=== PATIENT | female | born 1950 | race Caucasian/White ===

== ENCOUNTER 2018-01-11 10:46 | Emergency (ER) | payer OTHER, SELFPAY ==
[~2018-01-11] VITALS: Ht 165.1 cm; Wt 59.0 kg
[~2018-01-11 10:46] MED LIST: ACETAMINOPHEN; ALBU90OI6 INH; AMITRIPTYLINE 150 MG; ASCO500 PO; ASPI81CH PO; ASPI81EC; ASPI81EC PO; AZO; BISA5EC PO; BUTALBITAL; CAFFEINE; CELE200; CELE200 PO; CEPH500 PO; CETI10 PO; CHOL10002 PO; CLOP75 PO; CRANBERRY PO; CYAN1000 PO; CYCL10 PO; DIAZ5 PO; DICL75ER PO; DOXY100 PO; DULO60 PO; ERGO50000 PO; ESCI10 PO; ESCI20; ESCI20 PO; FISH1000 PO; GABA300 PO; GABA400 PO; GLIP10 PO; GLIP10ER; GLIP10ER PO; GLIP5 PO; GLYB5 PO; HYDCHL25 PO; HYDGUAL120 PO; LOSHYD100 PO; METF500; METF500 PO; METPRE4DP PO; MULVITMINF PO; NAPR500 PO; Norco 5-325 Ta1 EACH PO; OMEG1CAP30 PO; OXYACE5T PO; OXYACE7.5T PO; OXYC1TAB11 PO; OXYCODONE; PANT40 PO; PAXIL 37.5 MG; PHENA100 PO; PROACE100 PO; PROC10 PO; PROM25 PO; Percocet 10-321 EACH PO; RXPROM25 PO; SEROQUEL 50 MG; SITA100T2 PO; SOLI5 PO; VALS80; VALS80 PO; VIT B 12; VITAMIN B12; VITB100 PO
[2018-01-11 11:23] LABS: BASOPHILS ABSOLUTE AUTO 0.01 K/mm3 (0.00-0.23); BASOPHILS PERCENT AUTO 0 % (0-2); EOSINOPHILS ABSOLUTE AUTO 0.01 K/mm3 (0.00-0.68); EOSINOPHILS PERCENT AUTO 0 % (0-6); Hematocrit 36.9 % (33.0-51.0); Hemoglobin 12.4 g/dL (11.5-16.0); IMMATURE GRAN ABSOLUTE AUTO 0.12 K/mm3 (0.00-0.10); IMMATURE GRAN PERCENT AUTO 1 % (0-1); LYMPHOCYTES ABSOLUTE AUTO 2.57 K/mm3 (0.84-5.20); LYMPHOCYTES PERCENT AUTO 19 % (21-46); MONOCYTES ABSOLUTE AUTO 0.92 K/mm3 (0.16-1.47); MONOCYTES PERCENT AUTO 7 % (4-13); Mean Corpuscular HGB 28.5 pg (26.0-34.0); Mean Corpuscular HGB Conc 33.6 g/dL (31.5-36.5); Mean Corpuscular Volume 85 fL (80-100); Mean Platelet Volume 9.7 fL (9.1-12.4); NEUTROPHILS ABSOLUTE AUTO 10.01 K/mm3 (1.96-9.15); NEUTROPHILS PERCENT AUTO 73 % (41-73); Platelet Count 389 K/mm3 (150-400); RDW Coefficient Variation 12.4 % (11.7-14.2); RDW Standard Deviation 37.9 fL (35.1-46.3); Red Blood Cell Count 4.35 M/mm3 (3.80-5.20); White Blood Cell Count 13.64 K/mm3 (4.00-11.30)
[2018-01-11 11:43] LABS: Alanine Aminotransfer (ALT/SGP 19 U/L (12-78); Albumin, Blood 3.7 g/dL (3.4-5.0); Albumin/Globulin Ratio 0.9 (0.8-1.8); Alk Phos 81 U/L (50-136); Anion Gap 11 mmol/L (6-16); Aspartate Aminotrans (AST/SGOT 8 U/L (12-37); Bilirubin, Total 0.4 mg/dL (0.1-1.0); Blood Urea Nitrogen 55 mg/dL (8-24); Bun/Creatinine Ratio 30.9 (12.0-20.0); CO2, Blood 23 mmol/L (21-32); Calcium, Blood 9.5 mg/dL (8.5-10.1); Chloride, Blood 103 mmol/L (98-108); Creatinine, Blood 1.78 mg/dL (0.40-1.00); Globulin, Blood 3.9 g/dL (2.2-4.0); Glomerular Filtration Rate 30 (60-); Glucose, Blood 274 mg/dL (70-99); Potassium, Blood 4.4 mmol/L (3.5-5.5); Sodium, Blood 137 mmol/L (136-145); Total Protein, Blood 7.6 g/dL (6.4-8.2); Troponin I <0.015 ng/mL (0.000-0.040)
[2018-01-11 11:58] LABS: Influenza A Negative (NEGATIVE); Influenza B Negative (NEGATIVE)
[2018-01-11] MEDS ORDERED: ALBU90OI INH (12:08)
[2018-01-11] MEDS ORDERED: Prednisone20 MG PO (12:08)
== END 2018-01-11 13:24 | disposition home or self-care (01) ==
LOC: ER 10:46
PROVIDERS: Physician Assistant
DX: J44.1 Chronic obstructive pulmonary disease with (acute) exacerbation (principal); E11.9 Type 2 diabetes mellitus without complications; F17.200 Nicotine dependence, unspecified, uncomplicated; Z79.84 Long term (current) use of oral hypoglycemic drugs
CPT/HCPCS: 36415; 71046; 80053; 84484; 85025; 87070; 87186; 87205; 87804; 93005; 93010; 99284-25

== ENCOUNTER → 2018-10-29 | Outpatient (CLI) | payer OTHER ==
[~2018-10-29] MED LIST changes: +ACET325 PO; +ALBU90OI INH; +BISA10S PR; +BUDE10.22 INH; +FLUC150A PO; +GAVILAX17 GM PO; +Humulin R500 UNIT/1 SC; +INSULANPEN SC; +LEVFLO500; +LOSARTAN-HCTZ1 EAC2 PO; +ONDA4 PO; +Percocet 7.5-31 EACH PO; +Prednisone20 MG PO; +Synthroid75 MCG PO
[2018-10-29 18:55] LABS: Creatinine Urine 84.2 mg/dL (27.00-270.00); Protein, Urine Quantitative 11.9 mg/dL (0.0-11.9)
== END | disposition home or self-care (01) ==
LOC: LAB SRC 14:34 → LAB SHORT 14:34
PROVIDERS: Internal Medicine Nephrology
DX: N18.3 Chronic kidney disease, stage 3 (moderate) (principal); D63.1 Anemia in chronic kidney disease; N25.81 Secondary hyperparathyroidism of renal origin; E55.9 Vitamin D deficiency, unspecified; E78.00 Pure hypercholesterolemia, unspecified; D51.8 Other vitamin B12 deficiency anemias; D52.8 Other folate deficiency anemias; D50.9 Iron deficiency anemia, unspecified; R76.9 Abnormal immunological finding in serum, unspecified; R94.5 Abnormal results of liver function studies; R94.6 Abnormal results of thyroid function studies
CPT/HCPCS: 81050; 82043; 82570; 84156

== ENCOUNTER → 2019-01-27 | Outpatient (CLI) | payer OTHER | END | disposition home or self-care (01) | LOC: LAB SHORT 10:20 → LAB 10:20 | DX: N39.0 Urinary tract infection, site not specified (principal) | CPT/HCPCS: 87077; 87086; 87186 ==

== ENCOUNTER 2020-05-26 16:02 | Observation (INO) | payer OTHER ==
[~2020-05-26] VITALS: Ht 165.1 cm; Wt 61.3 kg
[~2020-05-26 16:02] MED LIST changes: -BUDE10.22 INH; -GAVILAX17 GM PO; +HUMULIN R100 UNIT/2 SC; -Humulin R500 UNIT/1 SC; +MIRALAX17 GM PO; +SYMBICORT 80-10.2 GM INH
[2020-05-26 16:26] LABS: Source, Urine Catheter
[2020-05-26 16:43] LABS: BASOPHILS ABSOLUTE AUTO 0.03 K/mm3 (0.00-0.23); BASOPHILS PERCENT AUTO 0 % (0-2); EOSINOPHILS ABSOLUTE AUTO 0.01 K/mm3 (0.00-0.68); EOSINOPHILS PERCENT AUTO 0 % (0-6); IMMATURE GRAN ABSOLUTE AUTO 0.09 K/mm3 (0.00-0.10); IMMATURE GRAN PERCENT AUTO 1 % (0-1); LYMPHOCYTES PERCENT AUTO 8 % (21-46); MONOCYTES ABSOLUTE AUTO 0.49 K/mm3 (0.16-1.47); MONOCYTES PERCENT AUTO 5 % (4-13); Mean Corpuscular HGB 27.8 pg (26.0-34.0); Mean Corpuscular HGB Conc 33.3 g/dL (31.5-36.5); Mean Corpuscular Volume 83 fL (80-100); Mean Platelet Volume 10.2 fL (9.1-12.4); NEUTROPHILS ABSOLUTE AUTO 8.15 K/mm3 (1.96-9.15); NEUTROPHILS PERCENT AUTO 85 % (41-73); Platelet Count 242 K/mm3 (150-400); RDW Coefficient Variation 12.7 % (11.7-14.2); Red Blood Cell Count 4.32 M/mm3 (3.80-5.20); White Blood Cell Count 9.57 K/mm3 (4.00-11.30)
[2020-05-26 16:55] LABS: Albumin, Blood 3.7 g/dL (3.4-5.0); Albumin/Globulin Ratio 0.9 (0.8-1.8); Bilirubin, Total 0.6 mg/dL (0.1-1.0); Bun/Creatinine Ratio 15.7 (12.0-20.0); Calcium, Blood 8.8 mg/dL (8.5-10.1); Creatinine, Blood 1.66 mg/dL (0.40-1.00); Globulin, Blood 3.9 g/dL (2.2-4.0); Potassium, Blood 3.6 mmol/L (3.5-5.5); Total Protein, Blood 7.6 g/dL (6.4-8.2)
[2020-05-26 17:13] LABS: Appearance, Urine Clear (Clear); Bilirubin, Urine Neg (Neg); Blood, Urine 2+ (Neg); Color, Urine Yellow (P-Yellow); Glucose Qualitative, Urine 2+ (Neg); Ketones, Urine 1+ (Neg); Leukocyte Esterase, Urine Neg (Neg); Nitrite, Urine Neg (Neg); Protein, Urine 2+ (Neg); Specific Gravity, Urine 1.015 (1.003-1.022); Urobilinogen, Urine NORM (Normal)
[2020-05-26 17:29] LABS: Bacteria Many /hpf; Squamous Epithelial Cells Rare /hpf (Few); White Blood Cells, Urine 0-2 /hpf (0-5)
[2020-05-26] MEDS ORDERED: ESCI20 PO (19:53)
[2020-05-26] MEDS ORDERED: SYNTHROID50 MC1 PO (19:56)
[2020-05-26] MEDS ORDERED: OXYCODONE-ACET1 EAC3 PO (19:57)
[2020-05-26] MEDS ORDERED: LOSARTAN POTAS100 M1 PO (19:58)
[2020-05-26] MEDS ORDERED: PLAVIX75 MG PO (19:58)
[2020-05-26] MEDS ORDERED: GLIP5 PO (19:59)
[2020-05-26 20:30] LABS: Thyroid Stimulating Hormone 0.562 uIU/mL (0.360-4.800)
[2020-05-26 20:39] LABS: Influenza A, PCR NEGATIVE (NEGATIVE); Influenza B, PCR NEGATIVE (NEGATIVE); Resp Syncytial Virus, PCR NEGATIVE (NEGATIVE); SARS-Cov-2 (COVID-19) PCR, MMC NEGATIVE (NEGATIVE)
[2020-05-26 20:44] LABS: Creatine Kinase MB 1.6 ng/mL (0.0-3.6); Creatine Kinase MB Index 0.5 (0.0-4.0)
[2020-05-27 00:10] LABS: Troponin I 0.024 ng/mL (0.000-0.040)
[2020-05-27 01:34] LABS: Creatine Kinase MB 1.5 ng/mL (0.0-3.6); Creatine Kinase MB Index 0.4 (0.0-4.0)
--- NOTE | 2020-05-27 06:35 | NUR ---
SHIFT SUMMARY- PT. NEW ADMIT FROM ED. A&OX2 WITH CONFUSION. HAS HX OF CVA WITH RT SIDED DEFICITS. PT. WEAK AND ON BEDREST LAST NIGHT. NO COMPLAINTS DURING THE NIGHT. RESTED QUIETLY IN BED MOST OF THE NIGHT, NO APPARENT DISTRESS NOTED. INCONT, ATTENDS IN PLACE. IV FLUIDS INFUSING, VSS. CALL LIGHT WITHIN REACH, SIDE RAILS UPX2, AND BED ALARM ON FOR SAFETY. WILL CONT TO MONITOR.
[2020-05-27] MEDS ORDERED: HYDCHL25 PO (07:31)
[2020-05-27] MEDS ORDERED: Ventolin/Prove6.7 GM INH (07:33)
[2020-05-27 07:41] LABS: BASOPHILS ABSOLUTE AUTO 0.02 K/mm3 (0.00-0.23); BASOPHILS PERCENT AUTO 0 % (0-2); EOSINOPHILS PERCENT AUTO 0 % (0-6); Hemoglobin 10.5 g/dL (11.5-16.0); IMMATURE GRAN ABSOLUTE AUTO 0.02 K/mm3 (0.00-0.10); IMMATURE GRAN PERCENT AUTO 0 % (0-1); LYMPHOCYTES ABSOLUTE AUTO 0.79 K/mm3 (0.84-5.20); LYMPHOCYTES PERCENT AUTO 16 % (21-46); MONOCYTES ABSOLUTE AUTO 0.45 K/mm3 (0.16-1.47); MONOCYTES PERCENT AUTO 9 % (4-13); Mean Corpuscular HGB 27.4 pg (26.0-34.0); Mean Corpuscular HGB Conc 32.8 g/dL (31.5-36.5); Mean Corpuscular Volume 84 fL (80-100); NEUTROPHILS ABSOLUTE AUTO 3.68 K/mm3 (1.96-9.15); NEUTROPHILS PERCENT AUTO 74 % (41-73); Platelet Count 204 K/mm3 (150-400); Red Blood Cell Count 3.83 M/mm3 (3.80-5.20); White Blood Cell Count 4.96 K/mm3 (4.00-11.30)
[2020-05-27 07:57] LABS: Troponin I 0.03 ng/mL (0.000-0.040)
[2020-05-27 08:01] LABS: Albumin/Globulin Ratio 0.8 (0.8-1.8); Bilirubin, Total 0.3 mg/dL (0.1-1.0); Bun/Creatinine Ratio 15.2 (12.0-20.0); Calcium, Blood 7.8 mg/dL (8.5-10.1); Creatinine, Blood 1.65 mg/dL (0.40-1.00); Globulin, Blood 3.6 g/dL (2.2-4.0); Potassium, Blood 3.4 mmol/L (3.5-5.5); Total Protein, Blood 6.6 g/dL (6.4-8.2)
[2020-05-27 08:14] LABS: Creatine Kinase MB 1.6 ng/mL (0.0-3.6); Creatine Kinase MB Index 0.4 (0.0-4.0)
[2020-05-27 08:32] LABS: U Amphetamine Screen Not Detected; U Barbituate Screen Not Detected; U Benzodiazapine Screen DETECTED; U Buprenorphine Screen Not Detected; U Cannabinoids Screen Not Detected; U Cocaine Screen Not Detected; U Methadone Screen Not Detected; U Methamphetamine Screen Not Detected; U Opiates Screen Not Detected; U Oxycodone Screen Not Detected; U Phencyclidine Screen Not Detected; U Propoxyphene Screen Not Detected
--- NOTE | 2020-05-27 12:51 | NUR ---
ECHOCARDIOGRAM COMPLETED
--- NOTE | 2020-05-27 17:29 | NUR ---
SHIFT SUMMARY- PT HAS BEEN AWAKE AND ALERT T/O THE DAY, PT ORIENTED TO PERSON AND PLACE. SLOW TO RESPOND AT TIMES. PT DENIES ANY COMPLANTS T/O THE DAY. 1 ASSIST WITH FWW TO BATHROOM. LS CLEAR/ DIMINISHED, ON RA, OCCASIONAL NPC NOTED. TELE SR WITH FIRST DEGREE AT 75. PT TOLERATING PO INTAKE. PT/OT RECOMMENDING SNF AT THIS TIME. NO OTHER ACUTE CHANGES THIS SHIFT.
[2020-05-28 05:51] LABS: BASOPHILS ABSOLUTE AUTO 0.06 K/mm3 (0.00-0.23); BASOPHILS PERCENT AUTO 1 % (0-2); EOSINOPHILS ABSOLUTE AUTO 0.56 K/mm3 (0.00-0.68); EOSINOPHILS PERCENT AUTO 10 % (0-6); Hematocrit 31.3 % (33.0-51.0); Hemoglobin 10.4 g/dL (11.5-16.0); IMMATURE GRAN ABSOLUTE AUTO 0.02 K/mm3 (0.00-0.10); IMMATURE GRAN PERCENT AUTO 0 % (0-1); LYMPHOCYTES PERCENT AUTO 34 % (21-46); MONOCYTES ABSOLUTE AUTO 0.79 K/mm3 (0.16-1.47); MONOCYTES PERCENT AUTO 14 % (4-13); Mean Corpuscular HGB 27.3 pg (26.0-34.0); Mean Corpuscular HGB Conc 33.2 g/dL (31.5-36.5); Mean Corpuscular Volume 82 fL (80-100); Mean Platelet Volume 10.3 fL (9.1-12.4); NEUTROPHILS ABSOLUTE AUTO 2.39 K/mm3 (1.96-9.15); NEUTROPHILS PERCENT AUTO 41 % (41-73); Platelet Count 194 K/mm3 (150-400); RDW Coefficient Variation 12.8 % (11.7-14.2); Red Blood Cell Count 3.81 M/mm3 (3.80-5.20); White Blood Cell Count 5.82 K/mm3 (4.00-11.30)
--- NOTE | 2020-05-28 05:58 | NUR ---
SHIFT SUMMARY- NO ACUTE EVENTS OVERNIGHT. PT. A&OX3, MENTATION IMPROVING. AWAKE MOST OF THE NIGHT. UP TO BATHROOM WITH 1 ASSIST AND WALKER, TOLERATED WELL. C/O R ARM PAIN MEDICATED PER EMAR WITH GOOD EFFECT. NO ACUTE DISTRESS NOTED, VSS. CALL LIGHT WITHIN REACH, SIDE RAILS UPX2, AND BED ALARM. WILL CONT TO MONITOR
[2020-05-28 06:17] LABS: Albumin, Blood 2.9 g/dL (3.4-5.0); Albumin/Globulin Ratio 0.9 (0.8-1.8); Bilirubin, Total 0.4 mg/dL (0.1-1.0); Calcium, Blood 7.7 mg/dL (8.5-10.1); Creatinine, Blood 1.65 mg/dL (0.40-1.00); Globulin, Blood 3.4 g/dL (2.2-4.0); Potassium, Blood 3.3 mmol/L (3.5-5.5); Total Protein, Blood 6.3 g/dL (6.4-8.2)
--- NOTE | 2020-05-28 16:45 | NUR ---
SHIFT SUMMARY- PT A/OX3, PLEASANT AND COOPERATIVE. PT REPORTS 3/10 CHRONIC LEFT SHOULDER PAIN. LS CEAR/ DIMINISHED IN THE BASES, ON RA. OCCASIONAL NPC NOTED. PT UP WITH 1 ASSIST WITH FWW TO BATHROOM, PT APPEARS TO BE STRONGER TODAY BUT STILL SLIGHTLY UNSTEADY AT TIMES. PT NOTED TO HAVE SOME CONTRACTURE TO RIGHT HAND WHICH SHE REPORTS IS CHRONIC R/T HX OF CVA. TELE SB AT 58. PT AWAITING SNF AT THIS TIME. NO OTHER ACUTE CHANGES THIS SHIFT.
--- NOTE | 2020-05-28 16:54 | NUR ---
REDNESS TO ARM- PT REPORTED REDNRESS TO RIGHT UPPER ARM, PT STATES SHE JUST NOTICED IT TODAY BUT THIS IS THE ARM THE SHE RECEIVED HER COVID VACCINE IN. RIGHT UPPER ARM DOES APPEAR TO BE RED DOWN TO THE ELBOW, MILD WARMTH NOTED. AREA MARKED AT THIS TIME.
[2020-05-29 05:13] LABS: Hematocrit 31.1 % (33.0-51.0); Hemoglobin 10.1 g/dL (11.5-16.0); Mean Corpuscular HGB 27.2 pg (26.0-34.0); Mean Corpuscular HGB Conc 32.5 g/dL (31.5-36.5); Mean Corpuscular Volume 84 fL (80-100); Mean Platelet Volume 10.6 fL (9.1-12.4); Platelet Count 205 K/mm3 (150-400); RDW Coefficient Variation 12.7 % (11.7-14.2); RDW Standard Deviation 38.5 fL (35.1-46.3); Red Blood Cell Count 3.72 M/mm3 (3.80-5.20); White Blood Cell Count 5.59 K/mm3 (4.00-11.30)
--- NOTE | 2020-05-29 05:30 | NUR ---
SHIFT SUMMARY- PT. A&OX3, MENTATION APPEARES TO BE AT BASELINE. PT. C/O OF RT ARM PAIN LAST NIGHT. NOTED RT ARM RED, SWOLLEN, AND WARM TO THE TOUCH. PER PT. THIS IS THE SITE WHERE RECEIVED COVID VACCINE. MEDICATED PER EMAR WITH GOOD EFFECT. PT. APPEARED TO HAVE RESTED COMFORTABLY T/O THE NIGHT, NO APPARENT DISTRESS NOTED. VSS. CALL LIGHT WITHIN REACH, SIDE RAILS UPX2, AND BED ALARM ON FOR SAFETY. WILL CONT TO MONITOR.
[2020-05-29 05:36] LABS: Albumin, Blood 2.7 g/dL (3.4-5.0); Albumin/Globulin Ratio 0.8 (0.8-1.8); Bilirubin, Total 0.2 mg/dL (0.1-1.0); Bun/Creatinine Ratio 18.8 (12.0-20.0); Calcium, Blood 7.8 mg/dL (8.5-10.1); Creatinine, Blood 1.7 mg/dL (0.40-1.00); Globulin, Blood 3.3 g/dL (2.2-4.0); Potassium, Blood 4.7 mmol/L (3.5-5.5)
== END 2020-05-29 15:49 | disposition home health service (06) ==
LOC: ER 16:02 → MEDS 16:03 → ENPENDDIS 05-29 14:20 → MEDS 05-29 15:49
PROVIDERS: Emergency Medicine; Internal Medicine; ADMIT Internal Medicine
DX: G93.40 Encephalopathy, unspecified (principal); I12.9 Hypertensive chronic kidney disease with stage 1 through stage 4 chronic kidney disease, or unspecified chronic kidney disease; N18.30 Chronic kidney disease, stage 3 unspecified; E11.22 Type 2 diabetes mellitus with diabetic chronic kidney disease; E11.51 Type 2 diabetes mellitus with diabetic peripheral angiopathy without gangrene; I65.21 Occlusion and stenosis of right carotid artery; E87.6 Hypokalemia; E03.9 Hypothyroidism, unspecified; E86.0 Dehydration; R53.1 Weakness; I72.0 Aneurysm of carotid artery; I69.322 Dysarthria following cerebral infarction; I69.351 Hemiplegia and hemiparesis following cerebral infarction affecting right dominant side; Z20.822 Contact with and (suspected) exposure to COVID-19; J44.9 Chronic obstructive pulmonary disease, unspecified; Z79.02 Long term (current) use of antithrombotics/antiplatelets; Z79.4 Long term (current) use of insulin; Z88.1 Allergy status to other antibiotic agents; Z88.0 Allergy status to penicillin; Z88.2 Allergy status to sulfonamides; Z88.8 Allergy status to other drugs, medicaments and biological substances
CPT/HCPCS: 0241U; 36415; 70450; 70496; 70498; 71045; 80053; 81001; 82140; 82550; 82553; 82947; 83605; 83880; 84145; 84443; 84484; 85025; 85027; 87086; 93005; 93010; 93306; 94640; 94760; 96372; 96374; 97110; 97162; 97165; 97530; 97535; 99285-25; A9270; G0378; J1650; J1885; J7030; Q9967

== ENCOUNTER 2021-02-22 18:20 | Emergency (ER) | payer OTHER ==
[~2021-02-22] VITALS: Ht 165.1 cm; Wt 63.5 kg
[~2021-02-22 18:20] MED LIST changes: +LOSARTAN POTAS100 M1 PO; +OXYCODONE-ACET1 EAC3 PO; +PLAVIX75 MG PO; +SYNTHROID50 MC1 PO; +Ventolin/Prove6.7 GM INH
[2021-02-22] MEDS ORDERED: LIDO700A20 TOP (20:02)
== END 2021-02-22 20:06 | disposition home or self-care (01) ==
LOC: ER 18:20
DX: S00.03XA Contusion of scalp, initial encounter (principal); Z88.0 Allergy status to penicillin; Z88.8 Allergy status to other drugs, medicaments and biological substances; Z88.2 Allergy status to sulfonamides; Z88.1 Allergy status to other antibiotic agents; Z79.4 Long term (current) use of insulin; Z79.899 Other long term (current) drug therapy; E11.9 Type 2 diabetes mellitus without complications; Z86.73 Personal history of transient ischemic attack (TIA), and cerebral infarction without residual deficits; Z87.891 Personal history of nicotine dependence; W18.30XA Fall on same level, unspecified, initial encounter
CPT/HCPCS: 70450; 72125; 99283-25; A9270

== ENCOUNTER 2021-05-25 14:24 | Emergency (ER) | payer OTHER ==
[~2021-05-25] VITALS: Ht 165.1 cm; Wt 63.5 kg
[~2021-05-25 14:24] MED LIST changes: +LIDO700A20 TOP
[2021-05-25 15:38] LABS: BASOPHILS ABSOLUTE AUTO 0.07 K/mm3 (0.00-0.23); BASOPHILS PERCENT AUTO 1 % (0-2); EOSINOPHILS ABSOLUTE AUTO 0.51 K/mm3 (0.00-0.68); EOSINOPHILS PERCENT AUTO 6 % (0-6); Hemoglobin 12.9 g/dL (11.5-16.0); IMMATURE GRAN ABSOLUTE AUTO 0.02 K/mm3 (0.00-0.10); IMMATURE GRAN PERCENT AUTO 0 % (0-1); LYMPHOCYTES ABSOLUTE AUTO 2.54 K/mm3 (0.84-5.20); LYMPHOCYTES PERCENT AUTO 32 % (21-46); MONOCYTES ABSOLUTE AUTO 0.62 K/mm3 (0.16-1.47); MONOCYTES PERCENT AUTO 8 % (4-13); Mean Corpuscular HGB Conc 32.3 g/dL (31.5-36.5); Mean Corpuscular Volume 87 fL (80-100); Mean Platelet Volume 9.6 fL (9.1-12.4); NEUTROPHILS ABSOLUTE AUTO 4.24 K/mm3 (1.96-9.15); NEUTROPHILS PERCENT AUTO 53 % (41-73); Platelet Count 309 K/mm3 (150-400); RDW Coefficient Variation 12.3 % (11.7-14.2); RDW Standard Deviation 39.4 fL (35.1-46.3); Red Blood Cell Count 4.61 M/mm3 (3.80-5.20)
[2021-05-25 15:46] LABS: Albumin, Blood 3.9 g/dL (3.4-5.0); Bilirubin, Total 0.2 mg/dL (0.1-1.0); Bun/Creatinine Ratio 14.5 (12.0-20.0); Calcium, Blood 8.8 mg/dL (8.5-10.1); Creatinine, Blood 1.52 mg/dL (0.40-1.00); Potassium, Blood 4.2 mmol/L (3.5-5.5); Total Protein, Blood 7.9 g/dL (6.4-8.2)
== END 2021-05-25 20:46 | disposition home or self-care (01) ==
LOC: ER 14:24
PROVIDERS: Physician Assistant
DX: R42 Dizziness and giddiness (principal); E11.9 Type 2 diabetes mellitus without complications; I10 Essential (primary) hypertension; Z79.899 Other long term (current) drug therapy; Z79.4 Long term (current) use of insulin; Z88.8 Allergy status to other drugs, medicaments and biological substances; Z88.0 Allergy status to penicillin; Z86.73 Personal history of transient ischemic attack (TIA), and cerebral infarction without residual deficits; Z87.891 Personal history of nicotine dependence; Z88.2 Allergy status to sulfonamides; Z88.1 Allergy status to other antibiotic agents
CPT/HCPCS: 36415; 80053; 85025; 93005; 93010; 99284-25

== ENCOUNTER → 2022-03-27 | Outpatient (CLI) | payer OTHER ==
[~2022-03-27] MED LIST changes: +AMLO10 PO
[2022-03-27 13:47] LABS: Alanine Aminotransfer (ALT/SGP 24 U/L (12-78); Albumin, Blood 2.8 g/dL (3.4-5.0); Albumin/Globulin Ratio 0.9 (0.8-1.8); Alk Phos 65 U/L (50-136); Anion Gap 5 mmol/L (6-16); Aspartate Aminotrans (AST/SGOT 19 U/L (12-37); Bilirubin, Total 0.2 mg/dL (0.1-1.0); Blood Urea Nitrogen 38 mg/dL (8-24); Bun/Creatinine Ratio 23.6 (12.0-20.0); CHOL/HDL RATIO 3.2; CO2, Blood 29 mmol/L (21-32); Calcium, Blood 8.9 mg/dL (8.5-10.1); Chloride, Blood 104 mmol/L (98-108); Cholesterol 146 mg/dL (50-200); Creatinine, Blood 1.61 mg/dL (0.40-1.00); Free Thyroxine 0.95 ng/dL (0.70-1.60); Globulin, Blood 3.1 g/dL (2.2-4.0); Glomerular Filtration Rate 34 (60-); Glucose, Blood 57 mg/dL (70-99); HDL Cholesterol 46 mg/dL (>39); LDL/HDL RATIO 1.7; Low Density Lipoprotein Chol 77 mg/dL (0-110); Potassium, Blood 4.3 mmol/L (3.5-5.5); Sodium, Blood 138 mmol/L (136-145); T3 Uptake 36 % (30-39); Total Protein, Blood 5.9 g/dL (6.4-8.2); Triglycerides 114 mg/dL (30-160); Very Low Density Lipoprot Chol 23 mg/dL (6-32)
[2022-03-27 14:25] LABS: Creatinine, Urine Random 38.6 mg/dL (27.00-270.00); Microalb/Creat Ratio UR, Rand 77.202 mg/g (0.000-30.000); Microalbumin, Random Urine 29.8 mg/L (0.000-20.000)
== END | disposition home or self-care (01) ==
LOC: LAB SHORT 07:20
PROVIDERS: Internal Medicine Hematology & Oncology
DX: E11.59 Type 2 diabetes mellitus with other circulatory complications (principal); E11.22 Type 2 diabetes mellitus with diabetic chronic kidney disease; I12.9 Hypertensive chronic kidney disease with stage 1 through stage 4 chronic kidney disease, or unspecified chronic kidney disease; N18.9 Chronic kidney disease, unspecified; E03.4 Atrophy of thyroid (acquired); E78.2 Mixed hyperlipidemia; M85.80 Other specified disorders of bone density and structure, unspecified site
CPT/HCPCS: 80053; 80061; 82043; 82306; 82570; 83036; 84156; 84439; 84443; 84479

== ENCOUNTER 2022-08-29 17:32 | Emergency (ER) | payer OTHER ==
[~2022-08-29] VITALS: Ht 165.1 cm; Wt 65.3 kg
[~2022-08-29 17:32] MED LIST changes: +DULCOLAX400 MG/5 M PO; +GUAI200; +LOPE2C PO; +NYSTRIT TOP; +PERISHIELD OIN452 GM TP; +ROSU5 PO; +SENN187 PO; +TUMS500 MG PO
[2022-08-29 21:30] VITALS: BP 165/72
[2022-08-29] MEDS ORDERED: HYDR1TAB94 PO (21:38)
[2022-08-29] MEDS ORDERED: NARCAN4 M1 INH (21:38)
== END 2022-08-29 22:25 ==
LOC: ER 17:32
DX: S72.141A Displaced intertrochanteric fracture of right femur, initial encounter for closed fracture (principal); W05.0XXA Fall from non-moving wheelchair, initial encounter; E11.22 Type 2 diabetes mellitus with diabetic chronic kidney disease; I12.9 Hypertensive chronic kidney disease with stage 1 through stage 4 chronic kidney disease, or unspecified chronic kidney disease; J44.9 Chronic obstructive pulmonary disease, unspecified; N18.9 Chronic kidney disease, unspecified; E03.9 Hypothyroidism, unspecified; M19.90 Unspecified osteoarthritis, unspecified site; Z87.891 Personal history of nicotine dependence
CPT/HCPCS: 72192; 73502; 99284-25

== ENCOUNTER 2022-08-31 19:12 | Inpatient (IN) | payer OTHER ==
[~2022-08-31] VITALS: Ht 167.6 cm; Wt 86.2 kg
[~2022-08-31 19:12] MED LIST changes: +HYDR1TAB94 PO; +NARCAN4 M1 INH
[2022-08-31 20:41] LABS: BASOPHILS ABSOLUTE AUTO 0.05 K/mm3 (0.00-0.23); BASOPHILS PERCENT AUTO 0 % (0-2); EOSINOPHILS ABSOLUTE AUTO 0.09 K/mm3 (0.00-0.68); EOSINOPHILS PERCENT AUTO 1 % (0-6); Hematocrit 31.3 % (33.0-51.0); Hemoglobin 10.2 g/dL (11.5-16.0); IMMATURE GRAN ABSOLUTE AUTO 0.05 K/mm3 (0.00-0.10); IMMATURE GRAN PERCENT AUTO 0 % (0-1); LYMPHOCYTES ABSOLUTE AUTO 1.83 K/mm3 (0.84-5.20); LYMPHOCYTES PERCENT AUTO 14 % (21-46); MONOCYTES PERCENT AUTO 10 % (4-13); Mean Corpuscular HGB 27.6 pg (26.0-34.0); Mean Corpuscular HGB Conc 32.6 g/dL (31.5-36.5); Mean Corpuscular Volume 85 fL (80-100); Mean Platelet Volume 9.3 fL (9.1-12.4); NEUTROPHILS ABSOLUTE AUTO 9.54 K/mm3 (1.96-9.15); NEUTROPHILS PERCENT AUTO 74 % (41-73); Platelet Count 235 K/mm3 (150-400); RDW Coefficient Variation 12.9 % (11.7-14.2); RDW Standard Deviation 39.7 fL (35.1-46.3); Red Blood Cell Count 3.69 M/mm3 (3.80-5.20); White Blood Cell Count 12.86 K/mm3 (4.00-11.30)
[2022-08-31 20:59] LABS: Albumin, Blood 3.2 g/dL (3.4-5.0); Albumin/Globulin Ratio 0.8 (0.8-1.8); Bilirubin, Total 0.3 mg/dL (0.1-1.0); Bun/Creatinine Ratio 19.5 (12.0-20.0); Calcium, Blood 8.2 mg/dL (8.5-10.1); Globulin, Blood 3.8 g/dL (2.2-4.0); Potassium, Blood 4.8 mmol/L (3.5-5.5)
[2022-08-31 21:08] LABS: Base Excess Venous 0.8 mmol/L; Bicarbonate Venous 24.8 mmol/L (24.0-30.0); PCO2 Venous 43.1 mmHg (38-42); pH Blood Venous 7.39 (7.34-7.37)
[2022-08-31 21:35] LABS: Source, Urine Straight Cath
[2022-08-31 21:37] LABS: Bilirubin, Urine Neg (Neg); Blood, Urine 3+ (Neg); Glucose Qualitative, Urine 3+ (Neg); Ketones, Urine Neg (Neg); Leukocyte Esterase, Urine Neg (Neg); Nitrite, Urine Neg (Neg); Protein, Urine 3+ (Neg); Specific Gravity, Urine 1.015 (1.003-1.022); Urobilinogen, Urine NORM (Normal)
[2022-08-31 21:42] LABS: Appearance, Urine Hazy (Clear); Color, Urine Yellow (P-Yellow)
[2022-08-31 21:43] LABS: Bacteria Many /hpf; Hyaline Casts 0-2 /lpf (0-2); Red Blood Cells, Urine 0-2 /hpf (0-2); Squamous Epithelial Cells Not Seen /hpf (Few)
[2022-09-01 00:21] VITALS: BP 142/109
[2022-09-01 05:26] VITALS: BP 144/53
--- NOTE | 2022-09-01 05:58 | NUR ---
PT ARRIVED TO THE UNIT FROM ED. ORIENTED TO THE ROOM. PT WAS INC OF URINE UPON ARRIVAL. SHE WAS CLEANED AND ATTENDS CHANGED. PT SLEPT FOR THE THE DURATION OF THIS SHIFT. INC THIS MORNING, PUREWIC PLACED. PT MEDICATED FOR PAIN NEEDED.
[2022-09-01 07:49] VITALS: BP 135/50
[2022-09-01 15:56] VITALS: BP 135/53
--- NOTE | 2022-09-01 17:59 | NUR ---
SHIFT SUMMARY: NO ACUTE EVENTS. IS CONFUSED, THINKS SHE'S IN HER TRAILER, WANTED TO GET DRESSED AND GO SHOPPING. HAD TO REINFORCE MANY TIMES THAT SHE WAS IN THE HOSPITAL. HAS DECUB ON R MEDIAL HEEL LIKELY FROM INTERNALLY ROTATING HER HIP. NEW IV PLACED AFTER SHE REMOVED THE TWO SHE HAD, FLUIDS INFUSING. GAVE TYLENOL FOR PAIN, WHICH ONLY GAVE PARTIAL RELIEF. DID NOT WANT TO GIVE NARCOTICS THIS MAY BE AFFECTING HER MENTATION.
[2022-09-01 20:03] VITALS: BP 168/71
[2022-09-02 04:42] VITALS: BP 162/75
[2022-09-02 05:46] LABS: BASOPHILS ABSOLUTE AUTO 0.05 K/mm3 (0.00-0.23); BASOPHILS PERCENT AUTO 0 % (0-2); EOSINOPHILS ABSOLUTE AUTO 0.07 K/mm3 (0.00-0.68); EOSINOPHILS PERCENT AUTO 1 % (0-6); Hematocrit 30.4 % (33.0-51.0); Hemoglobin 10.2 g/dL (11.5-16.0); IMMATURE GRAN ABSOLUTE AUTO 0.08 K/mm3 (0.00-0.10); IMMATURE GRAN PERCENT AUTO 1 % (0-1); LYMPHOCYTES ABSOLUTE AUTO 1.07 K/mm3 (0.84-5.20); LYMPHOCYTES PERCENT AUTO 9 % (21-46); MONOCYTES PERCENT AUTO 8 % (4-13); Mean Corpuscular HGB 27.2 pg (26.0-34.0); Mean Corpuscular HGB Conc 33.6 g/dL (31.5-36.5); Mean Corpuscular Volume 81 fL (80-100); Mean Platelet Volume 10.1 fL (9.1-12.4); NEUTROPHILS ABSOLUTE AUTO 9.64 K/mm3 (1.96-9.15); NEUTROPHILS PERCENT AUTO 81 % (41-73); Platelet Count 270 K/mm3 (150-400); RDW Coefficient Variation 12.4 % (11.7-14.2); RDW Standard Deviation 37.1 fL (35.1-46.3); Red Blood Cell Count 3.75 M/mm3 (3.80-5.20); White Blood Cell Count 11.91 K/mm3 (4.00-11.30)
[2022-09-02 06:23] LABS: Bun/Creatinine Ratio 22.1 (12.0-20.0); Creatinine, Blood 1.54 mg/dL (0.40-1.00); Potassium, Blood 4.1 mmol/L (3.5-5.5)
--- NOTE | 2022-09-02 06:40 | NUR ---
AOX2, PLEASANTLY CONFUSED, VSS ON RA, TOLERATING CARES, PATIENT PULLED 2 IV'S LAST NIGHT. CURRENTLY RUNNING FLUIDS AGAIN. LAST BM ON 09/02. PUREWICK IN PLACE AND FUNCTIONAL. HYPERTENSIVE WITH SBP IN 160'S, HYDRALAZINE PRN ORDERED FOR SBP GREATER THAN 170.
[2022-09-02 07:51] VITALS: BP 166/71
--- NOTE | 2022-09-02 12:10 | NUR ---
NURSE NOTE PATIENTS CBG WAS OVER 500. LAB WAS CALLED AND DRAW WAS PERFORMED. DR MARCUS WAS NOTIFIED AND RECEIVED ADDITIONAL ORDERS. PATIENTS FAMILY BROUGHT PATIENT SNACKS.
[2022-09-02 12:20] LABS: Glucose, Blood 589 mg/dL (70-99)
--- NOTE | 2022-09-02 12:40 | NUR ---
NURSE NOTE THIS RN AGREES WITH SHIFT ASSESSMENT OF STUDENT NURSE.
[2022-09-02 16:36] VITALS: BP 162/70
--- NOTE | 2022-09-02 17:16 | NUR ---
PT&OX3, SHE DOES NOT KNOW THE DATE, BUT IS AWARE OF THE TIME OF DAY. SHE DOESNT USE HER CALL BUTTON APPROPRIATELY, REQUIRING STAFF TO CHECK ON HER TO ASSESS NEEDS. PT REPORTS PAIN WHEN STAFF REPOSITIONS HER IN BED. CBGS CONTINUE TO BE ELEVATED, HUMALOG GIVEN. AT 1153, LAB REPORTED THAT THE PT'S BLOOD SUGAR WAS 586, 10 UNITS OF HUMALOG GIVEN. PT IS AFEBRILE, BUT ALL OTHER VITAL SIGNS ARE STABLE. PLAN IS TO DISCHARGE PT BACK TO [facility] TOMORROW. WILL CONTINUE PLAN OF CARE.
[2022-09-02 20:09] VITALS: BP 145/70
--- NOTE | 2022-09-02 22:22 | NUR ---
START OF SHIFT THIS STUDENT NURSE ASSUMED CARE OF PT AT 1700 UNDER THE OBSERVATION OF NURSE FARTUN ARAUJO. PT SLEEPY BUT AROUSABLE, AND APPEARED TO BE IN NO DISTRESS OR DISCOMFORT. PT TEMP SLIGHTLY ELEVATED, TYLENOL PLANNED TO BE ADMINISTERED TO ADDRESS IT. BP ELEVATED, WILL MONITOR FOR S/S DURING SHIFT NO MEDICATION ORDERED FOR HS. 30 UNITS OF GLARGINE ADMINISTERED AND VERIFIED BY NURSE FARTUN ARAUJO AND MURALI WEIR. PT LEFT IN A POSITION OF COMFORT AND SAFETY WITH BED RAILS RAISED, NONSKID SOCKS IN PLACE, BED IN LOW POSITION, CALL LIGHT WITHIN REACH, AND BED ALARM ENABLED. WILL CONTINUE TO MONITOR.
--- NOTE | 2022-09-03 03:22 | NUR ---
SHIFT SUMMARY THIS STUDENT NURSE ADDRESSED THE PT'S CONDITION THROUGH THE ASSESSMENT AND MONITORING OF THE PT'S CONDITION THROUGHOUT MY SHIFT. SHE WAS ROUSABLE AND RESPONSIVE TO VERBAL STIMULI. SHE WAS A&O X3 FOR MOST OF THE SHIFT. LOOKING AT POSSIBLE D/C TO [facility] ON 09/03. HS MEDICATION ADMINISTERED, ASSESSENT COMPLETED. WILL CONTINUE TO MONITOR HER CONDITION THROUGHOUT THE SHIFT. PT KEPT IN A STATE OF COMFORT AND SAFETY WITH BED RAILS RAISED, BED IN LOW POSITION, CALL LIGHT WITHIN REACH, AND BED ALARM ACTIVATED.
[2022-09-03 04:04] VITALS: BP 159/57
--- NOTE | 2022-09-03 06:08 | NUR ---
I HAVE OBSERVED STUDENTS ASSESSMENTS, INTERACTIONS WITH PT AND HER DOCUMENTAION. I AGREE WITH THE ABOVE.
[2022-09-03 07:52] VITALS: BP 148/57
[2022-09-03 15:41] VITALS: BP 144/60
--- NOTE | 2022-09-03 18:12 | NUR ---
PT A&OX4, CALLS APPROPRIATELY. PT'S ORIENTATION HAS IMPROVED SINCE YESTERDAY. SHE DID NOT USE HER CALL LIGHT YESTERDAY BUT TODAY SHE CALLS EVERYTIME SHE NEEDS PAIN MEDS AND/OR NEEDS TO GET ON THE BEDPAN. CBGS CONTINUE TO RUN HIGH, NOTIFIED, 8 UNITS OF HUMALOG GIVEN BEFORE LUNCH WELL DINNER. PT REPORTS HIP PAIN, TYLENOL GIVEN AND EFFECTIVE. PT WILL BECOME NPO AT MIDNIGHT FOR POSSIBLE HIP SURGERY TOMORROW. WILL CONTINUE PLAN OF CARE.
[2022-09-03 21:04] VITALS: BP 150/56
--- NOTE | 2022-09-03 22:59 | NUR ---
JAZZ ODONNELL CALLED GLORIA BEARD TO REPORT PTS BS BEING 400. ONE TIME ORDER OF 6 UNITS OF HUMALOG ORDERED.
[2022-09-04] VITALS (12 sets, daily range): BP systolic 114–159; BP diastolic 53–87
--- NOTE | 2022-09-04 04:22 | NUR ---
SHIFT SUMMARY; NO ACUTE CHANGES OVERNIGHT. THE PT HAS BEEN SLEEPING IN BED FOR THE ENTIRETY OF THE NIGHT. THE PT WAS MADE NPO AT MIDNIGHT, PER REPORT THE PT IS HAVING A SURGICAL PROCEDURE DONE TODAY ON HER R HIP. THE PT DENIES ANY SOB, CHEST PAIN/PRESSURE, N/V OR NUMBNESS AND TINGLING. CURRENTLY THE PT IS SLEEPIING IN BED WITH THE BED IN THE LOWEST POSITION AND THE CALL LIGHT AT BEDSIDE.
--- NOTE | 2022-09-04 10:45 | NUR ---
TO OR FOR HIP SURG.
--- NOTE | 2022-09-04 12:46 | NUR ---
09/04/22 Rubin6 Norma Aragon PT RECEIVED PREOPERATIVE BLOCK PERFORMED BY DR. LOCKETT
--- NOTE | 2022-09-04 14:39 | NUR ---
PACU NOTE PT DENTURES ARE IN PLACE UPON TRANSFER TO MEDICAL FLOOR
--- NOTE | 2022-09-04 14:47 | NUR ---
RETURNED FROM PACU R HIP WITH 3 MIHAELA DRNGS, C/D/I. VSS. DENIES PAIN.
--- NOTE | 2022-09-04 18:43 | NUR ---
SHIFT SUMMARY PT REMAINS WITHDRAWN & QUIET. ANSWERS YES OR NO APPROPRIATELY TO QUESTIONS ASKED, OFFERS NO EXTRA DIALOGUE. IS ABLE TO MAKE HER NEEDS KNOWN. DRSNGS ON R HIP REMAIN C/D/I. PT EVAL WAS DONE TODAY, ALTHOUGH PT WAS UNABLE TO PARTICIPATE TODAY. WGHT BEARING STATUS IS TOE TOUCH ONLY WITH THE R FOOT. MEDICATED ONCE FOR C/O PAIN AFTER SURG. PT WAS HUNGRY AT DINNER, DIET ORDER ENTERED FOR ADA DIET. PROVIDED SANDWICH FOR DINNER. CALL LIGHT WITHIN REACH, BED IN LOW POSITION.
[2022-09-05 04:46] VITALS: BP 135/56
[2022-09-05 05:30] LABS: BASOPHILS ABSOLUTE AUTO 0.01 K/mm3 (0.00-0.23); BASOPHILS PERCENT AUTO 0 % (0-2); EOSINOPHILS PERCENT AUTO 0 % (0-6); Hematocrit 25.2 % (33.0-51.0); Hemoglobin 8.3 g/dL (11.5-16.0); IMMATURE GRAN ABSOLUTE AUTO 0.05 K/mm3 (0.00-0.10); IMMATURE GRAN PERCENT AUTO 1 % (0-1); LYMPHOCYTES ABSOLUTE AUTO 0.89 K/mm3 (0.84-5.20); LYMPHOCYTES PERCENT AUTO 9 % (21-46); MONOCYTES ABSOLUTE AUTO 0.46 K/mm3 (0.16-1.47); MONOCYTES PERCENT AUTO 5 % (4-13); Mean Corpuscular HGB 26.9 pg (26.0-34.0); Mean Corpuscular HGB Conc 32.9 g/dL (31.5-36.5); Mean Corpuscular Volume 82 fL (80-100); Mean Platelet Volume 9.5 fL (9.1-12.4); NEUTROPHILS PERCENT AUTO 85 % (41-73); Platelet Count 313 K/mm3 (150-400); RDW Coefficient Variation 13.1 % (11.7-14.2); RDW Standard Deviation 38.9 fL (35.1-46.3); Red Blood Cell Count 3.08 M/mm3 (3.80-5.20); White Blood Cell Count 9.61 K/mm3 (4.00-11.30)
[2022-09-05 07:32] VITALS: BP 130/59
[2022-09-05 15:24] VITALS: BP 142/49
--- NOTE | 2022-09-05 17:36 | NUR ---
SHIFT SUMMARY PATIENT IS ALERT AND ORIENTED. PATIENT HAS HAD NO ACUTE EVENTS THIS SHIFT. VITAL SIGNS REVIEWED. PATIENT HAS HAD PAIN THIS SHIFT. MEDICATED PER EMAR. PATIENT HAS NOT COMPLAINED OF SOB, NAUSEA OR VOMITTING THIS SHIFT. BED IN LOCKED AND LOWEST POSITION. CALL LIGHT IN PLACE. PATIENT IS LOOKING FORWARD TO DISCHARGING TOMORROW.
[2022-09-05 19:15] VITALS: BP 137/54
--- NOTE | 2022-09-06 03:43 | NUR ---
SHIFT UNREMARKABLE. PT TOOK 2100 MEDICATIONS WITHOUT DIFFICULTY AND HAS SLEPT THROUGH MUCH OF REMAINDER OF SHIFT. PUREWICK IN PLACE AND DRAINING WELL. PLENTY OF URINE OUTPUT OVER COURSE OF SHIFT. EARLY THIS MORNING PT COMPLAINED OF BURNING SENSATION IN FEET THAT WAS ALLEVIATED BY TEMPORARILY REMOVING STOCKINGS. OTHERWISE HAS HAD ONLY MILD PAIN WELL MANAGED VIA EMAR. PT HAS BEEN AOX3-4 THROUGHOUT SHIFT. PLEASANT, COOPERATIVE WITH CARE. BED LOCKED IN LOWEST POSITION. CALL LIGHT LEFT WITHIN REACH.
[2022-09-06 05:13] VITALS: BP 145/61
[2022-09-06 07:38] VITALS: BP 158/63
[2022-09-06 09:46] LABS: Influenza A, PCR NEGATIVE (NEGATIVE); Influenza B, PCR NEGATIVE (NEGATIVE); Resp Syncytial Virus, PCR NEGATIVE (NEGATIVE); SARS-Cov-2 (COVID-19) PCR, MMC NEGATIVE (NEGATIVE)
[2022-09-06] MEDS ORDERED: OXYC5 PO (12:23)
[2022-09-06 14:42] VITALS: BP 120/47
--- NOTE | 2022-09-06 15:44 | NUR ---
SHIFT/DISCHARGE SUMMARY: NO NEW ACUTE CHANGES IN PATIENT CONDITION THIS SHIFT. PATIENT A&OX3. CALM, PLEASANT AND COOPERATIVE c CARE. USES CALL LIGHT APPROPRIATELY AND ABLE TO MAKE NEEDS KNOWN. PATIENT REPORTS PAIN TO R HIP. MEDICATED X1 c PO OXYCODONE AND TYLENOL THIS SHIFT c ADEQUATE RELIEF. PATIENT BS RANGES [id number] THIS SHIFT. RECEIVED INSULIN COVERAGE PER SLIDING SCALE. REPOSITIONED, AND ORAL CARE DONE. MIPELEX HEEL PROTECTOR DRESSING TO BILAT HEEL CHANGED TODAY. VITAL SIGNS REVIEWED. IV TO L WRIST SL AND DC'D. PATIENT DISCHARGE TO [facility] FACILITY FOR REHABILATATION. DISCHARGE PACKET AND RX HARD SCRIPTS FOR OXYCODONE WAS SENT WITH THE PIN MACHINE TENDER PERSONNEL TO THE FACILITY. EDUCATE PT REGARDING ADMITTING DX, S/S, TX, PAIN TO HIP AND REPOSITIONING. PATIENT STATED UNDERSTADING AND NO FURTHER QUESTION. RX WAS FAXED TO [facility] BY HACKSAW INSPECTOR. ALL PATIENT PERSONAL BELONGINGS WERE SENT WITH THE PATIENT. PATIENT LEFT THE ROOM AT AROUND 1527 AND TRANSPORTED VIA WHEELCHAIR BY [employer] PIN MACHINE TENDER PERSONNEL TO [facility].
== END 2022-09-06 15:27 | DRG 480 ==
LOC: ER 19:12 → MEDS 19:13 → ENPENDDIS 09-06 10:31 → MEDS 09-06 15:27
PROVIDERS: Emergency Medicine; Internal Medicine; Orthopaedic Surgery; ADMIT Internal Medicine
PROC: 0QS634Z Reposition Right Upper Femur with Internal Fixation Device, Percutaneous Approach (ICD-10-PCS; principal; 2022-09-04 11:00)
DX: S72.144A Nondisplaced intertrochanteric fracture of right femur, initial encounter for closed fracture (principal); G92.8 Other toxic encephalopathy; N17.9 Acute kidney failure, unspecified; D62 Acute posthemorrhagic anemia; T40.2X5A Adverse effect of other opioids, initial encounter; E86.0 Dehydration; I12.9 Hypertensive chronic kidney disease with stage 1 through stage 4 chronic kidney disease, or unspecified chronic kidney disease; E11.22 Type 2 diabetes mellitus with diabetic chronic kidney disease; N18.30 Chronic kidney disease, stage 3 unspecified; J44.9 Chronic obstructive pulmonary disease, unspecified; E03.9 Hypothyroidism, unspecified; F41.9 Anxiety disorder, unspecified; F32.A Depression, unspecified; M21.851 Other specified acquired deformities of right thigh; B95.5 Unspecified streptococcus as the cause of diseases classified elsewhere; W19.XXXA Unspecified fall, initial encounter; F01.50 Vascular dementia, unspecified severity, without behavioral disturbance, psychotic disturbance, mood disturbance, and anxiety; M19.90 Unspecified osteoarthritis, unspecified site; Z90.710 Acquired absence of both cervix and uterus; Z99.3 Dependence on wheelchair; Z98.890 Other specified postprocedural states; Z87.891 Personal history of nicotine dependence; Z88.0 Allergy status to penicillin; Z88.8 Allergy status to other drugs, medicaments and biological substances; Z88.2 Allergy status to sulfonamides; Z88.1 Allergy status to other antibiotic agents; Z79.51 Long term (current) use of inhaled steroids; Z79.02 Long term (current) use of antithrombotics/antiplatelets; Z79.84 Long term (current) use of oral hypoglycemic drugs; Z79.4 Long term (current) use of insulin; Z79.899 Other long term (current) drug therapy; Z79.890 Hormone replacement therapy; Z79.891 Long term (current) use of opiate analgesic; Z86.16 Personal history of COVID-19; Z20.822 Contact with and (suspected) exposure to COVID-19
CPT/HCPCS: 0241U; 36415; 70450; 71045; 73502; 80048; 80053; 81001; 82565; 82803; 82947; 83880; 85025; 87086; 93005; 93010; 94762; 96361; 96372; 96374; 97110; 97112; 97162; 97530; 99285-25; A9270; C1713; G0378; J1650; J1815; J2704; J3010; J7030; J7120; P9612; S0077

== ENCOUNTER 2022-09-17 12:11 | Emergency (ER) | payer OTHER ==
[~2022-09-17] VITALS: Ht 165.1 cm; Wt 63.5 kg
[~2022-09-17 12:11] MED LIST changes: +OXYC5 PO
[2022-09-17 14:39] VITALS: BP 118/75
== END 2022-09-17 14:39 | disposition home or self-care (01) ==
LOC: ER 12:11
DX: Z48.01 Encounter for change or removal of surgical wound dressing (principal); E11.9 Type 2 diabetes mellitus without complications; Z79.890 Hormone replacement therapy; Z79.899 Other long term (current) drug therapy; Z79.4 Long term (current) use of insulin; Z88.0 Allergy status to penicillin; Z88.2 Allergy status to sulfonamides; Z88.1 Allergy status to other antibiotic agents; Z87.891 Personal history of nicotine dependence
CPT/HCPCS: 99281

== ENCOUNTER 2022-11-14 02:43 | Emergency (ER) | payer OTHER ==
[~2022-11-14] VITALS: Ht 162.6 cm; Wt 72.6 kg
[2022-11-14] MEDS ORDERED: Voltaren100 GM TOP ×2 (05:32→06:25)
[2022-11-14 06:04] VITALS: BP 141/51
== END 2022-11-14 07:25 | disposition home or self-care (01) ==
LOC: ER 02:43
DX: M79.652 Pain in left thigh (principal); M79.662 Pain in left lower leg; Z96.641 Presence of right artificial hip joint; I12.9 Hypertensive chronic kidney disease with stage 1 through stage 4 chronic kidney disease, or unspecified chronic kidney disease; E11.22 Type 2 diabetes mellitus with diabetic chronic kidney disease; N18.30 Chronic kidney disease, stage 3 unspecified; E03.9 Hypothyroidism, unspecified; J44.9 Chronic obstructive pulmonary disease, unspecified; Z88.0 Allergy status to penicillin; Z88.1 Allergy status to other antibiotic agents; Z88.2 Allergy status to sulfonamides; Z88.8 Allergy status to other drugs, medicaments and biological substances; Z79.4 Long term (current) use of insulin; Z79.84 Long term (current) use of oral hypoglycemic drugs; Z79.899 Other long term (current) drug therapy; Z87.891 Personal history of nicotine dependence
CPT/HCPCS: 93971; 99284-25; A9270

== ENCOUNTER 2022-11-21 04:03 | Emergency (ER) | payer OTHER ==
[~2022-11-21] VITALS: Ht 165.1 cm; Wt 72.6 kg
[~2022-11-21 04:03] MED LIST changes: +Voltaren100 GM TOP
[2022-11-21 04:34] LABS: BASOPHILS ABSOLUTE AUTO 0.06 K/mm3 (0.00-0.23); BASOPHILS PERCENT AUTO 1 % (0-2); EOSINOPHILS ABSOLUTE AUTO 0.56 K/mm3 (0.00-0.68); EOSINOPHILS PERCENT AUTO 7 % (0-6); Hematocrit 31.4 % (33.0-51.0); IMMATURE GRAN ABSOLUTE AUTO 0.03 K/mm3 (0.00-0.10); IMMATURE GRAN PERCENT AUTO 0 % (0-1); LYMPHOCYTES ABSOLUTE AUTO 2.31 K/mm3 (0.84-5.20); LYMPHOCYTES PERCENT AUTO 28 % (21-46); MONOCYTES ABSOLUTE AUTO 0.81 K/mm3 (0.16-1.47); MONOCYTES PERCENT AUTO 10 % (4-13); Mean Corpuscular HGB 26.5 pg (26.0-34.0); Mean Corpuscular HGB Conc 31.8 g/dL (31.5-36.5); Mean Corpuscular Volume 83 fL (80-100); Mean Platelet Volume 9.4 fL (9.1-12.4); NEUTROPHILS ABSOLUTE AUTO 4.38 K/mm3 (1.96-9.15); NEUTROPHILS PERCENT AUTO 54 % (41-73); Platelet Count 304 K/mm3 (150-400); RDW Coefficient Variation 13.6 % (11.7-14.2); RDW Standard Deviation 41.1 fL (35.1-46.3); Red Blood Cell Count 3.77 M/mm3 (3.80-5.20); White Blood Cell Count 8.15 K/mm3 (4.00-11.30)
[2022-11-21 04:46] LABS: Bun/Creatinine Ratio 21.4 (12.0-20.0); Calcium, Blood 8.6 mg/dL (8.5-10.1); Creatinine, Blood 1.68 mg/dL (0.40-1.00); Potassium, Blood 3.6 mmol/L (3.5-5.5)
[2022-11-21 06:40] VITALS: BP 154/75
== END 2022-11-21 06:48 | disposition home or self-care (01) ==
LOC: ER 04:03
PROVIDERS: Emergency Medicine
DX: T38.3X1A Poisoning by insulin and oral hypoglycemic [antidiabetic] drugs, accidental (unintentional), initial encounter (principal); E11.649 Type 2 diabetes mellitus with hypoglycemia without coma; E11.22 Type 2 diabetes mellitus with diabetic chronic kidney disease; I12.9 Hypertensive chronic kidney disease with stage 1 through stage 4 chronic kidney disease, or unspecified chronic kidney disease; N18.30 Chronic kidney disease, stage 3 unspecified; Z88.0 Allergy status to penicillin; Z88.8 Allergy status to other drugs, medicaments and biological substances; Z88.1 Allergy status to other antibiotic agents; Z79.899 Other long term (current) drug therapy; Z79.4 Long term (current) use of insulin; E03.9 Hypothyroidism, unspecified; J44.9 Chronic obstructive pulmonary disease, unspecified; Z87.891 Personal history of nicotine dependence
CPT/HCPCS: 80048; 82947; 85025; 99285

== ENCOUNTER 2022-11-27 16:09 | Emergency (ER) | payer OTHER ==
[~2022-11-27] VITALS: Ht 165.1 cm; Wt 72.6 kg
[2022-11-27] MEDS ORDERED: NOVOLOG FL100 UNIT/3 SC (17:28)
[2022-11-27] MEDS ORDERED: GABA300 PO (17:30)
[2022-11-27] MEDS ORDERED: PIOG15 PO (17:31)
[2022-11-27 18:02] LABS: BASOPHILS ABSOLUTE AUTO 0.07 K/mm3 (0.00-0.23); BASOPHILS PERCENT AUTO 1 % (0-2); EOSINOPHILS ABSOLUTE AUTO 0.45 K/mm3 (0.00-0.68); EOSINOPHILS PERCENT AUTO 5 % (0-6); Hematocrit 33.4 % (33.0-51.0); Hemoglobin 10.7 g/dL (11.5-16.0); IMMATURE GRAN ABSOLUTE AUTO 0.04 K/mm3 (0.00-0.10); IMMATURE GRAN PERCENT AUTO 1 % (0-1); LYMPHOCYTES ABSOLUTE AUTO 1.89 K/mm3 (0.84-5.20); LYMPHOCYTES PERCENT AUTO 22 % (21-46); MONOCYTES ABSOLUTE AUTO 0.89 K/mm3 (0.16-1.47); MONOCYTES PERCENT AUTO 10 % (4-13); Mean Corpuscular HGB 26.7 pg (26.0-34.0); Mean Corpuscular Volume 83 fL (80-100); Mean Platelet Volume 9.8 fL (9.1-12.4); NEUTROPHILS ABSOLUTE AUTO 5.39 K/mm3 (1.96-9.15); NEUTROPHILS PERCENT AUTO 62 % (41-73); Platelet Count 349 K/mm3 (150-400); RDW Coefficient Variation 13.8 % (11.7-14.2); RDW Standard Deviation 42.1 fL (35.1-46.3); Red Blood Cell Count 4.01 M/mm3 (3.80-5.20); White Blood Cell Count 8.73 K/mm3 (4.00-11.30)
[2022-11-27 18:04] LABS: Albumin, Blood 3.5 g/dL (3.4-5.0); Albumin/Globulin Ratio 0.9 (0.8-1.8); Bilirubin, Total 0.2 mg/dL (0.1-1.0); Bun/Creatinine Ratio 22.9 (12.0-20.0); Calcium, Blood 8.8 mg/dL (8.5-10.1); Creatinine, Blood 2.05 mg/dL (0.40-1.00); Globulin, Blood 3.9 g/dL (2.2-4.0); Potassium, Blood 4.2 mmol/L (3.5-5.5); Total Protein, Blood 7.4 g/dL (6.4-8.2)
[2022-11-27 18:10] LABS: International Normalized Ratio 0.97; Prothrombin Time Results 10.2 Sec (9.7-11.5)
[2022-11-27 20:57] VITALS: BP 135/58
== END 2022-11-27 21:13 | disposition home or self-care (01) ==
LOC: ER 16:09
PROVIDERS: Emergency Medicine
DX: S09.90XA Unspecified injury of head, initial encounter (principal); M54.2 Cervicalgia; M79.605 Pain in left leg; W05.0XXA Fall from non-moving wheelchair, initial encounter; Z88.0 Allergy status to penicillin; Z88.2 Allergy status to sulfonamides; Z88.1 Allergy status to other antibiotic agents; Z79.899 Other long term (current) drug therapy; Z79.4 Long term (current) use of insulin; M19.90 Unspecified osteoarthritis, unspecified site; E11.22 Type 2 diabetes mellitus with diabetic chronic kidney disease; N18.30 Chronic kidney disease, stage 3 unspecified; I12.9 Hypertensive chronic kidney disease with stage 1 through stage 4 chronic kidney disease, or unspecified chronic kidney disease; J44.9 Chronic obstructive pulmonary disease, unspecified; Z87.891 Personal history of nicotine dependence
CPT/HCPCS: 70450; 72125; 73522; 73552; 73590; 80053; 85025; 85610; 93005; 93010; 99285-25

== ENCOUNTER → 2022-12-02 | Outpatient (CLI) | payer OTHER ==
[~2022-12-02] MED LIST changes: +NOVOLOG FL100 UNIT/3 SC; +PIOG15 PO
[2022-12-02 11:12] LABS: BASOPHILS ABSOLUTE AUTO 0.07 K/mm3 (0.00-0.23); BASOPHILS PERCENT AUTO 1 % (0-2); EOSINOPHILS ABSOLUTE AUTO 0.31 K/mm3 (0.00-0.68); EOSINOPHILS PERCENT AUTO 4 % (0-6); Hematocrit 35.9 % (33.0-51.0); Hemoglobin 11.1 g/dL (11.5-16.0); IMMATURE GRAN ABSOLUTE AUTO 0.02 K/mm3 (0.00-0.10); IMMATURE GRAN PERCENT AUTO 0 % (0-1); LYMPHOCYTES ABSOLUTE AUTO 1.69 K/mm3 (0.84-5.20); LYMPHOCYTES PERCENT AUTO 22 % (21-46); MONOCYTES ABSOLUTE AUTO 0.53 K/mm3 (0.16-1.47); MONOCYTES PERCENT AUTO 7 % (4-13); Mean Corpuscular HGB 26.4 pg (26.0-34.0); Mean Corpuscular HGB Conc 30.9 g/dL (31.5-36.5); Mean Corpuscular Volume 85 fL (80-100); NEUTROPHILS ABSOLUTE AUTO 5.19 K/mm3 (1.96-9.15); NEUTROPHILS PERCENT AUTO 66 % (41-73); Platelet Count 363 K/mm3 (150-400); RDW Coefficient Variation 13.6 % (11.7-14.2); RDW Standard Deviation 42.7 fL (35.1-46.3); Red Blood Cell Count 4.21 M/mm3 (3.80-5.20); White Blood Cell Count 7.81 K/mm3 (4.00-11.30)
[2022-12-02 11:48] LABS: Alanine Aminotransfer (ALT/SGP 35 U/L (12-78); Albumin, Blood 3.3 g/dL (3.4-5.0); Albumin/Globulin Ratio 0.8 (0.8-1.8); Alk Phos 107 U/L (50-136); Anion Gap 3 mmol/L (6-16); Aspartate Aminotrans (AST/SGOT 27 U/L (12-37); Bilirubin, Total 0.4 mg/dL (0.1-1.0); Blood Urea Nitrogen 42 mg/dL (8-24); Bun/Creatinine Ratio 24.3 (12.0-20.0); CHOL/HDL RATIO 3.2; CO2, Blood 27 mmol/L (21-32); Calcium, Blood 8.4 mg/dL (8.5-10.1); Chloride, Blood 110 mmol/L (98-108); Cholesterol 186 mg/dL (50-200); Creatinine, Blood 1.73 mg/dL (0.40-1.00); Free Thyroxine 0.82 ng/dL (0.70-1.60); Glomerular Filtration Rate 31 (60-); Glucose, Blood 115 mg/dL (70-99); HDL Cholesterol 58 mg/dL (>39); LDL/HDL RATIO 1.9; Low Density Lipoprotein Chol 112 mg/dL (0-110); Potassium, Blood 4.4 mmol/L (3.5-5.5); Sodium, Blood 140 mmol/L (136-145); Total Protein, Blood 7.3 g/dL (6.4-8.2); Triglycerides 81 mg/dL (30-160); Very Low Density Lipoprot Chol 16 mg/dL (6-32)
== END ==
LOC: LAB 09:16 → LAB SHORT 09:16
PROVIDERS: Nurse Practitioner Family
DX: E11.22 Type 2 diabetes mellitus with diabetic chronic kidney disease (principal); N18.30 Chronic kidney disease, stage 3 unspecified; D63.1 Anemia in chronic kidney disease; D50.9 Iron deficiency anemia, unspecified; E03.4 Atrophy of thyroid (acquired)
CPT/HCPCS: 80053; 80061; 83036; 84439; 84443; 85025

== ENCOUNTER 2022-12-17 13:20 | Emergency (ER) | payer OTHER ==
[~2022-12-17] VITALS: Ht 165.1 cm; Wt 72.6 kg
[2022-12-17 13:48] VITALS: BP 145/54
== END 2022-12-17 19:10 | disposition home or self-care (01) ==
LOC: ER 13:20
DX: S93.402A Sprain of unspecified ligament of left ankle, initial encounter (principal); X50.1XXA Overexertion from prolonged static or awkward postures, initial encounter; I12.9 Hypertensive chronic kidney disease with stage 1 through stage 4 chronic kidney disease, or unspecified chronic kidney disease; E11.22 Type 2 diabetes mellitus with diabetic chronic kidney disease; N18.30 Chronic kidney disease, stage 3 unspecified; J44.9 Chronic obstructive pulmonary disease, unspecified; E03.9 Hypothyroidism, unspecified; Z88.0 Allergy status to penicillin; Z88.1 Allergy status to other antibiotic agents; Z88.8 Allergy status to other drugs, medicaments and biological substances; Z88.2 Allergy status to sulfonamides; Z79.899 Other long term (current) drug therapy; Z79.4 Long term (current) use of insulin; Z87.891 Personal history of nicotine dependence
CPT/HCPCS: 29515; 73610; 99283-25

== ENCOUNTER 2022-12-24 11:14 | Emergency (ER) | payer OTHER ==
[~2022-12-24] VITALS: Ht 162.6 cm; Wt 68.0 kg
[2022-12-24 12:27] LABS: BASOPHILS ABSOLUTE AUTO 0.12 K/mm3 (0.00-0.23); BASOPHILS PERCENT AUTO 2 % (0-2); EOSINOPHILS ABSOLUTE AUTO 0.71 K/mm3 (0.00-0.68); EOSINOPHILS PERCENT AUTO 9 % (0-6); Hematocrit 33.2 % (33.0-51.0); Hemoglobin 10.6 g/dL (11.5-16.0); IMMATURE GRAN ABSOLUTE AUTO 0.01 K/mm3 (0.00-0.10); IMMATURE GRAN PERCENT AUTO 0 % (0-1); LYMPHOCYTES ABSOLUTE AUTO 2.24 K/mm3 (0.84-5.20); LYMPHOCYTES PERCENT AUTO 30 % (21-46); MONOCYTES ABSOLUTE AUTO 0.86 K/mm3 (0.16-1.47); MONOCYTES PERCENT AUTO 11 % (4-13); Mean Corpuscular HGB Conc 31.9 g/dL (31.5-36.5); Mean Corpuscular Volume 81 fL (80-100); Mean Platelet Volume 9.4 fL (9.1-12.4); NEUTROPHILS ABSOLUTE AUTO 3.66 K/mm3 (1.96-9.15); NEUTROPHILS PERCENT AUTO 48 % (41-73); Platelet Count 328 K/mm3 (150-400); RDW Standard Deviation 40.8 fL (35.1-46.3); Red Blood Cell Count 4.08 M/mm3 (3.80-5.20)
[2022-12-24 12:52] LABS: Albumin/Globulin Ratio 0.8 (0.8-1.8); Bilirubin, Total 0.1 mg/dL (0.1-1.0); Bun/Creatinine Ratio 21.3 (12.0-20.0); Calcium, Blood 8.7 mg/dL (8.5-10.1); Creatinine, Blood 1.78 mg/dL (0.40-1.00); Globulin, Blood 3.6 g/dL (2.2-4.0); Potassium, Blood 4.5 mmol/L (3.5-5.5); Total Protein, Blood 6.6 g/dL (6.4-8.2)
[2022-12-24 15:16] LABS: Source, Urine Voided
[2022-12-24 15:23] LABS: Appearance, Urine Clear (Clear); Bilirubin, Urine Neg (Neg); Blood, Urine Neg (Neg); Glucose Qualitative, Urine Neg (Neg); Ketones, Urine Neg (Neg); Leukocyte Esterase, Urine 1+ (Neg); Nitrite, Urine Pos (Neg); Protein, Urine 1+ (Neg); Urobilinogen, Urine NORM (Normal); pH, Urine 6.5 (5.0-8.0)
[2022-12-24 15:36] LABS: Color, Urine Pale Yellow (P-Yellow)
[2022-12-24 15:38] LABS: Bacteria Many /hpf; Red Blood Cells, Urine 0-2 /hpf (0-2); Squamous Epithelial Cells Rare /hpf (Few)
[2022-12-24] MEDS ORDERED: NITR100CA PO (17:00)
[2022-12-24 18:05] VITALS: BP 161/71
== END 2022-12-24 18:05 | disposition home or self-care (01) ==
LOC: ER 11:14
PROVIDERS: Emergency Medicine
DX: E11.65 Type 2 diabetes mellitus with hyperglycemia (principal); I12.9 Hypertensive chronic kidney disease with stage 1 through stage 4 chronic kidney disease, or unspecified chronic kidney disease; E11.22 Type 2 diabetes mellitus with diabetic chronic kidney disease; N18.30 Chronic kidney disease, stage 3 unspecified; J44.9 Chronic obstructive pulmonary disease, unspecified; E03.9 Hypothyroidism, unspecified; Z88.0 Allergy status to penicillin; Z88.1 Allergy status to other antibiotic agents; Z88.8 Allergy status to other drugs, medicaments and biological substances; Z88.2 Allergy status to sulfonamides; Z79.899 Other long term (current) drug therapy; Z87.891 Personal history of nicotine dependence
CPT/HCPCS: 51701; 80053; 81001; 82947; 85025; 93005; 93010; 96360; 96361; 99284-25; A9270; J7030

== ENCOUNTER 2022-12-25 15:20 | Emergency (ER) | payer OTHER ==
[~2022-12-25] VITALS: Ht 165.1 cm; Wt 72.6 kg
[~2022-12-25 15:20] MED LIST changes: +NITR100CA PO
[2022-12-25 17:14] LABS: BASOPHILS ABSOLUTE AUTO 0.09 K/mm3 (0.00-0.23); BASOPHILS PERCENT AUTO 1 % (0-2); EOSINOPHILS ABSOLUTE AUTO 0.77 K/mm3 (0.00-0.68); EOSINOPHILS PERCENT AUTO 10 % (0-6); Hematocrit 37.3 % (33.0-51.0); Hemoglobin 11.8 g/dL (11.5-16.0); IMMATURE GRAN ABSOLUTE AUTO 0.02 K/mm3 (0.00-0.10); IMMATURE GRAN PERCENT AUTO 0 % (0-1); LYMPHOCYTES ABSOLUTE AUTO 2.35 K/mm3 (0.84-5.20); LYMPHOCYTES PERCENT AUTO 30 % (21-46); MONOCYTES ABSOLUTE AUTO 0.87 K/mm3 (0.16-1.47); MONOCYTES PERCENT AUTO 11 % (4-13); Mean Corpuscular HGB 25.9 pg (26.0-34.0); Mean Corpuscular HGB Conc 31.6 g/dL (31.5-36.5); Mean Corpuscular Volume 82 fL (80-100); Mean Platelet Volume 9.5 fL (9.1-12.4); NEUTROPHILS ABSOLUTE AUTO 3.69 K/mm3 (1.96-9.15); NEUTROPHILS PERCENT AUTO 47 % (41-73); Platelet Count 353 K/mm3 (150-400); RDW Standard Deviation 41.1 fL (35.1-46.3); Red Blood Cell Count 4.56 M/mm3 (3.80-5.20); White Blood Cell Count 7.79 K/mm3 (4.00-11.30)
[2022-12-25 17:35] LABS: Bun/Creatinine Ratio 17.6 (12.0-20.0); Calcium, Blood 9.4 mg/dL (8.5-10.1); Creatinine, Blood 2.16 mg/dL (0.40-1.00); Potassium, Blood 4.2 mmol/L (3.5-5.5)
[2022-12-25 19:45] VITALS: BP 150/76
== END 2022-12-25 22:42 | disposition home or self-care (01) ==
LOC: ER 15:20
PROVIDERS: Emergency Medicine
DX: N39.0 Urinary tract infection, site not specified (principal); E11.65 Type 2 diabetes mellitus with hyperglycemia; I12.9 Hypertensive chronic kidney disease with stage 1 through stage 4 chronic kidney disease, or unspecified chronic kidney disease; E11.22 Type 2 diabetes mellitus with diabetic chronic kidney disease; N18.30 Chronic kidney disease, stage 3 unspecified; E03.9 Hypothyroidism, unspecified; J44.9 Chronic obstructive pulmonary disease, unspecified; Z88.0 Allergy status to penicillin; Z88.1 Allergy status to other antibiotic agents; Z88.8 Allergy status to other drugs, medicaments and biological substances; Z88.2 Allergy status to sulfonamides; Z79.899 Other long term (current) drug therapy; Z79.4 Long term (current) use of insulin; Z87.891 Personal history of nicotine dependence
CPT/HCPCS: 70450; 80048; 85025; 96365; 96366; 99285-25; J0696

== ENCOUNTER 2023-01-15 12:01 | Emergency (ER) | payer OTHER ==
[~2023-01-15] VITALS: Ht 165.1 cm; Wt 72.6 kg
[2023-01-15] MEDS ORDERED: CLIN300 PO (13:14)
[2023-01-15 15:29] VITALS: BP 149/64
== END 2023-01-15 15:30 | disposition home or self-care (01) ==
LOC: ER 12:01
DX: S90.922A Unspecified superficial injury of left foot, initial encounter (principal); L03.116 Cellulitis of left lower limb; E11.9 Type 2 diabetes mellitus without complications; X58.XXXA Exposure to other specified factors, initial encounter; Z88.0 Allergy status to penicillin; Z88.8 Allergy status to other drugs, medicaments and biological substances; Z88.2 Allergy status to sulfonamides; Z88.1 Allergy status to other antibiotic agents; Z79.899 Other long term (current) drug therapy; Z79.4 Long term (current) use of insulin; M19.90 Unspecified osteoarthritis, unspecified site; E11.22 Type 2 diabetes mellitus with diabetic chronic kidney disease; N18.30 Chronic kidney disease, stage 3 unspecified; I12.9 Hypertensive chronic kidney disease with stage 1 through stage 4 chronic kidney disease, or unspecified chronic kidney disease; E03.9 Hypothyroidism, unspecified; J44.9 Chronic obstructive pulmonary disease, unspecified; Z87.891 Personal history of nicotine dependence
CPT/HCPCS: 99283

== ENCOUNTER 2023-01-23 13:14 | Emergency (ER) | payer OTHER ==
[~2023-01-23] VITALS: Ht 165.1 cm; Wt 113.4 kg
[~2023-01-23 13:14] MED LIST changes: +CLIN300 PO
[2023-01-23 20:00] VITALS: BP 120/56
== END 2023-01-23 20:05 | disposition home or self-care (01) ==
LOC: ER 13:14
DX: B34.9 Viral infection, unspecified (principal); M79.605 Pain in left leg; M79.604 Pain in right leg; S91.302A Unspecified open wound, left foot, initial encounter; E03.9 Hypothyroidism, unspecified; J44.9 Chronic obstructive pulmonary disease, unspecified; I12.9 Hypertensive chronic kidney disease with stage 1 through stage 4 chronic kidney disease, or unspecified chronic kidney disease; E11.22 Type 2 diabetes mellitus with diabetic chronic kidney disease; N18.30 Chronic kidney disease, stage 3 unspecified; Z88.0 Allergy status to penicillin; Z88.1 Allergy status to other antibiotic agents; Z88.8 Allergy status to other drugs, medicaments and biological substances; Z88.2 Allergy status to sulfonamides; Z79.02 Long term (current) use of antithrombotics/antiplatelets; Z79.4 Long term (current) use of insulin; Z79.899 Other long term (current) drug therapy; Z87.891 Personal history of nicotine dependence; X58.XXXA Exposure to other specified factors, initial encounter
CPT/HCPCS: 99283; A9270; J7030

== ENCOUNTER 2023-02-13 05:21 | Day surgery (SDC) | payer OTHER | END 2023-02-13 22:38 | disposition home or self-care (01) | LOC: WOUND 05:21 | DX: E11.621 Type 2 diabetes mellitus with foot ulcer (principal); E11.59 Type 2 diabetes mellitus with other circulatory complications; E11.22 Type 2 diabetes mellitus with diabetic chronic kidney disease; N18.4 Chronic kidney disease, stage 4 (severe); J44.9 Chronic obstructive pulmonary disease, unspecified; G89.29 Other chronic pain; I87.2 Venous insufficiency (chronic) (peripheral); E11.51 Type 2 diabetes mellitus with diabetic peripheral angiopathy without gangrene | CPT/HCPCS: A9270; G0463 ==

== ENCOUNTER 2023-02-17 11:40 | Emergency (ER) | payer OTHER ==
[~2023-02-17] VITALS: Ht 165.1 cm; Wt 52.2 kg
[2023-02-17 14:19] LABS: BASOPHILS ABSOLUTE AUTO 0.09 K/mm3 (0.00-0.23); BASOPHILS PERCENT AUTO 1 % (0-2); EOSINOPHILS ABSOLUTE AUTO 0.52 K/mm3 (0.00-0.68); EOSINOPHILS PERCENT AUTO 6 % (0-6); Hemoglobin 12.2 g/dL (11.5-16.0); IMMATURE GRAN ABSOLUTE AUTO 0.02 K/mm3 (0.00-0.10); IMMATURE GRAN PERCENT AUTO 0 % (0-1); LYMPHOCYTES ABSOLUTE AUTO 1.82 K/mm3 (0.84-5.20); LYMPHOCYTES PERCENT AUTO 20 % (21-46); MONOCYTES ABSOLUTE AUTO 0.93 K/mm3 (0.16-1.47); MONOCYTES PERCENT AUTO 10 % (4-13); Mean Corpuscular HGB 24.1 pg (26.0-34.0); Mean Corpuscular HGB Conc 31.3 g/dL (31.5-36.5); Mean Corpuscular Volume 77 fL (80-100); Mean Platelet Volume 9.8 fL (9.1-12.4); NEUTROPHILS ABSOLUTE AUTO 5.82 K/mm3 (1.96-9.15); NEUTROPHILS PERCENT AUTO 63 % (41-73); Platelet Count 379 K/mm3 (150-400); RDW Coefficient Variation 14.5 % (11.7-14.2); RDW Standard Deviation 39.4 fL (35.1-46.3); Red Blood Cell Count 5.07 M/mm3 (3.80-5.20)
[2023-02-17 14:36] LABS: Albumin, Blood 2.9 g/dL (3.4-5.0); Albumin/Globulin Ratio 0.7 (0.8-1.8); Bilirubin, Total 0.1 mg/dL (0.1-1.0); Bun/Creatinine Ratio 17.8 (12.0-20.0); Creatinine, Blood 1.69 mg/dL (0.40-1.00); Potassium, Blood 4.1 mmol/L (3.5-5.5); Total Protein, Blood 6.9 g/dL (6.4-8.2)
[2023-02-17 15:00] VITALS: BP 139/60
[2023-02-17] MEDS ORDERED: Cephalexin500 MG PO (17:05)
[2023-02-17] MEDS ORDERED: HYDR1TAB94 PO (17:05)
== END 2023-02-17 18:43 | disposition home or self-care (01) ==
LOC: ER 11:40
PROVIDERS: Emergency Medicine
DX: E11.621 Type 2 diabetes mellitus with foot ulcer (principal); L97.529 Non-pressure chronic ulcer of other part of left foot with unspecified severity; L03.116 Cellulitis of left lower limb; E11.9 Type 2 diabetes mellitus without complications; Z88.0 Allergy status to penicillin; Z88.8 Allergy status to other drugs, medicaments and biological substances; Z88.2 Allergy status to sulfonamides; Z88.1 Allergy status to other antibiotic agents; Z79.899 Other long term (current) drug therapy; Z79.4 Long term (current) use of insulin; E11.22 Type 2 diabetes mellitus with diabetic chronic kidney disease; N18.30 Chronic kidney disease, stage 3 unspecified; I12.9 Hypertensive chronic kidney disease with stage 1 through stage 4 chronic kidney disease, or unspecified chronic kidney disease; E03.9 Hypothyroidism, unspecified; J44.9 Chronic obstructive pulmonary disease, unspecified; M19.90 Unspecified osteoarthritis, unspecified site; Z87.891 Personal history of nicotine dependence
CPT/HCPCS: 73701; 80053; 85025; 90471; 90715; 99284-25; J7030; Q9967

== ENCOUNTER 2023-02-20 05:05 | Day surgery (SDC) | payer OTHER ==
[~2023-02-20 05:05] MED LIST changes: +Cephalexin500 MG PO
== END 2023-02-20 22:47 | disposition home or self-care (01) ==
LOC: WOUND 05:05
DX: E11.621 Type 2 diabetes mellitus with foot ulcer (principal); L97.522 Non-pressure chronic ulcer of other part of left foot with fat layer exposed; L89.890 Pressure ulcer of other site, unstageable; E11.22 Type 2 diabetes mellitus with diabetic chronic kidney disease; N18.4 Chronic kidney disease, stage 4 (severe); J44.9 Chronic obstructive pulmonary disease, unspecified; G89.29 Other chronic pain; I87.2 Venous insufficiency (chronic) (peripheral); E11.51 Type 2 diabetes mellitus with diabetic peripheral angiopathy without gangrene; E11.21 Type 2 diabetes mellitus with diabetic nephropathy; E11.42 Type 2 diabetes mellitus with diabetic polyneuropathy
CPT/HCPCS: 93922; 93970; A9270; G0463

== ENCOUNTER 2023-02-27 02:25 | Day surgery (SDC) | payer OTHER | END 2023-02-27 22:50 | disposition home or self-care (01) | LOC: WOUND 02:25 | DX: E11.621 Type 2 diabetes mellitus with foot ulcer (principal); L97.522 Non-pressure chronic ulcer of other part of left foot with fat layer exposed; L97.529 Non-pressure chronic ulcer of other part of left foot with unspecified severity; E11.59 Type 2 diabetes mellitus with other circulatory complications; E11.22 Type 2 diabetes mellitus with diabetic chronic kidney disease; N18.4 Chronic kidney disease, stage 4 (severe); J44.9 Chronic obstructive pulmonary disease, unspecified; G89.29 Other chronic pain; I87.2 Venous insufficiency (chronic) (peripheral); E11.51 Type 2 diabetes mellitus with diabetic peripheral angiopathy without gangrene; E11.21 Type 2 diabetes mellitus with diabetic nephropathy | CPT/HCPCS: G0463 ==

== ENCOUNTER 2023-03-20 01:13 | Day surgery (SDC) | payer OTHER | END 2023-03-20 22:46 | disposition home or self-care (01) | LOC: WOUND 01:13 | DX: E11.621 Type 2 diabetes mellitus with foot ulcer (principal); L97.523 Non-pressure chronic ulcer of other part of left foot with necrosis of muscle; L89.890 Pressure ulcer of other site, unstageable; E11.59 Type 2 diabetes mellitus with other circulatory complications; E11.22 Type 2 diabetes mellitus with diabetic chronic kidney disease; N18.4 Chronic kidney disease, stage 4 (severe); J44.9 Chronic obstructive pulmonary disease, unspecified; G89.29 Other chronic pain; I87.2 Venous insufficiency (chronic) (peripheral); E11.51 Type 2 diabetes mellitus with diabetic peripheral angiopathy without gangrene; E11.21 Type 2 diabetes mellitus with diabetic nephropathy | CPT/HCPCS: A9270 ==

== ENCOUNTER 2023-03-27 02:52 | Day surgery (SDC) | payer OTHER | END 2023-03-27 22:56 | disposition home or self-care (01) | LOC: WOUND 02:52 | DX: E11.621 Type 2 diabetes mellitus with foot ulcer (principal); L97.523 Non-pressure chronic ulcer of other part of left foot with necrosis of muscle; L89.890 Pressure ulcer of other site, unstageable; E11.51 Type 2 diabetes mellitus with diabetic peripheral angiopathy without gangrene; I70.245 Atherosclerosis of native arteries of left leg with ulceration of other part of foot; E11.59 Type 2 diabetes mellitus with other circulatory complications; E11.22 Type 2 diabetes mellitus with diabetic chronic kidney disease; N18.4 Chronic kidney disease, stage 4 (severe); J44.9 Chronic obstructive pulmonary disease, unspecified; G89.29 Other chronic pain; I87.2 Venous insufficiency (chronic) (peripheral); E11.21 Type 2 diabetes mellitus with diabetic nephropathy | CPT/HCPCS: 87071; 87075; 87077; 87147; 87186; 87205; A9270 ==

== ENCOUNTER 2023-04-15 11:19 | Day surgery (SDC) | payer OTHER ==
[~2023-04-15] VITALS: Ht 165.1 cm; Wt 72.0 kg
[2023-04-15] VITALS (8 sets, daily range): BP systolic 88–136; BP diastolic 50–114
[2023-04-15 13:26] LABS: Albumin, Blood 3.1 g/dL (3.4-5.0); Albumin/Globulin Ratio 0.7 (0.8-1.8); Bilirubin, Total 0.3 mg/dL (0.1-1.0); Bun/Creatinine Ratio 16.5 (12.0-20.0); Calcium, Blood 7.6 mg/dL (8.5-10.1); Creatinine, Blood 1.58 mg/dL (0.40-1.00); Globulin, Blood 4.3 g/dL (2.2-4.0); Potassium, Blood 4.2 mmol/L (3.5-5.5); Total Protein, Blood 7.4 g/dL (6.4-8.2)
[2023-04-15 13:41] LABS: BASOPHILS ABSOLUTE AUTO 0.08 K/mm3 (0.00-0.23); BASOPHILS PERCENT AUTO 1 % (0-2); EOSINOPHILS ABSOLUTE AUTO 0.58 K/mm3 (0.00-0.68); EOSINOPHILS PERCENT AUTO 6 % (0-6); Hematocrit 34.3 % (33.0-51.0); Hemoglobin 10.8 g/dL (11.5-16.0); IMMATURE GRAN ABSOLUTE AUTO 0.03 K/mm3 (0.00-0.10); IMMATURE GRAN PERCENT AUTO 0 % (0-1); LYMPHOCYTES ABSOLUTE AUTO 2.06 K/mm3 (0.84-5.20); LYMPHOCYTES PERCENT AUTO 21 % (21-46); MONOCYTES ABSOLUTE AUTO 0.86 K/mm3 (0.16-1.47); MONOCYTES PERCENT AUTO 9 % (4-13); Mean Corpuscular HGB 23.5 pg (26.0-34.0); Mean Corpuscular HGB Conc 31.5 g/dL (31.5-36.5); Mean Corpuscular Volume 75 fL (80-100); Mean Platelet Volume 8.9 fL (9.1-12.4); NEUTROPHILS ABSOLUTE AUTO 6.42 K/mm3 (1.96-9.15); NEUTROPHILS PERCENT AUTO 64 % (41-73); Platelet Count 255 K/mm3 (150-400); RDW Coefficient Variation 18.7 % (11.7-14.2); RDW Standard Deviation 49.1 fL (35.1-46.3); White Blood Cell Count 10.03 K/mm3 (4.00-11.30)
--- NOTE | 2023-04-15 16:00 | NUR ---
PT BACK TO RECOVERY FROM PROCEDURE. R GROIN OOZING SMALL AMOUNT OF BLOOD. SITE INJECTED /C LIDO /C EPI. R GROIN STOPPED OOZING POST INJECTION. GROIN SITE SOFT AND NONTENDER. R GROIN DRSG CHANGED. WARM BLACKET GIVEN.
--- NOTE | 2023-04-15 17:06 | NUR ---
took over care from Diogo Calhoun RN. site is soft no bleeding at this time. dressing D&I. bruising noted around site and pubic area. pulse doppler right foot. patient denies any disvcomfort.
--- NOTE | 2023-04-15 17:19 | NUR ---
cbg 134
--- NOTE | 2023-04-15 17:45 | NUR ---
RIGHT GROIN SITE UNCHANGED/STABLE
--- NOTE | 2023-04-15 18:45 | NUR ---
REPORT GIVEN TO [facility] STAFF. IV REMOVED. PT TAKEN OUT OF THE HRT CENTER VIA W/C.
== END 2023-04-15 18:47 | disposition home or self-care (01) ==
LOC: MHTC 11:19
PROVIDERS: Radiology Diagnostic Radiology
DX: E11.51 Type 2 diabetes mellitus with diabetic peripheral angiopathy without gangrene (principal); I70.223 Atherosclerosis of native arteries of extremities with rest pain, bilateral legs; L97.529 Non-pressure chronic ulcer of other part of left foot with unspecified severity; E11.22 Type 2 diabetes mellitus with diabetic chronic kidney disease; I12.9 Hypertensive chronic kidney disease with stage 1 through stage 4 chronic kidney disease, or unspecified chronic kidney disease; N18.4 Chronic kidney disease, stage 4 (severe); J44.9 Chronic obstructive pulmonary disease, unspecified; E03.9 Hypothyroidism, unspecified; Z88.2 Allergy status to sulfonamides; Z88.8 Allergy status to other drugs, medicaments and biological substances; Z79.899 Other long term (current) drug therapy; Z79.4 Long term (current) use of insulin
CPT/HCPCS: 76937; 80053; 82947; 85025; 85347; 99152; 99153; C1725; C1760; C1769; C1876; C1887; C1894; C2623; J1644; J2250; J3010; J7030; Q9967

== ENCOUNTER 2023-05-14 14:50 | Emergency (ER) | payer OTHER ==
[~2023-05-14] VITALS: Ht 167.6 cm; Wt 63.5 kg
[2023-05-14] MEDS ORDERED: Keflex500 MG PO (17:41)
[2023-05-14 18:30] VITALS: BP 137/59
== END 2023-05-14 19:16 | disposition home or self-care (01) ==
LOC: ER 14:50
DX: E11.621 Type 2 diabetes mellitus with foot ulcer (principal); L97.529 Non-pressure chronic ulcer of other part of left foot with unspecified severity; R41.82 Altered mental status, unspecified; M19.90 Unspecified osteoarthritis, unspecified site; I12.9 Hypertensive chronic kidney disease with stage 1 through stage 4 chronic kidney disease, or unspecified chronic kidney disease; E11.22 Type 2 diabetes mellitus with diabetic chronic kidney disease; N18.30 Chronic kidney disease, stage 3 unspecified; E03.9 Hypothyroidism, unspecified; J44.9 Chronic obstructive pulmonary disease, unspecified; Z88.0 Allergy status to penicillin; Z88.1 Allergy status to other antibiotic agents; Z88.8 Allergy status to other drugs, medicaments and biological substances; Z88.2 Allergy status to sulfonamides; Z79.02 Long term (current) use of antithrombotics/antiplatelets; Z79.4 Long term (current) use of insulin; Z79.899 Other long term (current) drug therapy; Z79.890 Hormone replacement therapy; Z87.891 Personal history of nicotine dependence
CPT/HCPCS: 82947; 93005; 93010; 99285-25; A9270

== ENCOUNTER → 2023-05-27 | Outpatient (CLI) | payer OTHER ==
[~2023-05-27] MED LIST changes: +Keflex500 MG PO
[2023-05-27 15:06] LABS: Albumin, Blood 3.1 g/dL (3.4-5.0); Anion Gap 2 mmol/L (6-16); Blood Urea Nitrogen 49 mg/dL (8-24); Bun/Creatinine Ratio 26.5 (12.0-20.0); CO2, Blood 32 mmol/L (21-32); Calcium, Blood 9.5 mg/dL (8.5-10.1); Chloride, Blood 97 mmol/L (98-108); Creatinine, Blood 1.85 mg/dL (0.40-1.00); Glomerular Filtration Rate 29 (60-); Glucose, Blood 419 mg/dL (70-99); Phosphorus, Blood 4.1 mg/dL (2.5-4.9); Potassium, Blood 5.2 mmol/L (3.5-5.5); Sodium, Blood 131 mmol/L (136-145)
== END ==
LOC: LAB 11:50 → LAB SHORT 11:50
PROVIDERS: Internal Medicine Nephrology
DX: N18.30 Chronic kidney disease, stage 3 unspecified (principal)
CPT/HCPCS: 80069

== ENCOUNTER 2023-08-02 19:35 | Emergency (ER) | payer OTHER ==
[~2023-08-02] VITALS: Ht 165.1 cm; Wt 68.0 kg
[~2023-08-02 19:35] MED LIST changes: +CEFP200 PO; +Zithromax250 MG PO
[2023-08-02 20:21] LABS: BASOPHILS ABSOLUTE AUTO 0.12 K/mm3 (0.00-0.23); BASOPHILS PERCENT AUTO 1 % (0-2); EOSINOPHILS PERCENT AUTO 4 % (0-6); Hematocrit 39.7 % (33.0-51.0); IMMATURE GRAN ABSOLUTE AUTO 0.05 K/mm3 (0.00-0.10); IMMATURE GRAN PERCENT AUTO 0 % (0-1); LYMPHOCYTES PERCENT AUTO 8 % (21-46); MONOCYTES ABSOLUTE AUTO 0.87 K/mm3 (0.16-1.47); MONOCYTES PERCENT AUTO 6 % (4-13); Mean Corpuscular HGB 23.1 pg (26.0-34.0); Mean Corpuscular HGB Conc 30.2 g/dL (31.5-36.5); Mean Corpuscular Volume 77 fL (80-100); Mean Platelet Volume 9.1 fL (9.1-12.4); NEUTROPHILS ABSOLUTE AUTO 11.97 K/mm3 (1.96-9.15); NEUTROPHILS PERCENT AUTO 81 % (41-73); Platelet Count 475 K/mm3 (150-400); RDW Standard Deviation 41.6 fL (35.1-46.3); Red Blood Cell Count 5.19 M/mm3 (3.80-5.20); White Blood Cell Count 14.81 K/mm3 (4.00-11.30)
[2023-08-02] MEDS ORDERED: CEFD300 PO (20:28)
[2023-08-02 20:34] LABS: Albumin, Blood 3.2 g/dL (3.4-5.0); Albumin/Globulin Ratio 0.7 (0.8-1.8); Bilirubin, Total 0.3 mg/dL (0.1-1.0); Bun/Creatinine Ratio 14.4 (12.0-20.0); Calcium, Blood 9.5 mg/dL (8.5-10.1); Creatinine, Blood 1.88 mg/dL (0.40-1.00); Globulin, Blood 4.5 g/dL (2.2-4.0); Total Protein, Blood 7.7 g/dL (6.4-8.2)
[2023-08-02] MEDS ORDERED: Lidocaine 4% 1 Patch TOP ONE (22:55)
[2023-08-03] VITALS: BP 131/59
== END 2023-08-03 00:28 | disposition home or self-care (01) ==
LOC: ER 19:35
PROVIDERS: Emergency Medicine
DX: R07.89 Other chest pain (principal); E11.649 Type 2 diabetes mellitus with hypoglycemia without coma; Z87.891 Personal history of nicotine dependence; I10 Essential (primary) hypertension; E03.9 Hypothyroidism, unspecified; J44.9 Chronic obstructive pulmonary disease, unspecified; Z79.4 Long term (current) use of insulin; Z79.02 Long term (current) use of antithrombotics/antiplatelets; Z79.899 Other long term (current) drug therapy; Z79.2 Long term (current) use of antibiotics; Z88.1 Allergy status to other antibiotic agents; Z88.2 Allergy status to sulfonamides; Z88.8 Allergy status to other drugs, medicaments and biological substances; Z88.0 Allergy status to penicillin
CPT/HCPCS: 71101; 80053; 82947; 85025; 93005; 93010; 99284-25; A9270

== ENCOUNTER 2023-10-08 12:08 | Emergency (ER) | payer OTHER ==
[~2023-10-08] VITALS: Ht 165.1 cm; Wt 68.0 kg
[~2023-10-08 12:08] MED LIST changes: +Acetaminophen650 M1 PO; +CEFD300 PO; +LACTOBACILLUS1 EAC4 PO; +OZEMPIC0.25 MG/02 SQ
[2023-10-08 12:39] LABS: BASOPHILS ABSOLUTE AUTO 0.08 K/mm3 (0.00-0.23); BASOPHILS PERCENT AUTO 1 % (0-2); EOSINOPHILS ABSOLUTE AUTO 0.25 K/mm3 (0.00-0.68); EOSINOPHILS PERCENT AUTO 2 % (0-6); Hematocrit 33.3 % (33.0-51.0); Hemoglobin 10.4 g/dL (11.5-16.0); IMMATURE GRAN ABSOLUTE AUTO 0.05 K/mm3 (0.00-0.10); IMMATURE GRAN PERCENT AUTO 0 % (0-1); LYMPHOCYTES PERCENT AUTO 10 % (21-46); MONOCYTES ABSOLUTE AUTO 1.15 K/mm3 (0.16-1.47); MONOCYTES PERCENT AUTO 9 % (4-13); Mean Corpuscular HGB 24.1 pg (26.0-34.0); Mean Corpuscular HGB Conc 31.2 g/dL (31.5-36.5); Mean Corpuscular Volume 77 fL (80-100); Mean Platelet Volume 9.7 fL (9.1-12.4); NEUTROPHILS PERCENT AUTO 78 % (41-73); Platelet Count 304 K/mm3 (150-400); RDW Coefficient Variation 21.6 % (11.7-14.2); RDW Standard Deviation 59.3 fL (35.1-46.3); Red Blood Cell Count 4.31 M/mm3 (3.80-5.20); White Blood Cell Count 12.93 K/mm3 (4.00-11.30)
[2023-10-08 12:56] LABS: Albumin, Blood 3.2 g/dL (3.4-5.0); Albumin/Globulin Ratio 0.7 (0.8-1.8); Bilirubin, Total 0.4 mg/dL (0.1-1.0); Bun/Creatinine Ratio 20.8 (12.0-20.0); Calcium, Blood 9.3 mg/dL (8.5-10.1); Creatinine, Blood 1.78 mg/dL (0.40-1.00); Globulin, Blood 4.4 g/dL (2.2-4.0); Potassium, Blood 4.2 mmol/L (3.5-5.5); Total Protein, Blood 7.6 g/dL (6.4-8.2)
[2023-10-08 16:45] VITALS: BP 158/66
== END 2023-10-08 17:06 | disposition home or self-care (01) ==
LOC: ER 12:08
PROVIDERS: Emergency Medicine
DX: G45.9 Transient cerebral ischemic attack, unspecified (principal); E11.9 Type 2 diabetes mellitus without complications; Z88.0 Allergy status to penicillin; Z88.2 Allergy status to sulfonamides; Z88.1 Allergy status to other antibiotic agents; Z88.8 Allergy status to other drugs, medicaments and biological substances; Z79.4 Long term (current) use of insulin; Z79.899 Other long term (current) drug therapy
CPT/HCPCS: 70450; 80053; 85025; 93005; 93010; 99285-25

== ENCOUNTER 2023-10-09 22:00 | Observation (INO) | payer OTHER ==
[~2023-10-09] VITALS: Ht 165.1 cm; Wt 64.5 kg
[2023-10-09 23:43] LABS: BASOPHILS ABSOLUTE AUTO 0.09 K/mm3 (0.00-0.23); BASOPHILS PERCENT AUTO 1 % (0-2); EOSINOPHILS ABSOLUTE AUTO 0.56 K/mm3 (0.00-0.68); EOSINOPHILS PERCENT AUTO 6 % (0-6); Hematocrit 30.9 % (33.0-51.0); Hemoglobin 9.5 g/dL (11.5-16.0); IMMATURE GRAN ABSOLUTE AUTO 0.06 K/mm3 (0.00-0.10); IMMATURE GRAN PERCENT AUTO 1 % (0-1); LYMPHOCYTES ABSOLUTE AUTO 1.59 K/mm3 (0.84-5.20); LYMPHOCYTES PERCENT AUTO 17 % (21-46); MONOCYTES ABSOLUTE AUTO 1.01 K/mm3 (0.16-1.47); MONOCYTES PERCENT AUTO 11 % (4-13); Mean Corpuscular HGB 23.8 pg (26.0-34.0); Mean Corpuscular HGB Conc 30.7 g/dL (31.5-36.5); Mean Corpuscular Volume 77 fL (80-100); Mean Platelet Volume 9.5 fL (9.1-12.4); NEUTROPHILS ABSOLUTE AUTO 6.23 K/mm3 (1.96-9.15); NEUTROPHILS PERCENT AUTO 65 % (41-73); Platelet Count 288 K/mm3 (150-400); RDW Standard Deviation 59.5 fL (35.1-46.3); Red Blood Cell Count 3.99 M/mm3 (3.80-5.20); White Blood Cell Count 9.54 K/mm3 (4.00-11.30)
[2023-10-10 00:01] LABS: Albumin, Blood 2.7 g/dL (3.4-5.0); Albumin/Globulin Ratio 0.6 (0.8-1.8); Bilirubin, Total 0.3 mg/dL (0.1-1.0); Bun/Creatinine Ratio 20.9 (12.0-20.0); Calcium, Blood 8.1 mg/dL (8.5-10.1); Creatinine, Blood 2.01 mg/dL (0.40-1.00); Globulin, Blood 4.4 g/dL (2.2-4.0); Potassium, Blood 4.1 mmol/L (3.5-5.5); Total Protein, Blood 7.1 g/dL (6.4-8.2)
[2023-10-10] MEDS ORDERED: Ipratropium/Albuterol SulF 2.5-0.5MG/3 ML Amp INH PRN (01:00)
[2023-10-10] MEDS ORDERED: Ondansetron HCl 2 MG / ML 2ML Vial IV PRN (01:00)
[2023-10-10 02:09] LABS: Influenza A, PCR NEGATIVE (NEGATIVE); Influenza B, PCR NEGATIVE (NEGATIVE); Resp Syncytial Virus, PCR NEGATIVE (NEGATIVE); SARS-Cov-2 (COVID-19) PCR, MMC NEGATIVE (NEGATIVE)
[2023-10-10 03:02] VITALS: BP 119/57
[2023-10-10] MEDS ORDERED: CALCIUM CIT 311 EAC7 PO (04:47)
[2023-10-10] MEDS ORDERED: Azithromycin 500 MG in NS 250 ML IV SCH (06:00)
[2023-10-10] MEDS ORDERED: Acetaminophen 325 MG TABLET PO PRN (06:30)
--- NOTE | 2023-10-10 06:42 | NUR ---
Patient arrived to room from ED at 0345, transferred to bed via slide sheet with assistance. Patient demonstrating alert and oriented x2-3, VSS, tolerating 2L oxygen via nasal cannula, requesting to keep oxygen overnight. PIV to left wrist placed in ED, IV azithromycin given per eMAR, tolerated well. Purewick system in place for voids, specimen cup at bedside for sputum sample. Patient requested code status update from DNR as ordered to preferred Full Code, orders received and entered from hospitalist.
[2023-10-10] MEDS ORDERED: Levothyroxine Sodium 0.075 MG Tab PO SCH (07:00)
[2023-10-10] MEDS ORDERED: Insulin Human Lispro 100 Units/ML 3ML Syringe SC SCH (07:30)
[2023-10-10 08:03] VITALS: BP 126/51
[2023-10-10] MEDS ORDERED: Sennosides 8.6 MG Tab PO SCH (09:00)
[2023-10-10] MEDS ORDERED: Heparin Sodium,Porcine 5,000 UNIT/0.5 ML SDV SC SCH (09:00)
[2023-10-10] MEDS ORDERED: Gabapentin 300 MG Cap PO SCH (09:00)
[2023-10-10] MEDS ORDERED: AmLODIPine Besylate 5 MG Tab PO SCH (09:00)
[2023-10-10] MEDS ORDERED: Insulin Glargine-Yfgn 100 Unit/mL 3 ML SYR SC SCH (09:00)
[2023-10-10] MEDS ORDERED: Citalopram Hydrobromide 20 MG Tab PO SCH (09:00)
[2023-10-10] MEDS ORDERED: Clopidogrel Bisulfate 75 MG Tab PO SCH (09:00)
[2023-10-10 10:20] LABS: BASOPHILS ABSOLUTE AUTO 0.07 K/mm3 (0.00-0.23); BASOPHILS PERCENT AUTO 1 % (0-2); EOSINOPHILS ABSOLUTE AUTO 0.69 K/mm3 (0.00-0.68); EOSINOPHILS PERCENT AUTO 9 % (0-6); Hemoglobin 10.3 g/dL (11.5-16.0); IMMATURE GRAN ABSOLUTE AUTO 0.04 K/mm3 (0.00-0.10); IMMATURE GRAN PERCENT AUTO 1 % (0-1); LYMPHOCYTES ABSOLUTE AUTO 1.48 K/mm3 (0.84-5.20); LYMPHOCYTES PERCENT AUTO 19 % (21-46); MONOCYTES ABSOLUTE AUTO 0.92 K/mm3 (0.16-1.47); MONOCYTES PERCENT AUTO 12 % (4-13); Mean Corpuscular HGB 23.9 pg (26.0-34.0); Mean Corpuscular HGB Conc 31.2 g/dL (31.5-36.5); Mean Corpuscular Volume 77 fL (80-100); Mean Platelet Volume 9.5 fL (9.1-12.4); NEUTROPHILS ABSOLUTE AUTO 4.53 K/mm3 (1.96-9.15); NEUTROPHILS PERCENT AUTO 59 % (41-73); Platelet Count 281 K/mm3 (150-400); RDW Coefficient Variation 20.8 % (11.7-14.2); RDW Standard Deviation 57.6 fL (35.1-46.3); Red Blood Cell Count 4.31 M/mm3 (3.80-5.20); White Blood Cell Count 7.73 K/mm3 (4.00-11.30)
[2023-10-10 10:58] LABS: Albumin, Blood 2.8 g/dL (3.4-5.0); Albumin/Globulin Ratio 0.7 (0.8-1.8); Bilirubin, Total 0.3 mg/dL (0.1-1.0); Bun/Creatinine Ratio 20.2 (12.0-20.0); Calcium, Blood 7.8 mg/dL (8.5-10.1); Creatinine, Blood 1.78 mg/dL (0.40-1.00); Globulin, Blood 4.2 g/dL (2.2-4.0); Potassium, Blood 4.1 mmol/L (3.5-5.5)
[2023-10-10] MEDS ORDERED: AZIT250 PO (12:54)
--- NOTE | 2023-10-10 14:51 | NUR ---
DISCHARGE SUMMARY: PT DISCHARGED BACK TO [facility] VIA WHEELCHAIR TRANSPORT. PT ASSISTED WITH GETTING DRESSED. PT BELONGINGS PACKED AND SENT WITH HER. PT REPORTED SHE HAD 2 PHONES, A RED ONE AND A BLUE ONE. BLUE PHONE WAS FOUND IN THE ROOM BUT RED PHONE WAS MISSING. PT ADAMENT SHE HAD THE PHONE IN THE ROOM WITH HER. PHONE WAS NOT FOUND AT THE [facility] DESK CHARGING AND WAS NOT IN ANY LOCKED DRAWERS. PT ADVISED TO CALL BACK TO HOSPITAL IF PHONE NOT FOUND AT HOME AND SPEAK TO PT ADVOCATE OR LOST AND FOUND. PT V/U.
--- NOTE | 2023-10-12 03:59 | NUR ---
REVIEWED PT'S INFORMATION FOR SCRIPT THAT WAS NOT FILLED AND NEEDED TO BE REFAXED TO PT'S PHARMACY TO GET FILLED.
== END 2023-10-10 14:37 | disposition hospice, inpatient (51) ==
LOC: ER 22:00 → MEDS 22:01 → ENPENDDIS 10-10 12:00 → MEDS 10-10 14:37
PROVIDERS: Emergency Medicine; ADMIT Internal Medicine
DX: J96.01 Acute respiratory failure with hypoxia (principal); J44.9 Chronic obstructive pulmonary disease, unspecified; E11.9 Type 2 diabetes mellitus without complications; E03.9 Hypothyroidism, unspecified; F32.9 Major depressive disorder, single episode, unspecified; I10 Essential (primary) hypertension; I21.4 Non-ST elevation (NSTEMI) myocardial infarction; N17.9 Acute kidney failure, unspecified; J20.9 Acute bronchitis, unspecified; M19.90 Unspecified osteoarthritis, unspecified site; Z66 Do not resuscitate; Z79.4 Long term (current) use of insulin; Z79.899 Other long term (current) drug therapy; Z86.73 Personal history of transient ischemic attack (TIA), and cerebral infarction without residual deficits; Z87.891 Personal history of nicotine dependence; Z88.0 Allergy status to penicillin; Z88.2 Allergy status to sulfonamides; Z88.8 Allergy status to other drugs, medicaments and biological substances
CPT/HCPCS: 0241U; 36415; 71046; 80053; 82947; 83605; 83880; 84145; 84484; 85025; 92610; 93005; 93010; 94761; 96372; 96374; 99285-25; A9270; G0378; J0456; J1644; J1815; J7050

== ENCOUNTER 2024-01-27 13:24 | Inpatient (IN) | payer OTHER ==
[~2024-01-27] VITALS: Ht 165.1 cm; Wt 68.5 kg
[~2024-01-27 13:24] MED LIST changes: +AZIT250 PO; +CALCIUM CIT 311 EAC7 PO
[2024-01-27 14:40] LABS: Bun/Creatinine Ratio 15.6 (12.0-20.0); Creatinine, Blood 2.12 mg/dL (0.40-1.00); Potassium, Blood 4.6 mmol/L (3.5-5.5)
[2024-01-27] MEDS ORDERED: AMLO10 PO (14:41)
[2024-01-27] MEDS ORDERED: LOSA50 PO (14:41)
[2024-01-27] MEDS ORDERED: GABA300 PO (14:41)
[2024-01-27] MEDS ORDERED: CLOP75 PO (14:41)
[2024-01-27] MEDS ORDERED: ESCI20 PO (14:41)
[2024-01-27] MEDS ORDERED: LEVSOD75 PO (14:41)
[2024-01-27] MEDS ORDERED: SEMGLEE (Y100 UNIT/2 SQ (14:42)
[2024-01-27] MEDS ORDERED: INSULIN AS100 UNIT/8 SQ (14:42)
[2024-01-27 15:06] LABS: BASOPHILS PERCENT AUTO 1 % (0-2); EOSINOPHILS ABSOLUTE AUTO 0.63 K/mm3 (0.00-0.68); EOSINOPHILS PERCENT AUTO 5 % (0-6); Hematocrit 38.5 % (33.0-51.0); Hemoglobin 12.8 g/dL (11.5-16.0); IMMATURE GRAN ABSOLUTE AUTO 0.07 K/mm3 (0.00-0.10); IMMATURE GRAN PERCENT AUTO 1 % (0-1); LYMPHOCYTES ABSOLUTE AUTO 1.57 K/mm3 (0.84-5.20); LYMPHOCYTES PERCENT AUTO 12 % (21-46); MONOCYTES ABSOLUTE AUTO 1.16 K/mm3 (0.16-1.47); MONOCYTES PERCENT AUTO 9 % (4-13); Mean Corpuscular HGB 27.8 pg (26.0-34.0); Mean Corpuscular HGB Conc 33.2 g/dL (31.5-36.5); Mean Corpuscular Volume 84 fL (80-100); Mean Platelet Volume 9.6 fL (9.1-12.4); NEUTROPHILS ABSOLUTE AUTO 9.48 K/mm3 (1.96-9.15); NEUTROPHILS PERCENT AUTO 73 % (41-73); Platelet Count 306 K/mm3 (150-400); RDW Standard Deviation 39.1 fL (35.1-46.3); Red Blood Cell Count 4.61 M/mm3 (3.80-5.20); White Blood Cell Count 13.01 K/mm3 (4.00-11.30)
[2024-01-27 15:26] LABS: Influenza A, PCR NEGATIVE (NEGATIVE); Influenza B, PCR NEGATIVE (NEGATIVE); Resp Syncytial Virus, PCR NEGATIVE (NEGATIVE); SARS-Cov-2 (COVID-19) PCR, MMC NEGATIVE (NEGATIVE)
[2024-01-27 16:52] LABS: Anti-Xa UFH, PHA Monitoring <0.10 IU/mL; International Normalized Ratio 0.99; Prothrombin Time Results 10.6 Sec (9.7-11.5)
[2024-01-27] MEDS ORDERED: Dose Adjust by Pharmacy XX STA (17:01)
[2024-01-27] MEDS ORDERED: Heparin Sodium,Porcine/0.5 NS 500 ML IV SCH (17:05)
[2024-01-27] MEDS ORDERED: Heparin Sodium 5000 Units/ML 1ML MDV IV ONE (17:05)
[2024-01-27] MEDS ORDERED: Acetaminophen 325 MG TABLET PO PRN (18:25)
[2024-01-27] MEDS ORDERED: NS 1,000 ML IV SCH (18:25)
[2024-01-27] MEDS ORDERED: Ondansetron HCl 2 MG / ML 2ML Vial IV PRN (18:30)
[2024-01-27] MEDS ORDERED: NS 1,000 ML IV ONE (19:00)
[2024-01-27] MEDS ORDERED: Azithromycin 500 MG in NS 250 ML IV SCH (19:00)
[2024-01-27] MEDS ORDERED: CefTRIAXone Sodium 1,000 MG in NS 100 ML IV SCH (19:00)
[2024-01-27] MEDS ORDERED: PIOG15 PO (20:31)
[2024-01-27] MEDS ORDERED: Insulin Glargine-Yfgn 100 Unit/mL 3 ML SYR SC SCH (21:00)
[2024-01-27] MEDS ORDERED: Lactobacil 2-S.Thermo-Bifido 1 1 Cap PO SCH (21:00)
[2024-01-27] MEDS ORDERED: Gabapentin 300 MG Cap PO SCH (21:00)
[2024-01-27 21:39] VITALS: BP 157/71
[2024-01-28] MEDS ORDERED: Dose Adjust by Pharmacy XX STA (01:12)
[2024-01-28 04:55] VITALS: BP 146/63
--- NOTE | 2024-01-28 05:39 | NUR ---
SHIFT SUMMARY NOC PT A/O X 4. PLEASANT AND COOPERATIVE WITH CARE. PT HAS RESIDUAL R SIDED DEFICTS/WEAKNESS FROM PRIOR CVA'S. PT ON HEPARIN DRIP DUE TO ELEVATED D DIMER AND SUSPICION OF POSSIBLE PE. IMAGING NEGATIVE FOR PE AT THIS TIME. PT IS ABLE TO ANSWER QUESTIONS YES OR NO, AND SOMETIMES CAN SPEAK IN FULL SENTENCES. PT HAS PRODUCTIVE COUGH WITH WHITE THICK SPUTUM. PT HAS PUREWICK IN PLACE DUE TO INCONTINENCE AND BEING BEDBOUND/WHEELCHAIR USE BASELINE. ON O2 1.5L/NC FOR COMFORT, PT SPO2 IS >94% ON RA. PT IS RESIDENT AT [facility], BUT PT SISTER STATES THAT PT WILL NOT BE RETURNING THERE DUE TO POOR PT CARE, SHE IS LOOKING FOR ALTERNATIVE CARE FACILITIES AND IS REQUESTING [employer] SOFTWARE DEVELOPER FOR HELP IN FINDING ALTERANATE ACCOMADATIONS. PT HAS STAGE 1 PI ON COCCYX WITH BARRIER CREAM AND MEPILEX IN PLACE C/D/I. NS INFUSING @ 100 ML/HR. HS CBG 137 20 UNITS GLARGINE GIVEN WITH SNACK. PT CURRENTLY RESTING WITH BED IN LOWEST POSITION, AND CALL LIGHT WITHIN REACH.
[2024-01-28] MEDS ORDERED: Levothyroxine Sodium 0.075 MG Tab PO SCH (06:00)
[2024-01-28] MEDS ORDERED: Insulin Human Lispro 100 Units/ML 3ML Syringe SC SCH (07:30)
[2024-01-28 07:57] VITALS: BP 167/63
[2024-01-28 07:59] LABS: BASOPHILS ABSOLUTE AUTO 0.07 K/mm3 (0.00-0.23); BASOPHILS PERCENT AUTO 1 % (0-2); EOSINOPHILS PERCENT AUTO 6 % (0-6); Hematocrit 32.1 % (33.0-51.0); Hemoglobin 10.6 g/dL (11.5-16.0); IMMATURE GRAN ABSOLUTE AUTO 0.03 K/mm3 (0.00-0.10); IMMATURE GRAN PERCENT AUTO 1 % (0-1); LYMPHOCYTES ABSOLUTE AUTO 1.61 K/mm3 (0.84-5.20); LYMPHOCYTES PERCENT AUTO 24 % (21-46); MONOCYTES ABSOLUTE AUTO 0.99 K/mm3 (0.16-1.47); MONOCYTES PERCENT AUTO 15 % (4-13); Mean Corpuscular HGB 27.7 pg (26.0-34.0); Mean Corpuscular Volume 84 fL (80-100); Mean Platelet Volume 9.4 fL (9.1-12.4); NEUTROPHILS ABSOLUTE AUTO 3.55 K/mm3 (1.96-9.15); NEUTROPHILS PERCENT AUTO 53 % (41-73); Platelet Count 236 K/mm3 (150-400); RDW Coefficient Variation 12.9 % (11.7-14.2); RDW Standard Deviation 39.4 fL (35.1-46.3); Red Blood Cell Count 3.83 M/mm3 (3.80-5.20); White Blood Cell Count 6.65 K/mm3 (4.00-11.30)
[2024-01-28 08:46] LABS: Bun/Creatinine Ratio 16.1 (12.0-20.0); Calcium, Blood 8.5 mg/dL (8.5-10.1); Creatinine, Blood 1.74 mg/dL (0.40-1.00); Magnesium, Blood 1.8 mg/dL (1.6-2.4); Potassium, Blood 3.9 mmol/L (3.5-5.5)
[2024-01-28] MEDS ORDERED: Citalopram Hydrobromide 20 MG Tab PO SCH (09:00)
[2024-01-28] MEDS ORDERED: Losartan Potassium 50 MG Tab PO SCH (09:00)
[2024-01-28] MEDS ORDERED: AmLODIPine Besylate 5 MG Tab PO SCH (09:00)
[2024-01-28] MEDS ORDERED: Enoxaparin 40 MG/0.4 ML SYR SC SCH (09:00)
[2024-01-28] MEDS ORDERED: Clopidogrel Bisulfate 75 MG Tab PO SCH (09:00)
[2024-01-28 15:44] VITALS: BP 145/112
--- NOTE | 2024-01-28 17:53 | NUR ---
SHIFT SUMMARY PT A&OX2-3, VSS, TOLERATING PO, VOIDING, AND DENIED PAIN. PT USED 1L O2 NC INTERMIT T/O SHIFT FOR COMFORT AND DENIED SOB. PT WORKED W/ PHYSICAL THERAPY THIS SHIFT AND WAS UNABLE TO AMB HERSELF INTO THE CHAIR W/ ASSIST. HEP DRIP D/C. NO OTHER ACUTE CHANGES. CALL LIGHT WITHIN REACH AND PT ABLE TO MAKE NEEDS KNOWN.
[2024-01-28 19:51] VITALS: BP 141/56
[2024-01-28] MEDS ORDERED: Heparin Sodium,Porcine 5,000 UNIT/0.5 ML SDV SC SCH (21:00)
[2024-01-28] MEDS ORDERED: Famotidine 20 MG Tab PO SCH (21:00)
[2024-01-29 03:56] VITALS: BP 125/56
[2024-01-29 05:35] LABS: BASOPHILS ABSOLUTE AUTO 0.07 K/mm3 (0.00-0.23); BASOPHILS PERCENT AUTO 1 % (0-2); EOSINOPHILS PERCENT AUTO 9 % (0-6); Hematocrit 32.9 % (33.0-51.0); Hemoglobin 10.6 g/dL (11.5-16.0); IMMATURE GRAN ABSOLUTE AUTO 0.01 K/mm3 (0.00-0.10); IMMATURE GRAN PERCENT AUTO 0 % (0-1); LYMPHOCYTES ABSOLUTE AUTO 1.82 K/mm3 (0.84-5.20); LYMPHOCYTES PERCENT AUTO 32 % (21-46); MONOCYTES ABSOLUTE AUTO 0.86 K/mm3 (0.16-1.47); MONOCYTES PERCENT AUTO 15 % (4-13); Mean Corpuscular HGB 27.5 pg (26.0-34.0); Mean Corpuscular HGB Conc 32.2 g/dL (31.5-36.5); Mean Corpuscular Volume 86 fL (80-100); Mean Platelet Volume 9.8 fL (9.1-12.4); NEUTROPHILS ABSOLUTE AUTO 2.43 K/mm3 (1.96-9.15); NEUTROPHILS PERCENT AUTO 43 % (41-73); Platelet Count 248 K/mm3 (150-400); RDW Coefficient Variation 12.8 % (11.7-14.2); RDW Standard Deviation 39.5 fL (35.1-46.3); Red Blood Cell Count 3.85 M/mm3 (3.80-5.20); White Blood Cell Count 5.69 K/mm3 (4.00-11.30)
[2024-01-29 05:54] LABS: Alanine Aminotransfer (ALT/SGP 14 U/L (12-78); Albumin, Blood 2.6 g/dL (3.4-5.0); Albumin/Globulin Ratio 0.7 (0.8-1.8); Alk Phos 64 U/L (50-136); Anion Gap 8 mmol/L (3-11); Aspartate Aminotrans (AST/SGOT 14 U/L (12-37); Bilirubin, Total 0.1 mg/dL (0.1-1.0); Blood Urea Nitrogen 25 mg/dL (8-24); Bun/Creatinine Ratio 13.1 (12.0-20.0); CHOL/HDL RATIO 3.9; CO2, Blood 26 mmol/L (21-32); Chloride, Blood 112 mmol/L (98-108); Cholesterol 220 mg/dL (50-200); Creatinine, Blood 1.91 mg/dL (0.40-1.00); Globulin, Blood 3.7 g/dL (2.2-4.0); Glomerular Filtration Rate 28 (60-); Glucose, Blood 75 mg/dL (70-99); HDL Cholesterol 57 mg/dL (>39); LDL/HDL RATIO 2.6; Low Density Lipoprotein Chol 148 mg/dL (0-110); Potassium, Blood 3.8 mmol/L (3.5-5.5); Sodium, Blood 142 mmol/L (136-145); Total Protein, Blood 6.3 g/dL (6.4-8.2); Triglycerides 75 mg/dL (30-160); Very Low Density Lipoprot Chol 15 mg/dL (6-32)
[2024-01-29 07:39] VITALS: BP 158/84
[2024-01-29] MEDS ORDERED: Albuterol 2.5 MG/3 ML VIAL INH PRN (10:35)
[2024-01-29] MEDS ORDERED: Ipratropium/Albuterol SulF 2.5-0.5MG/3 ML Amp INH SCH (11:25)
[2024-01-29 15:40] VITALS: BP 152/52
--- NOTE | 2024-01-29 16:03 | NUR ---
PT SITTING UP IN BED WATCHING TV, PT HAS BEEN PLEASANT AND COOPERATIVE WITH CARE T/O THE DAY, NOW ON ROOM AIR, PT DENIES SOB, VSS, WILL CONT TO MONITOR
[2024-01-29] MEDS ORDERED: Pioglitazone HCl 15 MG Tab PO SCH (18:00)
--- NOTE | 2024-01-29 19:23 | NUR ---
REPORT RECIEVED FROM BONITA AT 1621, THIS RN TO TAKE OVER CARE. PT A/O AND ABLE TO EXPRESS NEEDS. NO REPORT OF CHES PAIN/PRESSURE SINCE TAKING OVER CARE. PT BLOOD SUGARS ELEVATED, NOTIFIED AND NEW ORDERS PLACE. NO OTHER ACUTE EVENTS SINCE TAKING OVER IN CARE.
[2024-01-29 19:34] VITALS: BP 124/48
[2024-01-29] MEDS ORDERED: Insulin Human Lispro 100 Units/ML 3ML Syringe SC SCH (21:00)
[2024-01-29] MEDS ORDERED: Atorvastatin 40 MG Tab PO SCH ×2 (21:00)
[2024-01-29] MEDS ORDERED: Insulin Glargine-Yfgn 100 Unit/mL 3 ML SYR SC SCH (21:00)
[2024-01-30 03:56] VITALS: BP 147/54
[2024-01-30 05:08] LABS: BASOPHILS ABSOLUTE AUTO 0.06 K/mm3 (0.00-0.23); BASOPHILS PERCENT AUTO 1 % (0-2); EOSINOPHILS ABSOLUTE AUTO 0.18 K/mm3 (0.00-0.68); EOSINOPHILS PERCENT AUTO 3 % (0-6); Hematocrit 30.4 % (33.0-51.0); Hemoglobin 9.9 g/dL (11.5-16.0); IMMATURE GRAN ABSOLUTE AUTO 0.04 K/mm3 (0.00-0.10); IMMATURE GRAN PERCENT AUTO 1 % (0-1); LYMPHOCYTES ABSOLUTE AUTO 1.73 K/mm3 (0.84-5.20); LYMPHOCYTES PERCENT AUTO 28 % (21-46); MONOCYTES ABSOLUTE AUTO 0.81 K/mm3 (0.16-1.47); MONOCYTES PERCENT AUTO 13 % (4-13); Mean Corpuscular HGB Conc 32.6 g/dL (31.5-36.5); Mean Corpuscular Volume 86 fL (80-100); Mean Platelet Volume 9.6 fL (9.1-12.4); NEUTROPHILS ABSOLUTE AUTO 3.41 K/mm3 (1.96-9.15); NEUTROPHILS PERCENT AUTO 55 % (41-73); Platelet Count 245 K/mm3 (150-400); Red Blood Cell Count 3.53 M/mm3 (3.80-5.20); White Blood Cell Count 6.23 K/mm3 (4.00-11.30)
[2024-01-30 05:43] LABS: Albumin, Blood 2.5 g/dL (3.4-5.0); Albumin/Globulin Ratio 0.7 (0.8-1.8); Bilirubin, Total 0.1 mg/dL (0.1-1.0); Bun/Creatinine Ratio 13.2 (12.0-20.0); Calcium, Blood 7.9 mg/dL (8.5-10.1); Creatinine, Blood 1.89 mg/dL (0.40-1.00); Globulin, Blood 3.5 g/dL (2.2-4.0); Potassium, Blood 3.8 mmol/L (3.5-5.5)
[2024-01-30 07:09] VITALS: BP 116/48
--- NOTE | 2024-01-30 09:00 | NUR ---
pt sleeping hard this am, wakes easily, a/ox4, pleasant and cooperative with care, follows commands, states she's doing good, feeling better and slept well last night, lungs are clear in upper montero, course in bases, resp even and unlabored, on r/a, no cough noted this am but reports she was bringing up yellow sputum yesterday, hrr, no edema noted, heel protectors in place, btx4, abd flat soft nontender, voids via purwick at this time, skin has pink bottom no open, moves upper ext well, is wheelchair bound, and a lift, wu, call light in reach.
[2024-01-30 16:00] VITALS: BP 139/58
[2024-01-30 19:19] VITALS: BP 161/58
--- NOTE | 2024-01-30 19:30 | NUR ---
RN ASSUMED CARE FROM NURSE DEAN AT 1300 TODAY. RECA IS SITTING AT THE BEDSIDE IN A RECLINER. SHE IS WEARING OXYGEN 2LPM VIA NC. SHE HAS RESIDUAL RIGHT SIDED WEAKNESS FROM A PAST CVA. SHE WORKED WITH PT TWICE THIS SHIFT. RESIDENT OF [facility]. LIFT FOR TRANSFERS. ABLE TO VERBALIZE HER NEEDS, AND USE CALL LIGHT APPROPRIATELY. CONT/INCONT IN BRIEFS.
[2024-01-31 02:35] VITALS: BP 145/53
--- NOTE | 2024-01-31 04:26 | NUR ---
SHIFT SUMMARY: PT IS A 73 YO FULL CODE WOMAN. PT WAS ADMITTED FOR COMMUNITY AQUIRED PNEUMONIA AND CURRENTLY ON 2L NC O2. PT HAS RIGHT SIDED WEAKNESS FROM PREV CVA AND IS A LIFT PT TO W/C. PT WILL NOT CALL WHEN SHE HAS A BM OR INCONTINENT. PT HAD A LARGE BM TONIGHT. PT IS AN AC/HS BLOODSUGARS AND TOLDERATES CHANGES AND REPOSITIONING OKAY. PT CAN BE VERY PATICULAR AND SOMETIMES CRANKY AT TIMES BUT IS A+OX4. PT RECIEVED TWO IV ANTIBIOTICS (see emar) AT THE BEGINNING OF SHIFT, PTS SON WAS ASLEEP IN RECLINER AND WAS ASKED TO LEAVE AFTER VISITING HOURS.PT IS A CURRENT RESIDENT AT [facility]. PT IS CURRENTLY NOT ON TELE.
[2024-01-31 07:28] VITALS: BP 150/61
--- NOTE | 2024-01-31 07:32 | NUR ---
THIS RN REVIEWED AND AGREES WITH ORIENTEE/CEMENT FINISHER APPRENTICE ASSESSMENTS AND SHIFT NOTE.
--- NOTE | 2024-01-31 07:38 | NUR ---
MD CALL BLOOD GLUCOSE 55. PT SLIGHTLY CLAMMY. GIVEN APPLE JUICE AND SNACK AND PLAN TO RECHECK. SHE SAID THAT IT GOES LOW MOST EVERY DAY AT HOME. DR COMBS NOTIFIED. TELEPHONE ORDER TO HOLD AM GLARGINE AND ACTOS.
[2024-01-31] MEDS ORDERED: NS 250 ML IV PRN (10:15)
[2024-01-31 16:04] VITALS: BP 141/56
--- NOTE | 2024-01-31 17:56 | NUR ---
SHIFT SUMMARY MS HUNG HAD BLOOD GLUCOSE OF 55 THIS MORNING, SKIN CLAMMY, ORIENTATED. BLOOD GLUCOSE HAS SINCE BEEN 199-238 REQUIRING COVERAGE FOR LUNCH AND SUPPER BUT AM GLARGINE AND ACTOS WERE HELD. SHE SAID SHE NORMALLY RUNS LOW IN THE 50S AT HOME IN THE MORNINGS AND EATS A SNACK AT HOME TO RESOLVE IT. UP TO CHAIR AND TO BSC, CONTINENT OF LARGE BROWN STOOL. 2 PERSON ASSIST WITH SIT TO STAND LIFT. NO C/O ANY PAIN TODAY. NO CONFUSION NOTED. WEANED FROM 2L OXYGEN NC THIS AM TO ROOM AIR, SATS HIGH 90S AND MS HUNG HAS BEEN COMFORTABLE WITHOUT THE OXYGEN. ENCOURAGED TO TURN, COUGH AND DEEP BREATH REGULARLY. BED LOW, CALL LIGHT IN REACH.
[2024-01-31 19:56] VITALS: BP 148/59
[2024-01-31] MEDS ORDERED: Insulin Glargine-Yfgn 100 Unit/mL 3 ML SYR SC ONE (21:10)
[2024-02-01 02:09] VITALS: BP 148/53
--- NOTE | 2024-02-01 02:58 | NUR ---
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 PT IS INCONTINENT TO BOWEL AND STOOL MOST OF THE TIME BUT WILL SOMETIMES ASK TO USE A BED CONRAD FOR BM. PT WILL NOT CALL WHEN SHE NEEDS CHANGED OR REPOSITIONED. PTS BS WAS 174 AT BEDTIME AND SINCE HER BS DROPPED TO 55 THE PREVIOUS MORNING I CALLED DOCTOR TO SEE IF WE COULD DECREASE THE GLARGINE TO PREVENT DROPPING HER BS TOO MUCH AGAIN IN THE MORNING. DOCTOR GAVE ME A ONE TIME ORDER FOR 15 UNITS OF GLARGINE INSTEAD OF THE USUAL PRESCRIBED 30 UNITS AT BEDTIME.PTS DOCTOR IS GOING TO REV HER INSULIN MGMT AND MAKE ADJUSTMENTS NEEDED. PT'S IV HAD A RED STREAK ON HER LEFT ARM AND WAS BOTHERING THE PT SO BETH FOWLER RN PLACED A NEW IV IN HER RIGHT WRIST THAT HAS WORKED AND FLUSHED GREAT.PT'S HOMELESS SON CAME AGAIN TO SEE HIS MOM AND SLEEP ON THE RECLINER AND WAS ASKED TO LEAVE BECAUSE VISITING HOURS WERE OVER.PT HAS RIGHT SIDED WEAKNESS FROM A PREV CVA AND CAN BE SILETZ TRIBE. PT IS BEING FLOATED ON PILLOWS AND HAS HEEL PROTECTORS ON. CALL LIGHT WITHIN REACH
[2024-02-01 07:31] VITALS: BP 171/72
--- NOTE | 2024-02-01 08:10 | NUR ---
MD CALL DR COMBS CALLED REGARDING ACTOS AND GLARGINE DOSES THIS AM. BLOOD GLUCOSE 123 AND PER REPORT GLARGINE DOSE WAS DECREASED LAST NIGHT A ONE TIME ORDER. TELEPHONE ORDER FROM DR COMBS TO HOLD AM ACTOS AND GIVE 15UNITS OF GLARGINE THIS MORNING.
[2024-02-01] MEDS ORDERED: Insulin Glargine-Yfgn 100 Unit/mL 3 ML SYR SC SCH (09:00)
[2024-02-01] MEDS ORDERED: HydrALAZINE HCl 20 MG / ML 1ML Vial IV PRN (13:20)
[2024-02-01 14:21] VITALS: BP 144/55
--- NOTE | 2024-02-01 14:49 | NUR ---
MS HUNG WAS INSTRUCTED IN USE OF INCENTIVE SPIROMETRY BUT REPEATEDLY DOES IT WITH POOR TECHNIQUE DESPITE REINFORCEMENT. SHE HAS BEEN COUGHING UP MORE THICK GREEN SPUTUM TODAY AND HAS A STRONG COUGH WITH MOVEMENT IN THE CHAIR AND BED BUT IS NOT GOOD AT THE I.S. I WILL CONTINUE TO REEDUCATE BUT IN THE MEANTIME I GAVE HER A FLUTTER VALVE WHICH SHE USES WITH MUCH BETTER TECHNIQUE.
[2024-02-01] MEDS ORDERED: Insulin Human Lispro 100 Units/ML 3ML Syringe SC SCH (16:30)
--- NOTE | 2024-02-01 16:52 | NUR ---
SHIFT SUMMARY MS HUNG REPORTS THAT SHE FEELS SOME IMPROVEMENT TODAY. UP TO CHAIR WITH SIT TO STAND LIFT FOR BREAKFAST AND LUNCH AND GETTING UP AGAIN CURRENTLY FOR SUPPER. SHE HAS A STRONG COUGH AND HAS EXPECTORATED THICK GREEN SPUTUM. SHE HAS NOT HAD GOOD TECHNIQUE AT THE INCENTIVE SPIROMETER BUT IS DOING BETTER AT THE FLUTTER VALVE. ON ROOM AIR ALL DAY. BLOOD SUGARS 123 BEFORE BREAKFAST AND 179 BEFORE LUNCH. MS HUNG SAID THAT SHE IS VERY INTERESTED IN GOING TO REHAB WHEN SHE IS DISCHARGED FROM [facility]. IN CHAIR NOW, CALL LIGHT IN REACH.
[2024-02-01 19:13] VITALS: BP 161/65
[2024-02-02 02:58] VITALS: BP 132/52
[2024-02-02 05:21] LABS: BASOPHILS ABSOLUTE AUTO 0.07 K/mm3 (0.00-0.23); BASOPHILS PERCENT AUTO 1 % (0-2); EOSINOPHILS ABSOLUTE AUTO 0.69 K/mm3 (0.00-0.68); EOSINOPHILS PERCENT AUTO 8 % (0-6); Hematocrit 30.2 % (33.0-51.0); Hemoglobin 9.9 g/dL (11.5-16.0); IMMATURE GRAN ABSOLUTE AUTO 0.08 K/mm3 (0.00-0.10); IMMATURE GRAN PERCENT AUTO 1 % (0-1); LYMPHOCYTES ABSOLUTE AUTO 2.25 K/mm3 (0.84-5.20); LYMPHOCYTES PERCENT AUTO 25 % (21-46); MONOCYTES ABSOLUTE AUTO 0.93 K/mm3 (0.16-1.47); MONOCYTES PERCENT AUTO 10 % (4-13); Mean Corpuscular HGB 27.6 pg (26.0-34.0); Mean Corpuscular HGB Conc 32.8 g/dL (31.5-36.5); Mean Corpuscular Volume 84 fL (80-100); Mean Platelet Volume 9.7 fL (9.1-12.4); NEUTROPHILS PERCENT AUTO 55 % (41-73); Platelet Count 276 K/mm3 (150-400); RDW Coefficient Variation 13.5 % (11.7-14.2); RDW Standard Deviation 41.4 fL (35.1-46.3); Red Blood Cell Count 3.59 M/mm3 (3.80-5.20); White Blood Cell Count 8.92 K/mm3 (4.00-11.30)
[2024-02-02 05:42] LABS: Albumin, Blood 2.7 g/dL (3.4-5.0); Albumin/Globulin Ratio 0.8 (0.8-1.8); Bilirubin, Total 0.2 mg/dL (0.1-1.0); Bun/Creatinine Ratio 16.3 (12.0-20.0); Calcium, Blood 8.5 mg/dL (8.5-10.1); Creatinine, Blood 1.9 mg/dL (0.40-1.00); Globulin, Blood 3.6 g/dL (2.2-4.0); Potassium, Blood 4.1 mmol/L (3.5-5.5); Total Protein, Blood 6.3 g/dL (6.4-8.2)
[2024-02-02 07:05] VITALS: BP 140/63
[2024-02-02 14:53] VITALS: BP 138/55
--- NOTE | 2024-02-02 18:01 | NUR ---
PATIENT A&OX4, ANSWERED ALL QUESTIONS APPROPRIATLY. RT ARM, BOTH LEGS WEEK FROM PRIOR CVA. PT ABLE TO TURN IN BED, NOT CALLING WHEN SOILED, FREQUENT BREIF CHECKS FOR INCONTINENCE OF BOWEL AND BLADDER, EDUCATION PROVIDED TO CALL. WORKED WITH PT/OT, WAITING FOR SNF PLACEMENT. BLOOD SUGAR THIS MORNING 48, JUICE GIVEN, UP TO 68, PROVIDER NOTIFIED, INSULIN DOSES ADJUSTED. PT RESTING COMFORTABLY, CALL LIGHT IN REACH.
[2024-02-02 20:01] VITALS: BP 121/63
[2024-02-02] MEDS ORDERED: Insulin Glargine-Yfgn 100 Unit/mL 3 ML SYR SC SCH (21:00)
[2024-02-03 02:53] VITALS: BP 157/55
[2024-02-03 05:21] LABS: BASOPHILS ABSOLUTE AUTO 0.08 K/mm3 (0.00-0.23); BASOPHILS PERCENT AUTO 1 % (0-2); EOSINOPHILS PERCENT AUTO 7 % (0-6); Hematocrit 32.8 % (33.0-51.0); Hemoglobin 10.7 g/dL (11.5-16.0); IMMATURE GRAN ABSOLUTE AUTO 0.06 K/mm3 (0.00-0.10); IMMATURE GRAN PERCENT AUTO 1 % (0-1); LYMPHOCYTES PERCENT AUTO 22 % (21-46); MONOCYTES ABSOLUTE AUTO 0.96 K/mm3 (0.16-1.47); MONOCYTES PERCENT AUTO 10 % (4-13); Mean Corpuscular HGB 27.5 pg (26.0-34.0); Mean Corpuscular HGB Conc 32.6 g/dL (31.5-36.5); Mean Corpuscular Volume 84 fL (80-100); Mean Platelet Volume 9.8 fL (9.1-12.4); NEUTROPHILS ABSOLUTE AUTO 5.96 K/mm3 (1.96-9.15); NEUTROPHILS PERCENT AUTO 60 % (41-73); Platelet Count 294 K/mm3 (150-400); RDW Coefficient Variation 13.6 % (11.7-14.2); RDW Standard Deviation 41.7 fL (35.1-46.3); Red Blood Cell Count 3.89 M/mm3 (3.80-5.20); White Blood Cell Count 9.96 K/mm3 (4.00-11.30)
--- NOTE | 2024-02-03 05:39 | NUR ---
SUPERVISOR HANGING AND TRIMMING SUMMARY NO ACUTE CHANGES. PT REQUIRING Q2 CHANGES AND REPOSITIONING. PT INCONTINIENT OF BOWEL AND BLADDER. PT WILL NOT ALERT STAFF AFTER EPISODES OF INCONTINENCE. PT INQUIRY/ASSESSMENT REQUIRED. PT NEEDS ENCOURAGEMENT TO ALLOW STAFF TO TURN/CHANGE HER IN THE MIDDLE OF THE NIGHT. PT IS OTHERWISE PLEASANT/COOPERATIVE WITH CARE. AT 0300 BRIEF CHANGE--PT WAS FOUND TO BE SATURATED WITH PERSPIRATION. PT REPORTED POSS LOW BS--SPOT CHECK FOR BLOOD SUGAR DONE AT 0314--PT WAS 179. REGULAR INTERVAL ROUNDING COMPLETE; CALL LIGHT ACCESSIBLE.
[2024-02-03 05:40] LABS: Bun/Creatinine Ratio 16.3 (12.0-20.0); Calcium, Blood 9.1 mg/dL (8.5-10.1); Creatinine, Blood 2.15 mg/dL (0.40-1.00); Potassium, Blood 4.6 mmol/L (3.5-5.5)
[2024-02-03 07:11] VITALS: BP 166/61
[2024-02-03 15:04] VITALS: BP 131/46
--- NOTE | 2024-02-03 18:53 | NUR ---
PT COOPERATIVE WITH CARE, WORKED WITH PT AND OT. INCONTINENT OF BOWEL AND BLADDER, 2 LARGE STOOLS THIS SHIFT. PT C/O COUGH WITH GREEN MUCUS, COUGH MEDICATION GIVEN X 1. NO COMPLAINTS OF PAIN. AWAITING PLACEMENT. CALL LIGHT IN REACH.
[2024-02-03 19:26] VITALS: BP 132/55
[2024-02-04 03:05] VITALS: BP 156/57
[2024-02-04 05:54] LABS: BASOPHILS PERCENT AUTO 1 % (0-2); EOSINOPHILS ABSOLUTE AUTO 0.74 K/mm3 (0.00-0.68); EOSINOPHILS PERCENT AUTO 8 % (0-6); Hematocrit 33.2 % (33.0-51.0); Hemoglobin 10.7 g/dL (11.5-16.0); IMMATURE GRAN PERCENT AUTO 1 % (0-1); LYMPHOCYTES ABSOLUTE AUTO 2.47 K/mm3 (0.84-5.20); LYMPHOCYTES PERCENT AUTO 27 % (21-46); MONOCYTES ABSOLUTE AUTO 1.04 K/mm3 (0.16-1.47); MONOCYTES PERCENT AUTO 11 % (4-13); Mean Corpuscular HGB 27.2 pg (26.0-34.0); Mean Corpuscular HGB Conc 32.2 g/dL (31.5-36.5); Mean Corpuscular Volume 85 fL (80-100); Mean Platelet Volume 9.6 fL (9.1-12.4); NEUTROPHILS ABSOLUTE AUTO 4.83 K/mm3 (1.96-9.15); NEUTROPHILS PERCENT AUTO 52 % (41-73); Platelet Count 289 K/mm3 (150-400); RDW Coefficient Variation 13.4 % (11.7-14.2); RDW Standard Deviation 41.5 fL (35.1-46.3); Red Blood Cell Count 3.93 M/mm3 (3.80-5.20); White Blood Cell Count 9.28 K/mm3 (4.00-11.30)
[2024-02-04 06:22] LABS: Bun/Creatinine Ratio 22.5 (12.0-20.0); Creatinine, Blood 1.91 mg/dL (0.40-1.00); Potassium, Blood 4.6 mmol/L (3.5-5.5)
--- NOTE | 2024-02-04 06:42 | NUR ---
SHIFT SUMMARY PT PLEASANT AND RECEPTIVE TO CARE PROVIDED. SLEEPING SOUNDLY THROUGHOUT SHIFT. BRIEF CHANGED AND PT REPOSITIONED Q2HRS PRN.
[2024-02-04 07:04] VITALS: BP 144/58
[2024-02-04 15:37] VITALS: BP 123/53
--- NOTE | 2024-02-04 18:38 | NUR ---
SHIFT SUMMARY THE PT IS A&OX4, CALLS APPRORPAITELY, AND MAKES HER NEEDS KNOWN. SHE IS A Q2 TURN, INC OF URINE AND BM, AND IS A SIT TO STAND TRANSFER. SHE HAS A HX OF THREE CVA'S AND HAS RIGHT SIDED FACIAL DROOP AND WEAKNESS. SHE DOES HAVE MOVEMENT IN ALL EXREMITIES BUT IS WEAKER ON HER RIGHT SIDE. SHE IS ON RA AND SP02 >90%. THE PT HAS DENIED SOB, BUT DOES HAVE A PRODUCTIVE LOOSE COUGH W/ MODERATE AMOUNTS OF ZAMBRANO/YELLOW SPUTUM. SHE IS NOT ON TELE. NO ACUTE EVENTS. SEE NTOES FOR UPDATES.
[2024-02-04 19:34] VITALS: BP 115/57
[2024-02-05 04:35] VITALS: BP 142/53
[2024-02-05 06:07] LABS: BASOPHILS ABSOLUTE AUTO 0.08 K/mm3 (0.00-0.23); BASOPHILS PERCENT AUTO 1 % (0-2); EOSINOPHILS ABSOLUTE AUTO 0.65 K/mm3 (0.00-0.68); EOSINOPHILS PERCENT AUTO 7 % (0-6); Hematocrit 31.5 % (33.0-51.0); Hemoglobin 10.3 g/dL (11.5-16.0); IMMATURE GRAN ABSOLUTE AUTO 0.11 K/mm3 (0.00-0.10); IMMATURE GRAN PERCENT AUTO 1 % (0-1); LYMPHOCYTES ABSOLUTE AUTO 2.41 K/mm3 (0.84-5.20); LYMPHOCYTES PERCENT AUTO 27 % (21-46); MONOCYTES ABSOLUTE AUTO 1.03 K/mm3 (0.16-1.47); MONOCYTES PERCENT AUTO 12 % (4-13); Mean Corpuscular HGB 27.4 pg (26.0-34.0); Mean Corpuscular HGB Conc 32.7 g/dL (31.5-36.5); Mean Corpuscular Volume 84 fL (80-100); Mean Platelet Volume 9.7 fL (9.1-12.4); NEUTROPHILS PERCENT AUTO 52 % (41-73); Platelet Count 287 K/mm3 (150-400); RDW Coefficient Variation 13.3 % (11.7-14.2); RDW Standard Deviation 40.5 fL (35.1-46.3); Red Blood Cell Count 3.76 M/mm3 (3.80-5.20); White Blood Cell Count 8.88 K/mm3 (4.00-11.30)
[2024-02-05 06:32] LABS: Bun/Creatinine Ratio 24.5 (12.0-20.0); Calcium, Blood 9.1 mg/dL (8.5-10.1); Creatinine, Blood 2.29 mg/dL (0.40-1.00); Potassium, Blood 4.6 mmol/L (3.5-5.5)
[2024-02-05 07:52] VITALS: BP 139/55
--- NOTE | 2024-02-05 09:00 | NUR ---
pt laying in bed awake, a/ox4 pleasant and cooperative with care, follows commands well, denies pain, states she's doing ok, denies pain, lungs are clear in upper montero, dim/crackles to bases, resp even and unlabored, has an occational moist cough, hrr, tele in place running sr with bbb, see strip, no edema noted, ppp+1, cap refill<3 sec, vs stable, afebrile, piv to rac site is clear and patent, btx4, abd flat soft nontender, incont of bowel/bladder, briefs in place, skin c/w/d, maew, is weaker on right side, call light in reach.
--- NOTE | 2024-02-05 18:28 | NUR ---
pt was up to chair for a few hrs today, pt/ot worked with her, watching tv most of the day, no acute changes this shift. call light in reach.
[2024-02-05 19:13] VITALS: BP 149/66
[2024-02-06 02:57] VITALS: BP 131/53
--- NOTE | 2024-02-06 03:47 | NUR ---
ASSISTED CARPET CLEANING TECHNICIAN WITH BED CHANGE AND ATTEND CHANGE AND NOTICED SOME MILD BREAKDOWN STARTING ON THE COCCYX OF PATIENT. I APPLIED A MEPILEX AND FLOATED PATIENTS RIGHT HIP.
--- NOTE | 2024-02-06 04:24 | NUR ---
PATIENT IS A DEONTE 73 YR YO WOMAN FULL CODE.PT IS INCONTINENT TO BOWEL AND URINE AND WILL NOT CALL WHEN SHE NEEDS CHANGED. PT HAS A HIST OF CVA AND RIGHT SIDED WEAKNESS.PT IS A&OX4 AND WILL ANSWER QUESTIONS APPROPRIATLEY. PT IS ON ROOM AIR AND HAS A NON PRODUCTIVE COUGH OFTEN. PT WAS ADMITTED 01/30/24 FOR COMMUNITY AQUIRED PNEUMONIA. PT IS TONTO APACHE AND TAKES MEDS WHOLE WITH WATER. PT HAS A HISTORY OF TYPE 2 DIABETES,COPD,HTN,ANXIETY,DEPRESSION,CKD AND HYPOTHYROIDISM. 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 CALL LIGHT WITHIN REACH,
[2024-02-06 05:54] LABS: BASOPHILS ABSOLUTE AUTO 0.08 K/mm3 (0.00-0.23); BASOPHILS PERCENT AUTO 1 % (0-2); EOSINOPHILS ABSOLUTE AUTO 0.64 K/mm3 (0.00-0.68); EOSINOPHILS PERCENT AUTO 6 % (0-6); Hemoglobin 10.4 g/dL (11.5-16.0); IMMATURE GRAN ABSOLUTE AUTO 0.12 K/mm3 (0.00-0.10); IMMATURE GRAN PERCENT AUTO 1 % (0-1); LYMPHOCYTES PERCENT AUTO 26 % (21-46); MONOCYTES ABSOLUTE AUTO 0.93 K/mm3 (0.16-1.47); MONOCYTES PERCENT AUTO 9 % (4-13); Mean Corpuscular HGB 28.3 pg (26.0-34.0); Mean Corpuscular HGB Conc 33.5 g/dL (31.5-36.5); Mean Corpuscular Volume 84 fL (80-100); Mean Platelet Volume 9.9 fL (9.1-12.4); NEUTROPHILS ABSOLUTE AUTO 5.67 K/mm3 (1.96-9.15); NEUTROPHILS PERCENT AUTO 56 % (41-73); Platelet Count 291 K/mm3 (150-400); RDW Coefficient Variation 13.5 % (11.7-14.2); RDW Standard Deviation 41.3 fL (35.1-46.3); Red Blood Cell Count 3.68 M/mm3 (3.80-5.20); White Blood Cell Count 10.04 K/mm3 (4.00-11.30)
[2024-02-06 06:17] LABS: Bun/Creatinine Ratio 28.6 (12.0-20.0); Creatinine, Blood 2.34 mg/dL (0.40-1.00); Potassium, Blood 4.4 mmol/L (3.5-5.5)
[2024-02-06 07:43] VITALS: BP 147/59
--- NOTE | 2024-02-06 10:34 | NUR ---
DR FRIAS ROUNDED, PATIENT SLOW TO RESPOND, VERY POOR SWALLOW WITH THIN LIQUIDS THIS AM, REPORTED TO DR FRIAS, EVAL AND TX ORDERED, NOTIFIED ST, PATIENT REPOSITIONED, CALL LIGHT WITH IN REACH
[2024-02-06 15:28] VITALS: BP 112/45
--- NOTE | 2024-02-06 17:59 | NUR ---
NO ACUTE HCANGES, OOB IN CHAIR WITH LIFT, SLOW TO RESPOND, POOR SWALLOW THIS AM, ST ORDERED, THICKED LIQUIDS NOW, REPORTED TO PATIENTS SISTER, REPOSITIONED THROUGH OUT THE DAY, CALL LIGHT WITH IN REACH
[2024-02-06 19:40] VITALS: BP 134/47
[2024-02-07 05:25] LABS: BASOPHILS ABSOLUTE AUTO 0.06 K/mm3 (0.00-0.23); BASOPHILS PERCENT AUTO 1 % (0-2); EOSINOPHILS ABSOLUTE AUTO 0.62 K/mm3 (0.00-0.68); EOSINOPHILS PERCENT AUTO 6 % (0-6); Hematocrit 31.8 % (33.0-51.0); Hemoglobin 10.3 g/dL (11.5-16.0); IMMATURE GRAN ABSOLUTE AUTO 0.15 K/mm3 (0.00-0.10); IMMATURE GRAN PERCENT AUTO 2 % (0-1); LYMPHOCYTES PERCENT AUTO 25 % (21-46); MONOCYTES ABSOLUTE AUTO 0.86 K/mm3 (0.16-1.47); MONOCYTES PERCENT AUTO 9 % (4-13); Mean Corpuscular HGB 27.7 pg (26.0-34.0); Mean Corpuscular HGB Conc 32.4 g/dL (31.5-36.5); Mean Corpuscular Volume 86 fL (80-100); Mean Platelet Volume 10.1 fL (9.1-12.4); NEUTROPHILS ABSOLUTE AUTO 5.72 K/mm3 (1.96-9.15); NEUTROPHILS PERCENT AUTO 58 % (41-73); Platelet Count 293 K/mm3 (150-400); RDW Coefficient Variation 13.6 % (11.7-14.2); RDW Standard Deviation 42.2 fL (35.1-46.3); Red Blood Cell Count 3.72 M/mm3 (3.80-5.20); White Blood Cell Count 9.81 K/mm3 (4.00-11.30)
[2024-02-07 05:59] VITALS: BP 132/49
[2024-02-07 06:01] LABS: Bun/Creatinine Ratio 30.4 (12.0-20.0); Calcium, Blood 8.9 mg/dL (8.5-10.1); Creatinine, Blood 2.37 mg/dL (0.40-1.00); Potassium, Blood 4.7 mmol/L (3.5-5.5)
--- NOTE | 2024-02-07 06:09 | NUR ---
SHIFT SUMMARY: Pt is admitted for PNA and is a full code. Is alert and able to make needs known. ADLs have been a mix of 1-2 depending on activity. Denies pain or discomfort when asked.
[2024-02-07 07:43] VITALS: BP 140/62
--- NOTE | 2024-02-07 15:18 | NUR ---
SHIFT SUMMARY PT AWAKENED FOR SHIFT REPORT. WEAK AND DECONDITIONED. ADMITTED FOR CAP, ON IV ABX. LUNGS T/O WITH SCATTERED INSP/EXP WHEEZES. PT IS INCONTINENT OF BOWEL AND BLADDER. CLEANED AND CHANGED AT START OF SHIFT. BED BATH GIVEN. PT ASSISTED TO RECLINER CHAIR AT BS USING LIFT. PT ABLE TO FEED HERSELF MECH SOFT DIET, BUT UNABLE TO SWALLOW MEDS WHOLE, EVEN IN PUDDING. MEDS NEEDING TO BE CRUSHED. NO C/O PAIN. HX CVA WITH R SIDE DEFICITS. CALL LT IN REACH. ABLE TO MAKE NEEDS KNOWN.
[2024-02-07 16:05] VITALS: BP 142/57
[2024-02-07 20:25] VITALS: BP 159/48
[2024-02-08 03:17] VITALS: BP 147/46
[2024-02-08 04:40] LABS: BASOPHILS ABSOLUTE AUTO 0.09 K/mm3 (0.00-0.23); BASOPHILS PERCENT AUTO 1 % (0-2); EOSINOPHILS ABSOLUTE AUTO 0.59 K/mm3 (0.00-0.68); EOSINOPHILS PERCENT AUTO 6 % (0-6); Hematocrit 31.5 % (33.0-51.0); Hemoglobin 10.2 g/dL (11.5-16.0); IMMATURE GRAN ABSOLUTE AUTO 0.09 K/mm3 (0.00-0.10); IMMATURE GRAN PERCENT AUTO 1 % (0-1); LYMPHOCYTES ABSOLUTE AUTO 1.92 K/mm3 (0.84-5.20); LYMPHOCYTES PERCENT AUTO 18 % (21-46); MONOCYTES ABSOLUTE AUTO 0.95 K/mm3 (0.16-1.47); MONOCYTES PERCENT AUTO 9 % (4-13); Mean Corpuscular HGB 27.3 pg (26.0-34.0); Mean Corpuscular HGB Conc 32.4 g/dL (31.5-36.5); Mean Corpuscular Volume 85 fL (80-100); Mean Platelet Volume 9.7 fL (9.1-12.4); NEUTROPHILS ABSOLUTE AUTO 6.84 K/mm3 (1.96-9.15); NEUTROPHILS PERCENT AUTO 65 % (41-73); Platelet Count 270 K/mm3 (150-400); RDW Coefficient Variation 13.3 % (11.7-14.2); RDW Standard Deviation 41.1 fL (35.1-46.3); Red Blood Cell Count 3.73 M/mm3 (3.80-5.20); White Blood Cell Count 10.48 K/mm3 (4.00-11.30)
[2024-02-08 05:00] LABS: Bun/Creatinine Ratio 33.7 (12.0-20.0); Creatinine, Blood 1.87 mg/dL (0.40-1.00); Potassium, Blood 4.5 mmol/L (3.5-5.5)
[2024-02-08 07:57] VITALS: BP 123/50
--- NOTE | 2024-02-08 15:38 | NUR ---
SHIFT SUMMARY PT RESTING QUIETLY AWAKE AT START OF SHIFT. WATCHING TV. FAMILY IN TO VISIT EARLY FOR A WHILE. PT ASSISTED UP TO RECLINER CHAIR AT THIS AM USING LIFT. PT MORE AWAKE TODAY. LUNGS T/O LESS WHEEZY THAN YESTERDAY. PT REMAINS INCONTINENT OF BOWEL AND BLADDER; PUREWICK IN PLACE. RECEIVING IV ABX PER EMAR. NO C/O PAIN. PT TO RETURN TO [facility] WHEN READY. CALL LT IN PLACE. ABLE TO MAKE NEEDS KNOWN.
[2024-02-08 16:34] VITALS: BP 145/49
[2024-02-08 19:18] VITALS: BP 124/88
[2024-02-09 02:41] VITALS: BP 134/57
[2024-02-09 04:51] LABS: BASOPHILS ABSOLUTE AUTO 0.09 K/mm3 (0.00-0.23); BASOPHILS PERCENT AUTO 1 % (0-2); EOSINOPHILS ABSOLUTE AUTO 0.72 K/mm3 (0.00-0.68); EOSINOPHILS PERCENT AUTO 7 % (0-6); Hemoglobin 10.3 g/dL (11.5-16.0); IMMATURE GRAN ABSOLUTE AUTO 0.09 K/mm3 (0.00-0.10); IMMATURE GRAN PERCENT AUTO 1 % (0-1); LYMPHOCYTES ABSOLUTE AUTO 2.38 K/mm3 (0.84-5.20); LYMPHOCYTES PERCENT AUTO 24 % (21-46); MONOCYTES ABSOLUTE AUTO 0.91 K/mm3 (0.16-1.47); MONOCYTES PERCENT AUTO 9 % (4-13); Mean Corpuscular HGB 27.2 pg (26.0-34.0); Mean Corpuscular HGB Conc 32.2 g/dL (31.5-36.5); Mean Corpuscular Volume 85 fL (80-100); Mean Platelet Volume 9.5 fL (9.1-12.4); NEUTROPHILS ABSOLUTE AUTO 5.93 K/mm3 (1.96-9.15); NEUTROPHILS PERCENT AUTO 59 % (41-73); Platelet Count 270 K/mm3 (150-400); RDW Coefficient Variation 13.3 % (11.7-14.2); RDW Standard Deviation 40.8 fL (35.1-46.3); Red Blood Cell Count 3.78 M/mm3 (3.80-5.20); White Blood Cell Count 10.12 K/mm3 (4.00-11.30)
[2024-02-09 05:06] LABS: Bun/Creatinine Ratio 33.3 (12.0-20.0); Calcium, Blood 8.9 mg/dL (8.5-10.1); Creatinine, Blood 1.83 mg/dL (0.40-1.00); Potassium, Blood 4.6 mmol/L (3.5-5.5)
[2024-02-09 07:12] VITALS: BP 141/56
[2024-02-09 15:23] VITALS: BP 122/38
--- NOTE | 2024-02-09 15:28 | NUR ---
SHIFT REPORT MS UHNG IS ABLE TO ANSWER ORIENTATION QUESTIONS AND ABLE TO TELL ME WHY SHE IS IN HOSPITAL BUT DOES SEEM GENERALLY FORGETFUL. SHE WAS ENCOURAGED TO GET UP INTO THE CHAIR USING HUYER LIFT AND TOLERATED SITTING UP FOR A FEW HOURS. SHE HAS A MOIST PRODUCTIVE COUGH AND WAS ENCOURAGED TO DO INCENTIVE SPIROMETRY. SHE FORGETS HOW TO USE IT, EVEN DURING THE SESSION, AND IS ABLE TO DO IT ONLY UP TO 500CC WITH POOR TECHNIQUE. INCONTINENT OF SMALL BROWN STOOL, SHE SAID SHE IS UNAWARE OF WHEN SHE NEEDS TO DEFECATE. SMALL OPEN WOUND ON COCCYX CLEANSED, MELIPEX APPLIED AND PHOTOGRAPH IN CHART. PURE WICK IN PLACE FOR URINARY INCONTINENCE AND SKIN CARE, CHANGED WHEN SHE GOT BACK INTO BED. SHE PERFORMED ADLS WITH PROMPTING, ENCOURAGEMENT AND ASSISTANCE. SHE HELPED WITH HER ORAL CARE, SHE USED A WASHCLOTH ON HER CHEST, ARMS AND FACE. WEAK ARM MOVEMENT. SHE WAS UNABLE TO ASSIST WITH LEGS/BLADIMIR AREA OR HAIR. BACK IN BED NOW, PILLOWS AND REPOSITIONED FOR PRESSURE RELIEF. BED LOW, CALL LIGHT IN REACH.
[2024-02-09 19:45] VITALS: BP 110/42; BP 117/64
[2024-02-09 19:47] VITALS: BP 123/51
[2024-02-10 05:16] VITALS: BP 149/54
--- NOTE | 2024-02-10 05:25 | NUR ---
SHIFT SUMMARY PT IS ALERT AND ORIENTED TIMES 2 TO 3. PT IS POLITE AND RECEPTIVE TO CARE. PT ABLE TO MAKE NEEDS KNOWN. STAFF HAVE BEEN USING ELEONORA LIFT TO MOVE HER TO CHAIR FOR MEALS. PT HAS WOUND ON COCCYX WITH MEPILEX DRESSING. PT APPEARED TO SLEEP ON AND OFF THROUGHOUT THE NIGHT. BED IN LOW POSITION, CALL LIGHT WITHIN REACH, RAILS TIMES 2.
[2024-02-10 08:04] VITALS: BP 121/50
[2024-02-10 12:44] LABS: BASOPHILS ABSOLUTE AUTO 0.09 K/mm3 (0.00-0.23); BASOPHILS PERCENT AUTO 1 % (0-2); EOSINOPHILS ABSOLUTE AUTO 0.63 K/mm3 (0.00-0.68); EOSINOPHILS PERCENT AUTO 5 % (0-6); Hematocrit 34.3 % (33.0-51.0); Hemoglobin 11.3 g/dL (11.5-16.0); IMMATURE GRAN ABSOLUTE AUTO 0.06 K/mm3 (0.00-0.10); IMMATURE GRAN PERCENT AUTO 1 % (0-1); LYMPHOCYTES ABSOLUTE AUTO 2.15 K/mm3 (0.84-5.20); LYMPHOCYTES PERCENT AUTO 18 % (21-46); MONOCYTES ABSOLUTE AUTO 0.84 K/mm3 (0.16-1.47); MONOCYTES PERCENT AUTO 7 % (4-13); Mean Corpuscular HGB 27.9 pg (26.0-34.0); Mean Corpuscular HGB Conc 32.9 g/dL (31.5-36.5); Mean Corpuscular Volume 85 fL (80-100); Mean Platelet Volume 10.2 fL (9.1-12.4); NEUTROPHILS ABSOLUTE AUTO 7.91 K/mm3 (1.96-9.15); NEUTROPHILS PERCENT AUTO 68 % (41-73); Platelet Count 295 K/mm3 (150-400); RDW Standard Deviation 39.9 fL (35.1-46.3); Red Blood Cell Count 4.05 M/mm3 (3.80-5.20); White Blood Cell Count 11.68 K/mm3 (4.00-11.30)
[2024-02-10 13:25] LABS: Albumin, Blood 3.1 g/dL (3.4-5.0); Albumin/Globulin Ratio 0.8 (0.8-1.8); Bilirubin, Total 0.2 mg/dL (0.1-1.0); Bun/Creatinine Ratio 33.2 (12.0-20.0); Calcium, Blood 9.3 mg/dL (8.5-10.1); Creatinine, Blood 1.87 mg/dL (0.40-1.00); Potassium, Blood 4.8 mmol/L (3.5-5.5); Total Protein, Blood 7.1 g/dL (6.4-8.2)
--- NOTE | 2024-02-10 16:54 | NUR ---
SUMMARY- PT A/O X3, BEDREST WITH SIT TO STAND. GOT UP IN CHAIR FOR DINNER. PT HAD REPEAT CXR PENDING RESULTS. PT DISPUTED DC BECAUSE SHE DOESN'T FEEL BACK TO BASELINE STILL FEELING WEAKNESS. PT HAS COARSE LUNGS AND ENC COUGH AND DEEP BREATH, STILL MIN PRODUCTION. LUNGS SCATTERED RHONCHI WITH OCC WHEEZE. DENIES PAIN. TOLERATING FOOD AND FLUIDS. MEPILEX ON BOTTOM FOR REPORTED REDNESS. BLOOD SUGARS RANGE FROM 200-300, COVERED WITH SSI. INCONT B/B, USING PUREWICK. SMALL SOFT ZAMBRANO BM TODAY. WILL REPORT TO NOC RN
[2024-02-10 17:01] VITALS: BP 132/46
[2024-02-10 19:21] VITALS: BP 90/66
--- NOTE | 2024-02-11 03:19 | NUR ---
SHIFT SUMMARY PT IS A&O X3-4, ABLE TO MAKE HER NEEDS KNOWN, COOPERATIVE WITH CARE. HS B. PT HAS SOFT STOOLS, ATTENDS IN PLACE. PT DENIES PAIN AND DISCOMFORT. NO ACUTE EVENTS DURING THIS SHIFT. BED AT THE LOWEST POSITION, CALL LIGHT W/I REACH.
[2024-02-11 03:55] VITALS: BP 135/56
[2024-02-11 04:34] LABS: BASOPHILS ABSOLUTE AUTO 0.09 K/mm3 (0.00-0.23); BASOPHILS PERCENT AUTO 1 % (0-2); EOSINOPHILS ABSOLUTE AUTO 0.77 K/mm3 (0.00-0.68); EOSINOPHILS PERCENT AUTO 7 % (0-6); Hematocrit 34.1 % (33.0-51.0); Hemoglobin 11.3 g/dL (11.5-16.0); IMMATURE GRAN ABSOLUTE AUTO 0.07 K/mm3 (0.00-0.10); IMMATURE GRAN PERCENT AUTO 1 % (0-1); LYMPHOCYTES ABSOLUTE AUTO 2.76 K/mm3 (0.84-5.20); LYMPHOCYTES PERCENT AUTO 24 % (21-46); MONOCYTES ABSOLUTE AUTO 0.88 K/mm3 (0.16-1.47); MONOCYTES PERCENT AUTO 8 % (4-13); Mean Corpuscular HGB 27.8 pg (26.0-34.0); Mean Corpuscular HGB Conc 33.1 g/dL (31.5-36.5); Mean Corpuscular Volume 84 fL (80-100); Mean Platelet Volume 9.9 fL (9.1-12.4); NEUTROPHILS ABSOLUTE AUTO 6.74 K/mm3 (1.96-9.15); NEUTROPHILS PERCENT AUTO 60 % (41-73); Platelet Count 310 K/mm3 (150-400); RDW Coefficient Variation 13.1 % (11.7-14.2); RDW Standard Deviation 39.5 fL (35.1-46.3); Red Blood Cell Count 4.07 M/mm3 (3.80-5.20); White Blood Cell Count 11.31 K/mm3 (4.00-11.30)
[2024-02-11 04:56] LABS: Bun/Creatinine Ratio 33.5 (12.0-20.0); Calcium, Blood 9.4 mg/dL (8.5-10.1); Creatinine, Blood 1.97 mg/dL (0.40-1.00); Potassium, Blood 4.6 mmol/L (3.5-5.5)
[2024-02-11 07:38] VITALS: BP 144/69
[2024-02-11] MEDS ORDERED: ATOR40TA PO (13:48)
--- NOTE | 2024-02-11 14:03 | NUR ---
DISCHARGE PT DISCHARGED HOME TO [facility] WITH TRANSPORT VIA [facility], [facility] AND ALL BELONGINGS SENT [facility] PT.
== END 2024-02-11 13:58 | disposition home health service (06) | DRG 178 ==
LOC: ER 13:24 → ERHOLD 13:25 → MEDS 13:25 → ENPENDDIS 02-10 10:17 → MEDS 02-11 13:58
PROVIDERS: Emergency Medicine; Internal Medicine; Nurse Practitioner Acute Care; ADMIT Internal Medicine
DX: J15.69 Pneumonia due to other Gram-negative bacteria (principal); I24.89 Other forms of acute ischemic heart disease; I69.351 Hemiplegia and hemiparesis following cerebral infarction affecting right dominant side; N18.4 Chronic kidney disease, stage 4 (severe); I12.9 Hypertensive chronic kidney disease with stage 1 through stage 4 chronic kidney disease, or unspecified chronic kidney disease; Z66 Do not resuscitate; E11.22 Type 2 diabetes mellitus with diabetic chronic kidney disease; E11.649 Type 2 diabetes mellitus with hypoglycemia without coma; E78.5 Hyperlipidemia, unspecified; M19.90 Unspecified osteoarthritis, unspecified site; F32.A Depression, unspecified; F41.9 Anxiety disorder, unspecified; Z79.4 Long term (current) use of insulin; E03.9 Hypothyroidism, unspecified; Z79.02 Long term (current) use of antithrombotics/antiplatelets; Z79.899 Other long term (current) drug therapy; Z79.890 Hormone replacement therapy; Z88.1 Allergy status to other antibiotic agents; Z88.8 Allergy status to other drugs, medicaments and biological substances; Z88.2 Allergy status to sulfonamides; Z88.0 Allergy status to penicillin
CPT/HCPCS: 0241U; 36415; 70450; 70551; 71045; 71046; 71260; 80048; 80053; 80061; 82947; 83605; 83735; 83880; 84145; 84484; 85025; 85379; 85520; 85610; 85730; 87040; 92610; 93005; 93010; 93306; 94640; 94664; 94760; 96365-59; 96366; 96368; 96372; 96375-59; 96376; 97110; 97162; 97164; 97165; 97530; 97535; 99285-25; A9270; G0378; J0456; J0696; J1644; J1815; J7030; J7050; Q9967

== ENCOUNTER 2024-04-03 14:33 | Emergency (ER) | payer OTHER ==
[~2024-04-03] VITALS: Ht 162.6 cm; Wt 81.7 kg
[~2024-04-03 14:33] MED LIST changes: +ATOR40TA PO; +INSULIN AS100 UNIT/8 SQ; +LEVSOD75 PO; +LOSA50 PO; +SEMGLEE (Y100 UNIT/2 SQ
[2024-04-03 15:53] LABS: BASOPHILS ABSOLUTE AUTO 0.07 K/mm3 (0.00-0.23); BASOPHILS PERCENT AUTO 1 % (0-2); EOSINOPHILS ABSOLUTE AUTO 0.47 K/mm3 (0.00-0.68); EOSINOPHILS PERCENT AUTO 5 % (0-6); Hematocrit 33.3 % (33.0-51.0); IMMATURE GRAN ABSOLUTE AUTO 0.04 K/mm3 (0.00-0.10); IMMATURE GRAN PERCENT AUTO 0 % (0-1); LYMPHOCYTES ABSOLUTE AUTO 2.11 K/mm3 (0.84-5.20); LYMPHOCYTES PERCENT AUTO 21 % (21-46); MONOCYTES ABSOLUTE AUTO 0.86 K/mm3 (0.16-1.47); MONOCYTES PERCENT AUTO 9 % (4-13); Mean Corpuscular HGB 27.6 pg (26.0-34.0); Mean Corpuscular Volume 84 fL (80-100); Mean Platelet Volume 10.1 fL (9.1-12.4); NEUTROPHILS ABSOLUTE AUTO 6.31 K/mm3 (1.96-9.15); NEUTROPHILS PERCENT AUTO 64 % (41-73); Platelet Count 324 K/mm3 (150-400); RDW Coefficient Variation 12.6 % (11.7-14.2); RDW Standard Deviation 38.6 fL (35.1-46.3); Red Blood Cell Count 3.98 M/mm3 (3.80-5.20); White Blood Cell Count 9.86 K/mm3 (4.00-11.30)
[2024-04-03 16:14] LABS: Albumin, Blood 2.6 g/dL (3.4-5.0); Albumin/Globulin Ratio 0.6 (0.8-1.8); Bilirubin, Total 0.3 mg/dL (0.1-1.0); Bun/Creatinine Ratio 19.6 (12.0-20.0); Creatinine, Blood 1.68 mg/dL (0.40-1.00); Potassium, Blood 4.2 mmol/L (3.5-5.5); Total Protein, Blood 6.6 g/dL (6.4-8.2)
[2024-04-03 17:03] LABS: Source, Urine Straight Cath
[2024-04-03 17:06] LABS: Appearance, Urine Clear (Clear); Bilirubin, Urine Neg (Neg); Blood, Urine Neg (Neg); Glucose Qualitative, Urine 4+ (Neg); Ketones, Urine Neg (Neg); Leukocyte Esterase, Urine 1+ (Neg); Nitrite, Urine Neg (Neg); Protein, Urine 3+ (Neg); Urobilinogen, Urine NORM (Normal)
[2024-04-03 17:13] LABS: Color, Urine Pale Yellow (P-Yellow)
[2024-04-03 17:14] LABS: Bacteria Few /hpf; Red Blood Cells, Urine Not Seen /hpf (0-2); Squamous Epithelial Cells Not Seen /hpf (Few)
[2024-04-03] MEDS ORDERED: CefTRIAXone Sodium 2,000 MG in NS 100 ML IV ONE (21:50)
[2024-04-03] MEDS ORDERED: Insulin Regular 100 Unit/ML 1ML Dose IV ONE (21:50)
[2024-04-03 22:30] VITALS: BP 126/59
[2024-04-03] MEDS ORDERED: CEFD300 PO (22:49)
== END 2024-04-03 23:22 | disposition home or self-care (01) ==
LOC: ER 14:33
PROVIDERS: Emergency Medicine
DX: E11.65 Type 2 diabetes mellitus with hyperglycemia (principal); N30.90 Cystitis, unspecified without hematuria; I10 Essential (primary) hypertension; E03.9 Hypothyroidism, unspecified; J44.9 Chronic obstructive pulmonary disease, unspecified; Z87.891 Personal history of nicotine dependence; Z86.73 Personal history of transient ischemic attack (TIA), and cerebral infarction without residual deficits; Z88.0 Allergy status to penicillin; Z88.1 Allergy status to other antibiotic agents; Z88.2 Allergy status to sulfonamides; Z88.8 Allergy status to other drugs, medicaments and biological substances; Z79.01 Long term (current) use of anticoagulants; Z79.4 Long term (current) use of insulin; Z79.890 Hormone replacement therapy; Z79.899 Other long term (current) drug therapy
CPT/HCPCS: 51701; 71045; 74177; 80053; 81001; 82947; 83690; 83880; 84484; 85025; 87077; 87086; 87147; 87186; 96365-59; 99285-25; J0696; J1815; Q9967

== ENCOUNTER → 2024-04-23 | Outpatient (CLI) | payer OTHER | LOC: LAB 17:37 → LAB SHORT 17:37 | DX: N39.0 Urinary tract infection, site not specified (principal) | CPT/HCPCS: 87086 ==

== ENCOUNTER 2024-05-25 13:18 | Inpatient (IN) | payer OTHER ==
[~2024-05-25] VITALS: Ht 165.1 cm; Wt 67.9 kg
[2024-05-25 13:54] LABS: BASOPHILS ABSOLUTE AUTO 0.09 K/mm3 (0.00-0.23); BASOPHILS PERCENT AUTO 1 % (0-2); EOSINOPHILS PERCENT AUTO 0 % (0-6); Hematocrit 37.8 % (33.0-51.0); Hemoglobin 12.7 g/dL (11.5-16.0); IMMATURE GRAN PERCENT AUTO 1 % (0-1); LYMPHOCYTES ABSOLUTE AUTO 0.86 K/mm3 (0.84-5.20); LYMPHOCYTES PERCENT AUTO 7 % (21-46); MONOCYTES ABSOLUTE AUTO 1.17 K/mm3 (0.16-1.47); MONOCYTES PERCENT AUTO 9 % (4-13); Mean Corpuscular HGB 28.3 pg (26.0-34.0); Mean Corpuscular HGB Conc 33.6 g/dL (31.5-36.5); Mean Corpuscular Volume 84 fL (80-100); Mean Platelet Volume 9.5 fL (9.1-12.4); NEUTROPHILS ABSOLUTE AUTO 10.87 K/mm3 (1.96-9.15); NEUTROPHILS PERCENT AUTO 83 % (41-73); Platelet Count 292 K/mm3 (150-400); RDW Coefficient Variation 13.2 % (11.7-14.2); RDW Standard Deviation 40.5 fL (35.1-46.3); Red Blood Cell Count 4.49 M/mm3 (3.80-5.20); White Blood Cell Count 13.09 K/mm3 (4.00-11.30)
[2024-05-25 14:02] LABS: Source, Urine Clean Catch
[2024-05-25 14:08] LABS: Bilirubin, Urine Neg (Neg); Blood, Urine 3+ (Neg); Color, Urine Yellow (P-Yellow); Glucose Qualitative, Urine 1+ (Neg); Ketones, Urine Neg (Neg); Leukocyte Esterase, Urine 1+ (Neg); Nitrite, Urine Neg (Neg); Protein, Urine 4+ (Neg); Urobilinogen, Urine NORM (Normal)
[2024-05-25 14:16] LABS: Appearance, Urine Hazy (Clear)
[2024-05-25 14:17] LABS: Amorphous Light (0-Heavy); Bacteria Few /hpf; Hyaline Casts 0-2 /lpf (0-2); Squamous Epithelial Cells Few /hpf (Few)
[2024-05-25] MEDS ORDERED: CALCIUM 600-VI1 EAC4 PO (14:23)
[2024-05-25] MEDS ORDERED: PROBIOTIC1 EA13 PO (14:25)
[2024-05-25] MEDS ORDERED: LevoFLOXacin 750 MG/D5W 150ML 150 ML IV ONE (14:40)
[2024-05-25] MEDS ORDERED: LevoFLOXacin 250MG/D5W 50ML 50 ML IV ONE (14:50)
[2024-05-25] MEDS ORDERED: LevoFLOXacin 500MG/D5W 100ML 100 ML IV ONE (14:50)
[2024-05-25 14:54] LABS: Albumin, Blood 3.2 g/dL (3.4-5.0); Albumin/Globulin Ratio 0.7 (0.8-1.8); Bilirubin, Total 0.4 mg/dL (0.1-1.0); Bun/Creatinine Ratio 16.7 (12.0-20.0); Calcium, Blood 8.8 mg/dL (8.5-10.1); Creatinine, Blood 1.8 mg/dL (0.40-1.00); Globulin, Blood 4.4 g/dL (2.2-4.0); Phosphorus, Blood 2.3 mg/dL (2.5-4.9); Total Protein, Blood 7.6 g/dL (6.4-8.2)
[2024-05-25 15:06] LABS: Influenza B, PCR NEGATIVE (NEGATIVE); Resp Syncytial Virus, PCR NEGATIVE (NEGATIVE); SARS-Cov-2 (COVID-19) PCR, MMC NEGATIVE (NEGATIVE)
[2024-05-25 15:07] LABS: Influenza A, PCR POSITIVE (NEGATIVE)
[2024-05-25] MEDS ORDERED: SENN187 PO (15:36)
[2024-05-25] MEDS ORDERED: TRELEGY ELLIPT1 EAC1 INH (15:37)
[2024-05-25] MEDS ORDERED: Acetaminophen650 M1 PO (15:37)
[2024-05-25] MEDS ORDERED: ALBU90OI INH (15:39)
[2024-05-25] MEDS ORDERED: BISA10S PR (15:39)
[2024-05-25] MEDS ORDERED: IPRAT-ALBUT 0.5-3 ML INH (15:40)
[2024-05-25] MEDS ORDERED: ONDA4 PO (15:41)
[2024-05-25] MEDS ORDERED: LACT10SY PO (15:41)
[2024-05-25] MEDS ORDERED: NALOXONE HCL4 MG (15:41)
[2024-05-25] MEDS ORDERED: MIRALAX119 G2 PO (15:42)
[2024-05-25] MEDS ORDERED: Percocet 5-3251 EACH PO (15:42)
[2024-05-25] MEDS ORDERED: FLU VACC TS2024-25(6MOS UP)/PF 45 MCG/0.5 ML SYRINGE IM SCH (16:20)
[2024-05-25] MEDS ORDERED: Acetaminophen 325 MG TABLET PO PRN (17:00)
[2024-05-25] MEDS ORDERED: Potassium Phos/Sodium Phos 250 MG PACK PO ONE (17:00)
[2024-05-25] MEDS ORDERED: Ipratropium Bromide INH 0.02% 0.5 mg/2.5ML Vial INH SCH (17:10)
[2024-05-25] MEDS ORDERED: Mometasone/Formoterol MDI 200/5 mcg 13 GM INH SCH (17:10)
[2024-05-25] MEDS ORDERED: Lactated Ringer's 1,000 ML IV SCH (17:30)
[2024-05-25] MEDS ORDERED: Oseltamvir Phosphate 30 MG Cap PO SCH (18:00)
[2024-05-25 18:53] VITALS: BP 140/65
[2024-05-25] MEDS ORDERED: Lactobacil 2-S.Thermo-Bifido 1 1 Cap PO SCH (21:00)
[2024-05-25] MEDS ORDERED: Atorvastatin 40 MG Tab PO SCH (21:00)
[2024-05-25] MEDS ORDERED: Gabapentin 300 MG Cap PO SCH (21:00)
[2024-05-25] MEDS ORDERED: Insulin Glargine-Yfgn 100 Unit/mL 3 ML SYR SC SCH (21:00)
[2024-05-25 21:18] VITALS: BP 162/92
[2024-05-26 01:21] VITALS: BP 164/74
[2024-05-26 04:57] LABS: BASOPHILS ABSOLUTE AUTO 0.07 K/mm3 (0.00-0.23); BASOPHILS PERCENT AUTO 1 % (0-2); EOSINOPHILS ABSOLUTE AUTO 0.01 K/mm3 (0.00-0.68); EOSINOPHILS PERCENT AUTO 0 % (0-6); Hematocrit 34.5 % (33.0-51.0); Hemoglobin 11.3 g/dL (11.5-16.0); IMMATURE GRAN ABSOLUTE AUTO 0.06 K/mm3 (0.00-0.10); IMMATURE GRAN PERCENT AUTO 1 % (0-1); LYMPHOCYTES ABSOLUTE AUTO 0.82 K/mm3 (0.84-5.20); LYMPHOCYTES PERCENT AUTO 11 % (21-46); MONOCYTES ABSOLUTE AUTO 1.04 K/mm3 (0.16-1.47); MONOCYTES PERCENT AUTO 14 % (4-13); Mean Corpuscular HGB 27.7 pg (26.0-34.0); Mean Corpuscular HGB Conc 32.8 g/dL (31.5-36.5); Mean Corpuscular Volume 85 fL (80-100); Mean Platelet Volume 9.7 fL (9.1-12.4); NEUTROPHILS ABSOLUTE AUTO 5.41 K/mm3 (1.96-9.15); NEUTROPHILS PERCENT AUTO 73 % (41-73); Platelet Count 237 K/mm3 (150-400); RDW Coefficient Variation 13.2 % (11.7-14.2); RDW Standard Deviation 40.8 fL (35.1-46.3); Red Blood Cell Count 4.08 M/mm3 (3.80-5.20); White Blood Cell Count 7.41 K/mm3 (4.00-11.30)
[2024-05-26 05:03] VITALS: BP 134/73
[2024-05-26 05:26] LABS: Bun/Creatinine Ratio 18.1 (12.0-20.0); Calcium, Blood 8.1 mg/dL (8.5-10.1); Creatinine, Blood 1.71 mg/dL (0.40-1.00); Potassium, Blood 3.6 mmol/L (3.5-5.5)
[2024-05-26] MEDS ORDERED: Levothyroxine Sodium 0.075 MG Tab PO SCH (06:00)
[2024-05-26] MEDS ORDERED: Insulin Regular 100 UNIT/ML 10ML Vial SC SCH (07:30)
[2024-05-26 07:55] VITALS: BP 160/86
[2024-05-26] MEDS ORDERED: Citalopram Hydrobromide 20 MG Tab PO SCH (09:00)
[2024-05-26] MEDS ORDERED: Enoxaparin 30 MG/0.3 ML SYR SC SCH (09:00)
[2024-05-26] MEDS ORDERED: Losartan Potassium 50 MG Tab PO SCH (09:00)
[2024-05-26] MEDS ORDERED: AmLODIPine Besylate 5 MG Tab PO SCH (09:00)
[2024-05-26] MEDS ORDERED: Clopidogrel Bisulfate 75 MG Tab PO SCH (09:00)
[2024-05-26] MEDS ORDERED: Calcium 500 MG/Vit D 200 Units Tab PO SCH (09:00)
[2024-05-26] MEDS ORDERED: Vancomycin HCL 1,750 MG in NS 500 ML IV ONE (13:40)
[2024-05-26] MEDS ORDERED: NS 250 ML IV PRN (13:50)
[2024-05-26 15:59] VITALS: BP 128/90
[2024-05-26] MEDS ORDERED: Ipratropium Bromide INH 0.02% 0.5 mg/2.5ML Vial INH SCH (17:10)
--- NOTE | 2024-05-26 19:02 | NUR ---
PATIENT REPORTS FEELING MUCH BETTER TODAY. VSS, ON RA. RECEIVING BREATHING TREATMENTS PER RT. PUREWICK IN PLACE. USES LIFT FOR TRANSFERS AT BASELINE. LARGE LOOSE INCONTINENT BM THIS SHIFT. A/OX3, UNSURE OF DATE/TIME. SLOW TO RESPOND, WHICH IS BASELINE PER FAMILY. SR ON TELE WITH BBB, NO C/O CHEST PAIN OR PRESSURE. NO OTHER NEW CONCERNS THIS SHIFT.
[2024-05-26 20:25] VITALS: BP 144/55
[2024-05-27 00:37] VITALS: BP 118/60
--- NOTE | 2024-05-27 04:09 | NUR ---
lab called, ELIZABETH from 05/25 positive, notified, no changes as Pt is on ABX
[2024-05-27 04:25] VITALS: BP 156/61
[2024-05-27 05:06] LABS: BASOPHILS ABSOLUTE AUTO 0.05 K/mm3 (0.00-0.23); BASOPHILS PERCENT AUTO 1 % (0-2); EOSINOPHILS PERCENT AUTO 2 % (0-6); Hemoglobin 10.9 g/dL (11.5-16.0); IMMATURE GRAN ABSOLUTE AUTO 0.01 K/mm3 (0.00-0.10); IMMATURE GRAN PERCENT AUTO 0 % (0-1); LYMPHOCYTES ABSOLUTE AUTO 1.03 K/mm3 (0.84-5.20); LYMPHOCYTES PERCENT AUTO 19 % (21-46); MONOCYTES ABSOLUTE AUTO 0.73 K/mm3 (0.16-1.47); MONOCYTES PERCENT AUTO 14 % (4-13); Mean Corpuscular HGB 27.9 pg (26.0-34.0); Mean Corpuscular Volume 85 fL (80-100); Mean Platelet Volume 10.1 fL (9.1-12.4); NEUTROPHILS ABSOLUTE AUTO 3.39 K/mm3 (1.96-9.15); NEUTROPHILS PERCENT AUTO 64 % (41-73); Platelet Count 223 K/mm3 (150-400); RDW Coefficient Variation 13.2 % (11.7-14.2); RDW Standard Deviation 41.3 fL (35.1-46.3); White Blood Cell Count 5.31 K/mm3 (4.00-11.30)
[2024-05-27 05:51] LABS: Bun/Creatinine Ratio 18.6 (12.0-20.0); Creatinine, Blood 1.72 mg/dL (0.40-1.00); Potassium, Blood 3.9 mmol/L (3.5-5.5)
--- NOTE | 2024-05-27 06:31 | NUR ---
PT A&OX4, VS WNL, ON RA, L/S DIMINISHED. CBG 264 REQUIRED LONG ACTING INSULIN ONLY. PT WITH PURWIK EARLY IN SHIFT, THIS WAS REMOVED D/T LOOSE STOOLS. TELE NSR WITH BBB. SACRUM RED, BLANCHABLE, TURNING EVERY 2HRS, AND FLOATING WHEN SUPPINE. PT REQUIRES MEDS TO BE CRUSHED AND SHE WANTS IT DONE IN FRONT OF HER, SHE IS MAX ASSIST WITH ALL MOBILITY AND ADL'S. PLAN D/C BACK TO [facility].
[2024-05-27 07:31] VITALS: BP 154/64
[2024-05-27 13:44] LABS: Vancomycin, Random 16.9 ug/mL
[2024-05-27] MEDS ORDERED: Vancomycin HCL 750 MG in NS 250 ML IV ONE (14:00)
[2024-05-27] MEDS ORDERED: LevoFLOXacin 750 MG Tab PO SCH (16:00)
[2024-05-27 17:05] VITALS: BP 137/66
--- NOTE | 2024-05-27 19:22 | NUR ---
PATIENT A/OX4, SLOW TO RESPOND. VSS, ON RA. LIFT PATIENT AT BASELINE, TURNING Q2 HOURS. COUGH IMPROVING. HAVING DIARRHEA TODAY, INCONTINENT OF BOWEL. SR WITH BBB ON TELE, DENIES ANY CP OR PRESSURE. TYLENOL GIVEN X1 TODAY TO TREAT L HIP PAIN. NO OTHER NEW CONCERNS THIS SHIFT. FALL PRECAUTIONS IN PLACE.
[2024-05-27 19:57] VITALS: BP 130/70
[2024-05-27 23:39] VITALS: BP 129/47
--- NOTE | 2024-05-28 03:25 | NUR ---
AAOX3, MINIMAL EXPRESSIVE ASPHASIA. R SIDE DEFICITS, HX CVA. WC BOUND AND LIFT AT BASELINE. PT IS ABLE TO TURN SIDE TO SIDE IN BED. TELE, SR @74 WITH BBB. INCONTINENT OF URINE AND BM. DROPLET PRECAUTIONS FOR INFLUENZA A. RESIDES AT [facility] BT SISTER FRANCESCO IS LOOKING FOR NEW PLACE. NO ACUTE NEEDS OVERNIGHT, SLEPT WELL AND USED CALL LIGHT FOR NEEDS.
[2024-05-28 06:17] VITALS: BP 130/54
[2024-05-28 06:25] LABS: BASOPHILS ABSOLUTE AUTO 0.04 K/mm3 (0.00-0.23); BASOPHILS PERCENT AUTO 1 % (0-2); EOSINOPHILS PERCENT AUTO 5 % (0-6); Hematocrit 29.8 % (33.0-51.0); Hemoglobin 10.1 g/dL (11.5-16.0); IMMATURE GRAN ABSOLUTE AUTO 0.01 K/mm3 (0.00-0.10); IMMATURE GRAN PERCENT AUTO 0 % (0-1); LYMPHOCYTES ABSOLUTE AUTO 1.19 K/mm3 (0.84-5.20); LYMPHOCYTES PERCENT AUTO 31 % (21-46); MONOCYTES ABSOLUTE AUTO 0.54 K/mm3 (0.16-1.47); MONOCYTES PERCENT AUTO 14 % (4-13); Mean Corpuscular HGB 28.1 pg (26.0-34.0); Mean Corpuscular HGB Conc 33.9 g/dL (31.5-36.5); Mean Corpuscular Volume 83 fL (80-100); Mean Platelet Volume 10.1 fL (9.1-12.4); NEUTROPHILS ABSOLUTE AUTO 1.84 K/mm3 (1.96-9.15); NEUTROPHILS PERCENT AUTO 48 % (41-73); Platelet Count 223 K/mm3 (150-400); RDW Coefficient Variation 13.1 % (11.7-14.2); RDW Standard Deviation 39.6 fL (35.1-46.3); White Blood Cell Count 3.82 K/mm3 (4.00-11.30)
[2024-05-28 07:06] LABS: Bun/Creatinine Ratio 16.9 (12.0-20.0); Calcium, Blood 8.2 mg/dL (8.5-10.1); Creatinine, Blood 1.78 mg/dL (0.40-1.00); Potassium, Blood 4.1 mmol/L (3.5-5.5)
--- NOTE | 2024-05-28 07:22 | NUR ---
ASSUMED CARE OF PATIENT. AWAKE DURING SHIFT CHANGE REPORT c HOB ELEVATED. NO MEANINGFUL CONTRIBUTION TO REPORT. DROPLET ISO FOR INFLUENZA A. BED IN LOWEST POSITION, CALL LIGHT WITHIN REACH.
[2024-05-28 07:39] VITALS: BP 146/67
[2024-05-28] MEDS ORDERED: Insulin Glargine-Yfgn 100 Unit/mL 3 ML SYR SC SCH ×2 (11:00→21:00)
[2024-05-28 13:43] LABS: Vancomycin, Random 18.2 ug/mL
[2024-05-28] MEDS ORDERED: Dose Adjust by Pharmacy XX STA (13:48)
[2024-05-28 15:12] VITALS: BP 125/60
--- NOTE | 2024-05-28 17:33 | NUR ---
PALLIATIVE CARE VISIT: MET WITH PT IN HER ROOM. SON IS PRESENT. PT IS A/0 X 4 ABLE TO ANSWER QUESTIONS APPROPRIATELY. SHE IS WATCHING TV WITH HER SON. RECA EDUCATED ON PURPOSE OF PALLIATIVE CARE SUPPORTIVE CARE NEEDS. RECA STATES HER ONLY NEED IS SHE WANTS TO MOVE TO [facility]. SHE REPORTS [facility] MESSES HER MEDICATIONS UP, THEY DO NOT ORDER IN A TIMELY MANOR. SHE GAVE EXAMPLE SHE WENT WITHOUT HER GABAPENTIN FOR A WEEK. SHE DENIES ANY OTHER NEEDS AT THIS TIME. POLST ON FILE STATES [facility] FULL MEASURES. PT WANTS THESE MEASURES IN PLACE.
--- NOTE | 2024-05-28 18:07 | NUR ---
END OF SHIFT SUMMARY: A&Ox3. DOES NOT UTILIZE CALL LIGHT BUT IS ABLE TO ADVOCATE NEEDS TO STAFF WHEN PRESENT. WHEELCHAIR AT BASELINE AND REQUIRES LIFT FOR TRANSFERS. INCONTIENT OF BOWEL AND BLADDER c SEVERAL BOUTS OF DIARRHEA TODAY. REFERRAL SUBMITTED TO [facility] HER SISTER/POA DOES NOT WANT HER RETURNING TO [facility]. BLOOD SUGARS ELEVATED TODAY AND Tx c CORRECTIVE SS INSULIN. BED IN LOWEST POSITION, CALL LIGHT WITHIN REACH, ALL NEEDS MET. REPORT TO ONCOMING NURSE
[2024-05-28 20:31] VITALS: BP 153/68
[2024-05-29 01:48] VITALS: BP 160/65
[2024-05-29 06:10] LABS: BASOPHILS ABSOLUTE AUTO 0.05 K/mm3 (0.00-0.23); BASOPHILS PERCENT AUTO 1 % (0-2); EOSINOPHILS PERCENT AUTO 4 % (0-6); Hematocrit 33.1 % (33.0-51.0); Hemoglobin 11.4 g/dL (11.5-16.0); IMMATURE GRAN ABSOLUTE AUTO 0.05 K/mm3 (0.00-0.10); IMMATURE GRAN PERCENT AUTO 1 % (0-1); LYMPHOCYTES ABSOLUTE AUTO 2.06 K/mm3 (0.84-5.20); LYMPHOCYTES PERCENT AUTO 41 % (21-46); MONOCYTES ABSOLUTE AUTO 0.58 K/mm3 (0.16-1.47); MONOCYTES PERCENT AUTO 12 % (4-13); Mean Corpuscular HGB 28.1 pg (26.0-34.0); Mean Corpuscular HGB Conc 34.4 g/dL (31.5-36.5); Mean Corpuscular Volume 82 fL (80-100); NEUTROPHILS ABSOLUTE AUTO 2.06 K/mm3 (1.96-9.15); NEUTROPHILS PERCENT AUTO 41 % (41-73); RDW Coefficient Variation 12.8 % (11.7-14.2); RDW Standard Deviation 38.7 fL (35.1-46.3); Red Blood Cell Count 4.06 M/mm3 (3.80-5.20)
[2024-05-29 06:19] LABS: Bun/Creatinine Ratio 18.4 (12.0-20.0); Calcium, Blood 9.1 mg/dL (8.5-10.1); Creatinine, Blood 1.96 mg/dL (0.40-1.00)
[2024-05-29 06:25] LABS: Mean Platelet Volume 9.8 fL (9.1-12.4); Platelet Count 231 K/mm3 (150-400)
[2024-05-29 07:15] VITALS: BP 174/72
--- NOTE | 2024-05-29 12:00 | NUR ---
CALLED DR. TROY WITH A BLOOD SUGAR OF 369; 5 UNITS FOR COVERAGE BASED ON LOW CORRECTION SCALE; NOTIFIED DR. TROY THAT THE PATIENT HAD HER CONSISENT CARB DIET FOR BREAKFAST; PER DR. TROY TO GIVE THE PATIENT 15 UNITS OF SHORT ACTING INSULIN; SHE WILL ADVISE CORRECTION SCALE AND TO RECHECK BLOOD SUGAR IN 2 HOURS.
[2024-05-29 16:30] VITALS: BP 151/62
[2024-05-29] MEDS ORDERED: Insulin Regular 100 UNIT/ML 10ML Vial SC SCH (16:30)
--- NOTE | 2024-05-29 17:29 | NUR ---
SHIFT SUMMARY: NO EVENTS OF CHANGES WITH THE PATIENT THROUGHOUT THE SHIFT; THERE WERE SOME CHANGES TO HER INSULIN DOSES DUE TO ELEVATED BLOOD SUGARS. SHE IS IN BED, DAUGHTER AT BEDSIDE, NO SIGNS OR SYMPTOMS OF DISTRESS, NO EVENTS ON TELE, PLAN OF CARE ONGOING.
[2024-05-29 20:20] VITALS: BP 122/56
[2024-05-29] MEDS ORDERED: Insulin Glargine-Yfgn 100 Unit/mL 3 ML SYR SC SCH (21:00)
[2024-05-30 00:43] VITALS: BP 118/52
[2024-05-30 05:34] VITALS: BP 136/70
[2024-05-30 06:40] LABS: Bun/Creatinine Ratio 19.8 (12.0-20.0); Creatinine, Blood 2.12 mg/dL (0.40-1.00); Potassium, Blood 4.3 mmol/L (3.5-5.5)
[2024-05-30 08:00] VITALS: BP 164/75
[2024-05-30] MEDS ORDERED: NS 1,000 ML IV SCH (15:35)
[2024-05-30 15:58] VITALS: BP 119/58
[2024-05-30 19:17] VITALS: BP 140/60
--- NOTE | 2024-05-30 19:47 | NUR ---
PT IS A&0 X3-4, SLEEPY IN THE MORNING. ROOM AIR. TELE IS 78, SINUC WITH BBB. ISO FOR FLU A. SHE HAS AN OCCASSIONAL COUGH NOTED. RIGHT SIDE HEMIPARESIS FOLLOWING STROKE. GOOD APPETITE, FEEDS HERSELF WITH LEFT HAND. INCONTINENT IN ATTENDS. CAN USE CALL LIGHT NEEDED. SPEECH IS SLOW, PT IS ABLE TO EXPRESS HER NEEDS. SLEPT MUCH OF THE SHIFT BETWEEN MEALS.
[2024-05-30 23:53] VITALS: BP 131/56
[2024-05-31 04:21] VITALS: BP 143/67
--- NOTE | 2024-05-31 16:49 | NUR ---
PT WAS SLEEPY AND LETHARGIC FOR MOST OF THE DAY. PT HAD A BEDSIDE SWALLOW EVAL, SEE NOTES FOR DETAILS WITH A FIOLLOW UP TOMORROW. NEW DIET ORDERS AND PROTOCOL IN PLACE. PT HAD NO C/O PAIN, SOB, OR CHEST PAIN.
[2024-05-31 19:16] LABS: Albumin, Blood 2.9 g/dL (3.4-5.0); Anion Gap 11 mmol/L (3-11); Blood Urea Nitrogen 46 mg/dL (8-24); Bun/Creatinine Ratio 20.4 (12.0-20.0); CO2, Blood 27 mmol/L (21-32); Calcium, Blood 9.2 mg/dL (8.5-10.1); Chloride, Blood 105 mmol/L (98-108); Creatinine, Blood 2.25 mg/dL (0.40-1.00); Glomerular Filtration Rate 23 (60-); Glucose, Blood 174 mg/dL (70-99); Phosphorus, Blood 4.9 mg/dL (2.5-4.9); Potassium, Blood 3.9 mmol/L (3.5-5.5); Sodium, Blood 139 mmol/L (136-145)
[2024-05-31 19:46] LABS: Creatinine, Urine Random 46.6 mg/dL (27.00-270.00)
[2024-05-31 20:09] VITALS: BP 138/62
[2024-05-31] MEDS ORDERED: NS 1,000 ML IV SCH (21:00)
[2024-05-31 23:38] LABS: Source, Urine Straight Cath
[2024-05-31 23:43] LABS: Bilirubin, Urine Neg (Neg); Blood, Urine Neg (Neg); Glucose Qualitative, Urine Neg (Neg); Ketones, Urine Neg (Neg); Leukocyte Esterase, Urine Neg (Neg); Nitrite, Urine Neg (Neg); Protein, Urine 3+ (Neg); Specific Gravity, Urine 1.015 (1.003-1.022); Urobilinogen, Urine NORM (Normal)
[2024-05-31 23:49] LABS: Amorphous Light (0-Heavy); Appearance, Urine Clear (Clear); Bacteria Rare /hpf; Color, Urine Pale Yellow (P-Yellow); Granular Casts 0-2 /lpf (0); Red Blood Cells, Urine Not Seen /hpf (0-2); Squamous Epithelial Cells Rare /hpf (Few); White Blood Cells, Urine Not Seen /hpf (0-5)
[2024-05-31 23:56] VITALS: BP 148/65
[2024-06-01 04:10] VITALS: BP 134/56
[2024-06-01 04:36] LABS: BASOPHILS ABSOLUTE AUTO 0.07 K/mm3 (0.00-0.23); BASOPHILS PERCENT AUTO 1 % (0-2); EOSINOPHILS ABSOLUTE AUTO 0.41 K/mm3 (0.00-0.68); EOSINOPHILS PERCENT AUTO 4 % (0-6); Hematocrit 31.8 % (33.0-51.0); Hemoglobin 10.7 g/dL (11.5-16.0); IMMATURE GRAN ABSOLUTE AUTO 0.11 K/mm3 (0.00-0.10); IMMATURE GRAN PERCENT AUTO 1 % (0-1); LYMPHOCYTES ABSOLUTE AUTO 2.48 K/mm3 (0.84-5.20); LYMPHOCYTES PERCENT AUTO 26 % (21-46); MONOCYTES ABSOLUTE AUTO 0.86 K/mm3 (0.16-1.47); MONOCYTES PERCENT AUTO 9 % (4-13); Mean Corpuscular HGB 27.9 pg (26.0-34.0); Mean Corpuscular HGB Conc 33.6 g/dL (31.5-36.5); Mean Corpuscular Volume 83 fL (80-100); Mean Platelet Volume 9.7 fL (9.1-12.4); NEUTROPHILS ABSOLUTE AUTO 5.73 K/mm3 (1.96-9.15); NEUTROPHILS PERCENT AUTO 59 % (41-73); Platelet Count 290 K/mm3 (150-400); RDW Standard Deviation 39.2 fL (35.1-46.3); Red Blood Cell Count 3.83 M/mm3 (3.80-5.20); White Blood Cell Count 9.66 K/mm3 (4.00-11.30)
[2024-06-01 05:03] LABS: Magnesium, Blood 1.7 mg/dL (1.6-2.4)
[2024-06-01 05:06] LABS: Alanine Aminotransfer (ALT/SGP 31 U/L (12-78); Albumin, Blood 2.6 g/dL (3.4-5.0); Albumin/Globulin Ratio 0.7 (0.8-1.8); Alk Phos 60 U/L (50-136); Anion Gap 11 mmol/L (3-11); Aspartate Aminotrans (AST/SGOT 23 U/L (12-37); Bilirubin, Direct <0.1 mg/dL (0.0-0.3); Bilirubin, Indirect Unable to Calculate mg/dL (0.1-0.7); Bilirubin, Total 0.2 mg/dL (0.1-1.0); Blood Urea Nitrogen 43 mg/dL (8-24); Bun/Creatinine Ratio 21.4 (12.0-20.0); CO2, Blood 23 mmol/L (21-32); Calcium, Blood 8.4 mg/dL (8.5-10.1); Chloride, Blood 108 mmol/L (98-108); Creatinine, Blood 2.01 mg/dL (0.40-1.00); Globulin, Blood 3.6 g/dL (2.2-4.0); Glomerular Filtration Rate 26 (60-); Glucose, Blood 171 mg/dL (70-99); Phosphorus, Blood 3.8 mg/dL (2.5-4.9); Potassium, Blood 3.8 mmol/L (3.5-5.5); Sodium, Blood 138 mmol/L (136-145); Total Protein, Blood 6.2 g/dL (6.4-8.2)
[2024-06-01 07:54] VITALS: BP 119/62
[2024-06-01 16:20] VITALS: BP 123/58
--- NOTE | 2024-06-01 16:34 | NUR ---
NO CHANGES IN PT STATUS TODAY. NO C/O PAIN, SOB
[2024-06-01] MEDS ORDERED: NS 1,000 ML IV SCH (19:25)
[2024-06-01 19:43] VITALS: BP 148/63
[2024-06-01 23:52] VITALS: BP 165/59
[2024-06-02 04:03] VITALS: BP 152/67
[2024-06-02 05:13] LABS: BASOPHILS ABSOLUTE AUTO 0.05 K/mm3 (0.00-0.23); BASOPHILS PERCENT AUTO 1 % (0-2); EOSINOPHILS ABSOLUTE AUTO 0.42 K/mm3 (0.00-0.68); EOSINOPHILS PERCENT AUTO 5 % (0-6); Hematocrit 30.6 % (33.0-51.0); Hemoglobin 10.1 g/dL (11.5-16.0); IMMATURE GRAN ABSOLUTE AUTO 0.14 K/mm3 (0.00-0.10); IMMATURE GRAN PERCENT AUTO 2 % (0-1); LYMPHOCYTES ABSOLUTE AUTO 2.23 K/mm3 (0.84-5.20); LYMPHOCYTES PERCENT AUTO 24 % (21-46); MONOCYTES ABSOLUTE AUTO 0.98 K/mm3 (0.16-1.47); MONOCYTES PERCENT AUTO 11 % (4-13); Mean Corpuscular HGB 27.4 pg (26.0-34.0); Mean Corpuscular Volume 83 fL (80-100); Mean Platelet Volume 9.3 fL (9.1-12.4); NEUTROPHILS ABSOLUTE AUTO 5.33 K/mm3 (1.96-9.15); NEUTROPHILS PERCENT AUTO 58 % (41-73); Platelet Count 288 K/mm3 (150-400); RDW Standard Deviation 39.5 fL (35.1-46.3); Red Blood Cell Count 3.68 M/mm3 (3.80-5.20); White Blood Cell Count 9.15 K/mm3 (4.00-11.30)
[2024-06-02 05:49] LABS: Albumin, Blood 2.6 g/dL (3.4-5.0); Albumin/Globulin Ratio 0.8 (0.8-1.8); Bilirubin, Total 0.2 mg/dL (0.1-1.0); Bun/Creatinine Ratio 21.3 (12.0-20.0); Calcium, Blood 8.3 mg/dL (8.5-10.1); Creatinine, Blood 1.74 mg/dL (0.40-1.00); Globulin, Blood 3.3 g/dL (2.2-4.0); Potassium, Blood 3.9 mmol/L (3.5-5.5); Total Protein, Blood 5.9 g/dL (6.4-8.2)
[2024-06-02 07:35] VITALS: BP 107/47
[2024-06-02 11:30] VITALS: BP 153/58
[2024-06-02] MEDS ORDERED: HUMULIN R100 UNIT/2 SC (13:37)
--- NOTE | 2024-06-02 15:07 | NUR ---
PT WILL BE DISCHARGED TO FACILTY VIA WHEELCHAIR. PT HAS ALL PIV'S REMOVED AND TELE. PT HAS NO QUESTIONS OR COCNERNS AT THIS TIME.
== END 2024-06-02 15:34 | DRG 193 ==
LOC: ER 13:18 → MEDS 16:18
PROVIDERS: Emergency Medicine; Internal Medicine; Internal Medicine Nephrology; ADMIT Family Medicine
DX: J10.00 Influenza due to other identified influenza virus with unspecified type of pneumonia (principal); G92.8 Other toxic encephalopathy; E87.1 Hypo-osmolality and hyponatremia; N17.9 Acute kidney failure, unspecified; N25.81 Secondary hyperparathyroidism of renal origin; I69.951 Hemiplegia and hemiparesis following unspecified cerebrovascular disease affecting right dominant side; J44.0 Chronic obstructive pulmonary disease with (acute) lower respiratory infection; D63.1 Anemia in chronic kidney disease; N18.30 Chronic kidney disease, stage 3 unspecified; E88.09 Other disorders of plasma-protein metabolism, not elsewhere classified; E11.22 Type 2 diabetes mellitus with diabetic chronic kidney disease; I12.9 Hypertensive chronic kidney disease with stage 1 through stage 4 chronic kidney disease, or unspecified chronic kidney disease; F41.9 Anxiety disorder, unspecified; F32.A Depression, unspecified; Z90.710 Acquired absence of both cervix and uterus; Z98.890 Other specified postprocedural states; Z87.81 Personal history of (healed) traumatic fracture; Z79.2 Long term (current) use of antibiotics; Z79.02 Long term (current) use of antithrombotics/antiplatelets; Z79.890 Hormone replacement therapy; Z79.4 Long term (current) use of insulin; Z79.899 Other long term (current) drug therapy; Z88.0 Allergy status to penicillin; Z88.8 Allergy status to other drugs, medicaments and biological substances; Z88.2 Allergy status to sulfonamides; Z88.1 Allergy status to other antibiotic agents; Z87.891 Personal history of nicotine dependence
CPT/HCPCS: 0241U; 36415; 71045; 74230; 76770; 80048; 80053; 80069; 80202; 81001; 82248; 82550; 82570; 82947; 83036; 83605; 83735; 84100; 84145; 84300; 84540; 85025; 87040; 87077; 87086; 92526; 92610; 92611; 93005; 93010; 93308; 93321; 94640; 94664; 94760; 96365; 99285-25; A9270; J1650; J1815; J1956; J3370; J7030; J7040; J7050; J7120

== ENCOUNTER 2025-01-24 09:22 | Emergency (ER) | payer OTHER ==
[~2025-01-24] VITALS: Ht 162.6 cm; Wt 72.6 kg
[~2025-01-24 09:22] MED LIST changes: +CALCIUM 600-VI1 EAC4 PO; +IPRAT-ALBUT 0.5-3 ML INH; +LACT10SY PO; +MIRALAX119 G2 PO; +NALOXONE HCL4 MG; +PROBIOTIC1 EA13 PO; +Percocet 5-3251 EACH PO; +TRELEGY ELLIPT1 EAC1 INH
[2025-01-24 09:55] LABS: BASOPHILS ABSOLUTE AUTO 0.12 K/mm3 (0.00-0.23); BASOPHILS PERCENT AUTO 1 % (0-2); EOSINOPHILS ABSOLUTE AUTO 0.70 K/mm3 (0.00-0.68); EOSINOPHILS PERCENT AUTO 4 % (0-6); Hematocrit 34.4 % (33.0-51.0); Hemoglobin 11.6 g/dL (11.5-16.0); IMMATURE GRAN ABSOLUTE AUTO 0.10 K/mm3 (0.00-0.10); IMMATURE GRAN PERCENT AUTO 1 % (0-1); LYMPHOCYTES ABSOLUTE AUTO 2.38 K/mm3 (0.84-5.20); LYMPHOCYTES PERCENT AUTO 15 % (21-46); MONOCYTES ABSOLUTE AUTO 1.36 K/mm3 (0.16-1.47); MONOCYTES PERCENT AUTO 9 % (4-13); Mean Corpuscular HGB Conc 33.7 g/dL (31.5-36.5); Mean Corpuscular Volume 79 fL (80-100); NEUTROPHILS ABSOLUTE AUTO 11.43 K/mm3 (1.96-9.15); NEUTROPHILS PERCENT AUTO 71 % (41-73); NRBC ABSOLUTE 0.00 K/mm3 (0.00-0.02); NRBC Auto 0.0 /100 WBC (0.0-0.2); Platelet Count 329 K/mm3 (150-400); RDW Coefficient Variation 14.2 % (11.7-14.2); RDW Standard Deviation 41.0 fL (35.1-46.3)
[2025-01-24 10:34] LABS: Anion Gap 8.0 mmol/L (3-11); Blood Urea Nitrogen 38.0 mg/dL (8-24); CO2, Blood 29.0 mmol/L (21-32); Calcium, Blood 9.4 mg/dL (8.5-10.1); Chloride, Blood 105.0 mmol/L (98-108); Creatinine, Blood 1.98 mg/dL (0.40-1.00); Glucose, Blood 183.0 mg/dL (70-99); Magnesium, Blood 1.8 mg/dL (1.6-2.4); Potassium, Blood 3.8 mmol/L (3.5-5.5); Sodium, Blood 138.0 mmol/L (136-145); Thyroid Stimulating Hormone 2.68 uIU/mL (0.360-4.800)
[2025-01-24 10:50] LABS: Source, Urine Clean Catch
[2025-01-24 10:51] LABS: Influenza A, PCR NEGATIVE (NEGATIVE); Influenza B, PCR NEGATIVE (NEGATIVE); Resp Syncytial Virus, PCR NEGATIVE (NEGATIVE); SARS-Cov-2 (COVID-19) PCR, MMC NEGATIVE (NEGATIVE)
[2025-01-24] MEDS ORDERED: NS 1,000 ML IV SCH (11:00)
[2025-01-24 11:50] LABS: Bilirubin, Urine Neg (Neg); Glucose Qualitative, Urine Neg (Neg); Ketones, Urine Neg (Neg); Leukocyte Esterase, Urine 3+ (Neg); Protein, Urine 3+ (Neg); Specific Gravity, Urine 1.020 (1.003-1.022); Urobilinogen, Urine NORM (Normal)
[2025-01-24 12:09] LABS: Color, Urine Pale Yellow (P-Yellow)
[2025-01-24 12:11] LABS: White Blood Cells, Urine 50-100 /hpf (0-5)
[2025-01-24 14:00] VITALS: BP 135/51
== END 2025-01-24 14:15 | disposition home or self-care (01) ==
LOC: ER 09:22
PROVIDERS: Emergency Medicine
DX: N39.0 Urinary tract infection, site not specified (principal); J44.9 Chronic obstructive pulmonary disease, unspecified; E11.9 Type 2 diabetes mellitus without complications; I10 Essential (primary) hypertension; E03.9 Hypothyroidism, unspecified; I69.920 Aphasia following unspecified cerebrovascular disease; I69.951 Hemiplegia and hemiparesis following unspecified cerebrovascular disease affecting right dominant side; Z88.0 Allergy status to penicillin; Z88.1 Allergy status to other antibiotic agents; Z88.2 Allergy status to sulfonamides; Z88.8 Allergy status to other drugs, medicaments and biological substances; Z79.899 Other long term (current) drug therapy; Z79.890 Hormone replacement therapy; Z79.4 Long term (current) use of insulin; Z87.891 Personal history of nicotine dependence
CPT/HCPCS: 51701; 71045; 80048; 81001; 82607; 83735; 84439; 84443; 85025; 87637; 93005; 93010; 99285-25; A9270; J7030

== ENCOUNTER 2025-03-08 13:49 | Inpatient (IN) | payer OTHER ==
[~2025-03-08] VITALS: Ht 167.6 cm; Wt 96.1 kg
[2025-03-08 14:57] LABS: BASOPHILS ABSOLUTE AUTO 0.10 K/mm3 (0.00-0.23); BASOPHILS PERCENT AUTO 1 % (0-2); EOSINOPHILS ABSOLUTE AUTO 0.22 K/mm3 (0.00-0.68); EOSINOPHILS PERCENT AUTO 2 % (0-6); Hematocrit 38.5 % (33.0-51.0); Hemoglobin 12.7 g/dL (11.5-16.0); IMMATURE GRAN ABSOLUTE AUTO 0.04 K/mm3 (0.00-0.10); IMMATURE GRAN PERCENT AUTO 0 % (0-1); LYMPHOCYTES ABSOLUTE AUTO 2.04 K/mm3 (0.84-5.20); LYMPHOCYTES PERCENT AUTO 20 % (21-46); MONOCYTES ABSOLUTE AUTO 1.09 K/mm3 (0.16-1.47); MONOCYTES PERCENT AUTO 11 % (4-13); Mean Corpuscular HGB Conc 33.0 g/dL (31.5-36.5); Mean Corpuscular Volume 80 fL (80-100); NEUTROPHILS ABSOLUTE AUTO 6.52 K/mm3 (1.96-9.15); NEUTROPHILS PERCENT AUTO 65 % (41-73); NRBC ABSOLUTE 0.00 K/mm3 (0.00-0.02); NRBC Auto 0.0 /100 WBC (0.0-0.2); Platelet Count 328 K/mm3 (150-400); RDW Coefficient Variation 13.5 % (11.7-14.2); RDW Standard Deviation 39.2 fL (35.1-46.3)
[2025-03-08 15:16] LABS: Alanine Aminotransfer (ALT/SGP 26.0 U/L (12-78); Albumin, Blood 3.1 g/dL (3.4-5.0); Albumin/Globulin Ratio 0.6 (0.8-1.8); Anion Gap 9.0 mmol/L (3-11); Aspartate Aminotrans (AST/SGOT 19.0 U/L (12-37); Bilirubin, Total 0.3 mg/dL (0.1-1.0); Blood Urea Nitrogen 30.0 mg/dL (8-24); CO2, Blood 27.0 mmol/L (21-32); Calcium, Blood 8.5 mg/dL (8.5-10.1); Chloride, Blood 107.0 mmol/L (98-108); Creatinine, Blood 1.94 mg/dL (0.40-1.00); Globulin, Blood 4.8 g/dL (2.2-4.0); Glucose, Blood 64.0 mg/dL (70-99); Potassium, Blood 3.7 mmol/L (3.5-5.5); Sodium, Blood 139.0 mmol/L (136-145); Total Protein, Blood 7.9 g/dL (6.4-8.2)
[2025-03-08 15:43] LABS: Source, Urine Straight Cath
[2025-03-08 15:48] LABS: Bilirubin, Urine Neg (Neg); Color, Urine Yellow (P-Yellow); Glucose Qualitative, Urine Neg (Neg); Ketones, Urine Neg (Neg); Leukocyte Esterase, Urine 3+ (Neg); Protein, Urine 4+ (Neg); Specific Gravity, Urine 1.005 (1.003-1.022); Urobilinogen, Urine NORM (Normal)
[2025-03-08] MEDS ORDERED: NS 1,000 ML IV SCH (15:50)
[2025-03-08 16:05] LABS: White Blood Cells, Urine TNTC /hpf (0-5)
[2025-03-08 16:08] LABS: pH Blood Venous 7.42 (7.34-7.37)
[2025-03-08] MEDS ORDERED: Vancomycin (Pharmacy Consult) IV PRN (16:10)
[2025-03-08] MEDS ORDERED: HUMALOG100 UNIT/1 SC (16:14)
[2025-03-08 16:57] LABS: Influenza A, PCR NEGATIVE (NEGATIVE); Influenza B, PCR NEGATIVE (NEGATIVE); Resp Syncytial Virus, PCR NEGATIVE (NEGATIVE); SARS-Cov-2 (COVID-19) PCR, MMC NEGATIVE (NEGATIVE)
[2025-03-08] MEDS ORDERED: Dextrose 50% 50 ML Vial IV PRN (17:25)
[2025-03-08] MEDS ORDERED: D5W-1/2NS 1,000 ML IV SCH ×2 (17:25→21:50)
[2025-03-08] MEDS ORDERED: FLU VACC TS2025(65UP)/MF59C/PF 45 MCG/0.5 ML SYRINGE IM SCH (17:25)
[2025-03-08] MEDS ORDERED: LevoFLOXacin 750 MG/D5W 150ML 150 ML IV SCH (18:00)
[2025-03-08 18:46] VITALS: BP 145/74
[2025-03-08] MEDS ORDERED: DiphenhydrAMINE HCl 50 MG/ML 1ML Vial IV ONE (18:55)
--- NOTE | 2025-03-08 20:11 | NUR ---
PATIENT WAS GIVEN BENADRYL BY DAY SHIFT RN PRIOR TO ASSUMING CARE. PATIENT IS DROWSY, AWAKES TO VERBAL STIMULI, REDNESS TO SKIN IS IMPROVING. PATIENT RECEIVED UNKNOWN DOSE OF LEVAQUIN. SPOKE WITH PHARMACIST, WHO SUGGESTED REDUCING DOSAGE TO 500MG IV NOW AND RESUMING REGULAR DOSE OF 750MG IV NEXT TIME. SPOKE WITH GLORIA BLOOD TESTER, ORDER GIVEN TO PROCEED WITH PHARMACISTS RECOMMENDATION.
[2025-03-08 20:52] VITALS: BP 172/72
[2025-03-08 21:18] VITALS: BP 158/68
--- NOTE | 2025-03-08 21:30 | NUR ---
LEVAQUIN STARTED BY BREAK NURSE. THIS RN TO ROOM. PATIENT'S SKIN ON FACE AND NECK APPEAR TO BE TURNING MORE RED THAN PRIOR, WHICH WAS MOSTLY RESOLVED. VSS. LEVAQUIN STOPPED AND HOSPITAL RESIDENT NOTFIED. CONTINUOUS CARDIAC AND SPO2 MONITORING IN PROGRESS.
--- NOTE | 2025-03-08 21:47 | NUR ---
CBG 230. DR CHOW NOTIFIED. T/O TO DECREASE RATE IVF (D5 1/2 NS) TO 75ML/HR AND MONITOR CBG Q6HR.
[2025-03-08 23:31] VITALS: BP 141/63
[2025-03-09] VITALS (10 sets, daily range): BP systolic 129–155; BP diastolic 60–70
--- NOTE | 2025-03-09 00:35 | NUR ---
RESIDENT NOTIFIED OF RECENT CBG 281. D5 1/2NS INFUSING AT 75ML/HR - DISCUSSED WITH RESIDENT. ANTICIPATE ORDERS TO CHANGE IVF.
[2025-03-09] MEDS ORDERED: NS 1,000 ML IV SCH (00:50)
[2025-03-09] MEDS ORDERED: Insulin Human Lispro 100 Units/ML 3ML Syringe SC SCH (00:55)
[2025-03-09 05:02] LABS: BASOPHILS ABSOLUTE AUTO 0.06 K/mm3 (0.00-0.23); BASOPHILS PERCENT AUTO 1 % (0-2); EOSINOPHILS ABSOLUTE AUTO 0.04 K/mm3 (0.00-0.68); EOSINOPHILS PERCENT AUTO 1 % (0-6); Hematocrit 32.8 % (33.0-51.0); Hemoglobin 10.8 g/dL (11.5-16.0); IMMATURE GRAN ABSOLUTE AUTO 0.05 K/mm3 (0.00-0.10); IMMATURE GRAN PERCENT AUTO 1 % (0-1); LYMPHOCYTES ABSOLUTE AUTO 1.10 K/mm3 (0.84-5.20); LYMPHOCYTES PERCENT AUTO 14 % (21-46); MONOCYTES ABSOLUTE AUTO 0.66 K/mm3 (0.16-1.47); MONOCYTES PERCENT AUTO 8 % (4-13); Mean Corpuscular HGB Conc 32.9 g/dL (31.5-36.5); Mean Corpuscular Volume 79 fL (80-100); NEUTROPHILS ABSOLUTE AUTO 6.14 K/mm3 (1.96-9.15); NEUTROPHILS PERCENT AUTO 76 % (41-73); NRBC ABSOLUTE 0.00 K/mm3 (0.00-0.02); NRBC Auto 0.0 /100 WBC (0.0-0.2); Platelet Count 246 K/mm3 (150-400); RDW Coefficient Variation 13.8 % (11.7-14.2); RDW Standard Deviation 39.7 fL (35.1-46.3)
[2025-03-09 05:20] LABS: Anion Gap 9.0 mmol/L (3-11); Blood Urea Nitrogen 26.0 mg/dL (8-24); CO2, Blood 24.0 mmol/L (21-32); Calcium, Blood 7.2 mg/dL (8.5-10.1); Chloride, Blood 111.0 mmol/L (98-108); Creatinine, Blood 1.68 mg/dL (0.40-1.00); Glucose, Blood 259.0 mg/dL (70-99); Potassium, Blood 3.6 mmol/L (3.5-5.5); Sodium, Blood 140.0 mmol/L (136-145)
--- NOTE | 2025-03-09 06:20 | NUR ---
SHIFT SUMMARY PATIENT ADMITTED TO UNIT JUST PRIOR TO SHIFT CHANGE. PATIENT WAS GIVEN BENADRYL IV PRIOR TO ASSUMING CARE FOR REACTION TO IV ABX. LEVAQUIN WAS RESTARTED AT LOWER DOSAGE. PATIENT'S SKIN BECAME RED SHORTLY AFTER STARTING LEVAQUIN SO IT WAS ABRUPTLY STOPPED. REDNESS RESOLVED WITHOUT INTERVENTION. NO OTHER SYMPTOMS. PATIENT SLEPT MOST OF NIGHT. PATIENT REPOSITIONED FREQUENTLY BY STAFF REQUIRNG MAXIMUM ASSISTANCE. IVF CHANGED TO NS @ 100ML/HR. GLUCOSE LEVELS ELEVATED AND REPORTED TO RESIDENT. PATIENT NOT ABLE TO VOID ON OWN WITH PURE WICK IN PLACE. SHE REPORTS SHE HAS NO CONTROL OF BLADDER. BLADDER SCAN DONE TWICE DURING THE NIGHT. STRAIGHT CATH DONE LATE IN MORNING. APPROX 425ML CLEAR YELLOW URINE DRAINED FROM BLADDER. PATIENT ALERT THIS MORNING AND NOW WATCHING TV. ABLE TO RESPOND TO QUESTIONS WITH ONE WORD SENTENCES AND HEAD GESTURES. PLAN OF CARE ONGOING.
[2025-03-09] MEDS ORDERED: Enoxaparin 30 MG/0.3 ML SYR SC SCH (09:00)
[2025-03-09] MEDS ORDERED: Enoxaparin 40 MG/0.4 ML SYR SC SCH (09:00)
--- NOTE | 2025-03-09 09:25 | NUR ---
UPDATE: ASSUMED CARE AT APPROX 0720. PT MUCH MORE ALERT TODAY. ALERT TO SELF, PLACE, AND TIME. PERFORMED IDA SWALLOW EVAL AT BEDSIDE THIS AM, PT UNABLE TO SWALLOW WITHOUT COUGHING. SPEECH THERAPY ORDER PLACED. PT LYING IN BED, CALL IN REACH.
--- NOTE | 2025-03-09 14:08 | NUR ---
UPDATE: PT HAS NOT VOIDED URINE SINCE BEING STRAIGHT CATHED THIS MORNING ON NOC SHIFT. BLADDER SCANNED PT FOR A TOTAL OF 297 ML OF URINE. EDUCATED PT ON HAVING TO STRAIGHT CATH IF UNABLE TO VOID WITHIN THE NEXT COUPLE OF HOURS. PT STATED "I DONT WANT ANYTHING INVASIVE AGAIN". ENCOURAGED PT TO CONTINUE TRYING TO VOID ON HER OWN. PT STATED "IF I PEE AT HOME, ITS IN MY DIAPER". PUREWICK TO SUCTION, BRIEF CURRENTLY DRY/CLEAN. PT LYING IN BED, CALL IN REACH.
--- NOTE | 2025-03-09 15:57 | NUR ---
SHIFT SUMMARY: PT A/O X4, ABLE TO MAKE NEEDS KNOWN. FLAT AFFECT, AND RELUCTANT TO CARE AT TIMES. RIGHT SIDED DEFECITS PRESENT FROM PREVIOUS CVAS. PT STATES SHE IS WHEELCHAIR BOUND AT [facility]. SPEECH THERAPY ABLE TO WORK WITH PATIENT TODAY, SEE ORDERS. PT ON ROOM AIR, SATS >95%, DENIES SOB. NSR 90s, DENIES CHEST PAIN/PRESSURE. ALL OTHER VITAL SIGNS STABLE. PT STILL UNABLE TO VOID URINE ANY URINE THIS SHIFT. BOWEL MOVEMENT SMEAR SIZED THIS MORNING. PT LYING IN BED, CALL WITHIN REACH. WILL REPORT TO ONCOMING RN.
[2025-03-09] MEDS ORDERED: Ipratropium Bromide INH 0.02% 0.5 mg/2.5ML Vial INH SCH (16:15)
[2025-03-09] MEDS ORDERED: Formoterol/Mometasone MDI 5/200 mcg 13 GM INH SCH (16:15)
--- NOTE | 2025-03-09 18:23 | NUR ---
UPDATE: PT HAD AN INCONT VOID OF URINE IN BRIEF THIS AFTERNOON. BLADDER SCANNED PT AND GOT 197 ML FOLLOWING VOID. NO STRAIGHT CATH AT THIS TIME. PUREWICK REPLACED ON PT, CONNECTED TO SUCTION. WILL REPORT TO ONCOMING RN.
[2025-03-09] MEDS ORDERED: Insulin Glargine 100 Unit/ML 3 ML SYR SC SCH (21:00)
--- NOTE | 2025-03-09 23:06 | NUR ---
PCU 10 TRANSFER. REPORT TAKEN FROM KIMBER ODONNELL. PATIENT BEDS SWITCHED OUT. AXO X3 AND BEDREST. DENIES CHEST PAIN, SOB, AND N/V. YANNAWICK REATTACHED. PERSONAL BELONGINGS WITH PATIENT. RESTING IN BED AND ASKED FOR TV ON AND TURNED TO NEWS CHANNEL. [facility].
--- NOTE | 2025-03-10 04:05 | NUR ---
SHIFT SUMMARY PATIENT HAD NO ACUTE CHANGES. AXOX 3 AND BEDREST. DENIES CHEST PAIN, SOB, AND N/V. VSS/AFEBRILE. PIVS INTACT. ON ROOM AIR. PUREWICK IN PLACE. WATCHED TV ON/OFF. CALL LIGHT IN REACH. BED IN LOWEST POSITION. WILL CONTINUE TO MONITOR UNTIL DAY SHIFT NURSE ASSUMES CARE.
[2025-03-10 05:19] VITALS: BP 138/64
[2025-03-10 05:37] LABS: BASOPHILS ABSOLUTE AUTO 0.07 K/mm3 (0.00-0.23); BASOPHILS PERCENT AUTO 1 % (0-2); EOSINOPHILS ABSOLUTE AUTO 0.86 K/mm3 (0.00-0.68); EOSINOPHILS PERCENT AUTO 13 % (0-6); Hematocrit 33.0 % (33.0-51.0); Hemoglobin 10.8 g/dL (11.5-16.0); IMMATURE GRAN ABSOLUTE AUTO 0.01 K/mm3 (0.00-0.10); IMMATURE GRAN PERCENT AUTO 0 % (0-1); LYMPHOCYTES ABSOLUTE AUTO 1.55 K/mm3 (0.84-5.20); LYMPHOCYTES PERCENT AUTO 24 % (21-46); MONOCYTES ABSOLUTE AUTO 0.76 K/mm3 (0.16-1.47); MONOCYTES PERCENT AUTO 12 % (4-13); Mean Corpuscular HGB Conc 32.7 g/dL (31.5-36.5); Mean Corpuscular Volume 80 fL (80-100); NEUTROPHILS ABSOLUTE AUTO 3.30 K/mm3 (1.96-9.15); NEUTROPHILS PERCENT AUTO 50 % (41-73); NRBC ABSOLUTE 0.00 K/mm3 (0.00-0.02); NRBC Auto 0.0 /100 WBC (0.0-0.2); Platelet Count 253 K/mm3 (150-400); RDW Coefficient Variation 13.6 % (11.7-14.2); RDW Standard Deviation 39.4 fL (35.1-46.3)
[2025-03-10 05:58] LABS: Anion Gap 7.0 mmol/L (3-11); Blood Urea Nitrogen 25.0 mg/dL (8-24); CO2, Blood 24.0 mmol/L (21-32); Calcium, Blood 7.5 mg/dL (8.5-10.1); Chloride, Blood 110.0 mmol/L (98-108); Creatinine, Blood 1.71 mg/dL (0.40-1.00); Glucose, Blood 230.0 mg/dL (70-99); Potassium, Blood 3.4 mmol/L (3.5-5.5); Sodium, Blood 138.0 mmol/L (136-145)
[2025-03-10 07:26] VITALS: BP 137/61
[2025-03-10] MEDS ORDERED: Polyethylene Glycol 3350 17 gm PO PRN (09:00)
[2025-03-10] MEDS ORDERED: Calcium/Vit D 600 mg-400 Unit Tab PO SCH (09:00)
[2025-03-10] MEDS ORDERED: DOXY100 PO (13:54)
--- NOTE | 2025-03-10 15:26 | NUR ---
SHIFT/DISCHARGE SUMMARY: PATIENT DENIES CP/PRESSURE, SOB, N/V AND DIZZINESS. PATIENT RECEIVED SCHEDULED MEDS PER EMAR. MIPELEX DRESSING CHANGED TO COCCYX. PATIENT HAS MOD APPETITE, INCONTINENT OF BAB, ATTENDS AND PUREWICK IN PLACE, Q2 TURN. PATIENT A/OX2-3, CONFUSED TO DATES AND CURRENT SITUATION. VITAL SIGNS REVIEWED. PATIENT HAS HAD NO COMPLAINTS OR DENIES NEW CONCERN THIS SHIFT. PIV DC'D BY ALBER. PATIENT DISCHARGE BACK TO [facility]. TR GIVEN TO JAMA CACERES AT [facility]. NICKI VERBALIZED UNDERSTANDING c NO FURTHER QUESTIONS. ALL PERSONAL BELONGINGS WERE SENT c PATIENT. DISCHARGE INSTRUCTIONS PACKET GIVEN TO [employer] . PATIENT LEFT THE ROOM AT 1552 TRANSPORTED VIA GURNEY BY [facility].
[2025-03-10] MEDS ORDERED: Insulin Glargine 100 Unit/ML 3 ML SYR SC SCH (21:00)
== END 2025-03-10 15:24 | DRG 871 ==
LOC: ER 13:49 → PCU 17:22 → MEDS 03-09 23:00
PROVIDERS: Emergency Medicine; ADMIT Family Medicine
DX: A41.9 Sepsis, unspecified organism (principal); G92.8 Other toxic encephalopathy; J18.9 Pneumonia, unspecified organism; N39.0 Urinary tract infection, site not specified; I69.351 Hemiplegia and hemiparesis following cerebral infarction affecting right dominant side; J44.0 Chronic obstructive pulmonary disease with (acute) lower respiratory infection; R65.20 Severe sepsis without septic shock; E11.649 Type 2 diabetes mellitus with hypoglycemia without coma; E11.22 Type 2 diabetes mellitus with diabetic chronic kidney disease; N18.30 Chronic kidney disease, stage 3 unspecified; I12.9 Hypertensive chronic kidney disease with stage 1 through stage 4 chronic kidney disease, or unspecified chronic kidney disease; E03.9 Hypothyroidism, unspecified; F41.9 Anxiety disorder, unspecified; F32.A Depression, unspecified; D63.1 Anemia in chronic kidney disease; M19.90 Unspecified osteoarthritis, unspecified site; E86.0 Dehydration; I69.398 Other sequelae of cerebral infarction; R20.2 Paresthesia of skin; E87.6 Hypokalemia; Z88.0 Allergy status to penicillin; Z88.8 Allergy status to other drugs, medicaments and biological substances; Z88.1 Allergy status to other antibiotic agents; Z88.2 Allergy status to sulfonamides; Z87.891 Personal history of nicotine dependence; I69.320 Aphasia following cerebral infarction; Z79.02 Long term (current) use of antithrombotics/antiplatelets; Z79.890 Hormone replacement therapy; Z79.51 Long term (current) use of inhaled steroids; Z79.4 Long term (current) use of insulin
CPT/HCPCS: 36415; 51701; 70450; 71045; 80048; 80053; 81001; 82803; 82947; 83036; 83605; 83880; 85025; 87040; 87077; 87086; 87186; 87637; 92610; 93005; 93010; 93922; 94640; 94664; 94760; 96365; 96366; 96375; 97112; 97162; 97530; 99285-25; A6590; A9270; C1751; J1200; J1650; J1815; J1956; J3373; J7030; J7040; J7042

== ENCOUNTER 2025-04-11 17:15 | Emergency (ER) | payer OTHER ==
[~2025-04-11] VITALS: Ht 165.1 cm; Wt 65.8 kg
[~2025-04-11 17:15] MED LIST changes: +HUMALOG100 UNIT/1 SC
[2025-04-11 17:40] LABS: BASOPHILS ABSOLUTE AUTO 0.10 K/mm3 (0.00-0.23); BASOPHILS PERCENT AUTO 1 % (0-2); EOSINOPHILS ABSOLUTE AUTO 0.74 K/mm3 (0.00-0.68); EOSINOPHILS PERCENT AUTO 6 % (0-6); Hematocrit 33.8 % (33.0-51.0); Hemoglobin 11.1 g/dL (11.5-16.0); IMMATURE GRAN ABSOLUTE AUTO 0.08 K/mm3 (0.00-0.10); IMMATURE GRAN PERCENT AUTO 1 % (0-1); LYMPHOCYTES ABSOLUTE AUTO 2.64 K/mm3 (0.84-5.20); LYMPHOCYTES PERCENT AUTO 22 % (21-46); MONOCYTES ABSOLUTE AUTO 0.86 K/mm3 (0.16-1.47); MONOCYTES PERCENT AUTO 7 % (4-13); Mean Corpuscular HGB Conc 32.8 g/dL (31.5-36.5); Mean Corpuscular Volume 78 fL (80-100); NEUTROPHILS ABSOLUTE AUTO 7.76 K/mm3 (1.96-9.15); NEUTROPHILS PERCENT AUTO 64 % (41-73); NRBC ABSOLUTE 0.00 K/mm3 (0.00-0.02); NRBC Auto 0.0 /100 WBC (0.0-0.2); Platelet Count 339 K/mm3 (150-400); RDW Coefficient Variation 13.5 % (11.7-14.2); RDW Standard Deviation 38.5 fL (35.1-46.3)
[2025-04-11 18:14] LABS: Alanine Aminotransfer (ALT/SGP 20.0 U/L (12-78); Albumin, Blood 2.3 g/dL (3.4-5.0); Albumin/Globulin Ratio 0.7 (0.8-1.8); Anion Gap 8.0 mmol/L (3-11); Aspartate Aminotrans (AST/SGOT 11.0 U/L (12-37); Bilirubin, Total 0.3 mg/dL (0.1-1.0); Blood Urea Nitrogen 34.0 mg/dL (8-24); CO2, Blood 22.0 mmol/L (21-32); Calcium, Blood 6.9 mg/dL (8.5-10.1); Chloride, Blood 117.0 mmol/L (98-108); Creatinine, Blood 1.6 mg/dL (0.40-1.00); Globulin, Blood 3.4 g/dL (2.2-4.0); Glucose, Blood 124.0 mg/dL (70-99); Potassium, Blood 3.1 mmol/L (3.5-5.5); Sodium, Blood 144.0 mmol/L (136-145); Total Protein, Blood 5.7 g/dL (6.4-8.2)
[2025-04-11 22:31] LABS: Source, Urine Clean Catch
[2025-04-11 23:03] LABS: Bilirubin, Urine Neg (Neg); Color, Urine Pale Yellow (P-Yellow); Glucose Qualitative, Urine 3+ (Neg); Ketones, Urine Neg (Neg); Leukocyte Esterase, Urine Neg (Neg); Protein, Urine 4+ (Neg); Specific Gravity, Urine 1.010 (1.003-1.022); Urobilinogen, Urine NORM (Normal)
[2025-04-11 23:04] LABS: Red Blood Cells, Urine 0-2 /hpf (0-2); White Blood Cells, Urine Not Seen /hpf (0-5)
[2025-04-11 23:30] VITALS: BP 144/62
== END 2025-04-12 00:37 | disposition home or self-care (01) ==
LOC: ER 17:15
DX: S00.81XA Abrasion of other part of head, initial encounter (principal); E78.5 Hyperlipidemia, unspecified; W18.30XA Fall on same level, unspecified, initial encounter; Z87.891 Personal history of nicotine dependence; Z86.73 Personal history of transient ischemic attack (TIA), and cerebral infarction without residual deficits
CPT/HCPCS: 70450; 71046; 73502; 80053; 81001; 85025; 93005; 93010; 99285-25; A6590; A9270